=== PATIENT | female | born 1955 | race Caucasian/White ===

== ENCOUNTER → 2019-09-08 13:48 | Outpatient (CLI) | payer MEDICARE, BC, SELFPAY ==
--- NOTE | 2019-09-08 14:05 | CT_ITS ---
PROCEDURE: CT CHEST W CON CLINCAL INDICATION: abnormal CXR/ RUL mass Right upper lobe mass COMPARISON: No exams were available for comparison TECHNIQUE: IV Contrast: 75ml Optiray 350 Axial images obtained with sagittal and coronal reformats. All CT scans at the facility use one or more dose reduction, viz: automated exposure control, ma/kV adjustment per patient size (including targeted exams where dose is matched to indication, i.e. head), or iterative reconstruction technique. FINDINGS: HEART AND MEDIASTINAL STRUCTURES: No mediastinal or hilar mass or adenopathy. There are few small mediastinal and right hilar lymph nodes noted. LUNGS AND PLEURAL SPACES: 2.2 cm right upper lobe mass. This is well-circumscribed and contains some calcification consistent with a granuloma. There is a 3 mm nodule along the right major fissure inferiorly and a 3 mm nodule in right middle lobe inferiorly. There are mild atelectatic changes or fibrotic changes in the right lung base posteriorly. There is a 4 mm noncalcified nodule in the left upper lobe BONY STRUCTURES: Mild thoracic scoliosis convex right with mild degenerative changes in the thoracic spine UPPER ABDOMEN: 3 cm hypodense lesion in the central aspect of the spleen. The margins are somewhat lobulated. ADDITIONAL FINDINGS: No other significant abnormalities. IMPRESSION: 1. Right upper lobe nodule corresponds to a partially calcified well-circumscribed nodule consistent with a granuloma. 2. There are scattered small pulmonary nodules which are 4 mm or less and are nonspecific. Consider 1 year follow-up to confirm stability. 3. Indeterminate splenic lesion measuring 3 cm. Most common etiology would include cyst or hemangioma. One cannot exclude the possibility of a metastatic focus. Ultrasound may be of further value to determine cystic or solid nature. Dictated by: Celso Warner MD 09/09/2019 07:03 Electronically signed by Celso Warner MD in [place] 09/09/2019 07:03
[2019-09-08 14:29] LABS: Blood Urea Nitrogen 16 mg/dL (7-18); Creatinine,Serum 1.19 mg/dL (0.55-1.02); Estimated Glomerular Filt Rate 46 ml/min (>60); GFR (African American) 55 ML/MIN (>60)
== END ==
PROVIDERS: PCP Emergency Medicine; Visit Provider Emergency Medicine
DX: Z01.812 Encounter for preprocedural laboratory examination (principal); R91.8 Other nonspecific abnormal finding of lung field
CPT/HCPCS: 36415; 71260; 82565; 84520; Q9967

== ENCOUNTER → 2020-03-08 13:11 | Outpatient (CLI) | payer MEDICARE, BC, SELFPAY ==
--- NOTE | 2020-03-08 13:11 | CT_ITS ---
PROCEDURE: CT CHEST WO CON CLINICAL INDICATION: 6 mth f/u COMPARISON: CT CT CHEST W CON from 09/08/2019 TECHNIQUE: Axial images obtained with sagittal and coronal reformats. All CT scans at the facility use one or more dose reduction, viz: automated exposure control, ma/kV adjustment per patient size (including targeted exams where dose is matched to indication, i.e. head), or iterative reconstruction technique. FINDINGS: HEART AND MEDIASTINAL STRUCTURES: Mediastinal or hilar mass or adenopathy. There are coronary artery calcifications present. LUNGS AND PLEURAL SPACES: Partially calcified right upper lobe nodule once again noted unchanged. There are mild atelectatic changes in the left lung base posteriorly. 2 mm nodules present in the right lower lobe posteriorly, right lower lobe anteriorly and right middle lobe unchanged. Small left upper lobe nodule at approximately 3-4 mm unchanged BONY STRUCTURES: There is ankylosis of the thoracic spine with thoracic scoliosis convex right. UPPER ABDOMEN: There is a low-dense lesion within the liver once again noted at 3 cm in with with some minimal peripheral calcification. This is not significantly changed. Incidental note made of bilateral calcification within the breast. Mammographic correlation recommended. ADDITIONAL FINDINGS: No other significant abnormalities. IMPRESSION: 1. Overall no change in the appearance of the chest with evidence of old granulomatous disease and small bilateral nodular opacities. No new nodules evident. 2. No change in the 3 cm lesion of the spleen. 3. Bilateral breast calcifications for which mammographic correlation is suggested. Dictated by: Celso Warner MD 03/09/2020 11:04 Celso Warner MD in [place] 03/09/2020 11:04
== END ==
PROVIDERS: PCP Emergency Medicine; Visit Provider Emergency Medicine
DX: R91.1 Solitary pulmonary nodule (principal)
CPT/HCPCS: 71250

== ENCOUNTER → 2020-09-20 12:39 | Outpatient (CLI) | payer MEDICARE, BC, SELFPAY ==
--- NOTE | 2020-09-20 12:43 | CT_ITS ---
PROCEDURE: CT CHEST W CON CLINCAL INDICATION: ABN CXR Follow up lung nodule Non-productive cough Pt hydrating X-Rays on pacs COMPARISON: CT CT CHEST WO CON from 03/08/2020 TECHNIQUE: IV Contrast: 75ml Isovue 370 Axial images obtained with sagittal and coronal reformats. All CT scans at the facility use one or more dose reduction, viz: automated exposure control, ma/kV adjustment per patient size (including targeted exams where dose is matched to indication, i.e. head), or iterative reconstruction technique. FINDINGS: HEART AND MEDIASTINAL STRUCTURES: Unremarkable. LUNGS AND PLEURAL SPACES: Partially calcified right upper lobe nodule once again noted measuring 2 cm unchanged. There are mild atelectatic or fibrotic changes in the lung bases. 3 mm nodule left upper lobe unchanged. No new nodules evident. BONY STRUCTURES: Mild thoracic scoliosis convex right with ankylosis of the midthoracic spine UPPER ABDOMEN: 3 cm hypodense lesion of the spleen is unchanged. ADDITIONAL FINDINGS: Bilateral breast calcifications once again noted IMPRESSION: Overall stable CT appearance of the chest. No change 3 cm splenic lesion Dictated by: Celso Warner MD 09/21/2020 13:18 Celso Warner MD in [place] 09/21/2020 13:18
[2020-09-20 13:18] LABS: Blood Urea Nitrogen 25 mg/dl (7-17); Estimated Glomerular Filt Rate 32 ml/min (>60); GFR (African American) 39 ML/MIN (>60)
== END ==
PROVIDERS: PCP Emergency Medicine; Visit Provider Emergency Medicine
DX: R91.1 Solitary pulmonary nodule (principal); R05 Cough; R93.89 Abnormal findings on diagnostic imaging of other specified body structures
CPT/HCPCS: 36415; 71260; 82565; 84520; Q9967

== ENCOUNTER → 2020-09-27 10:23 | Outpatient (CLI) | payer MEDICARE, BC, SELFPAY ==
[2020-09-30 11:45] LABS: Aspergillus flavus Negative (Neg:<1:1); Aspergillus fumigatus Negative (Neg:<1:1); Aspergillus niger Negative (Neg:<1:1)
[2020-09-30 14:01] LABS: Blastomyces Antibody Negative (Neg:<1:1)
[2020-10-03 13:27] LABS: QuantiFERON-TB Gold Plus Negative (Negative)
== END ==
PROVIDERS: Visit Provider Internal Medicine Pulmonary Disease
DX: J84.10 Pulmonary fibrosis, unspecified (principal); Z72.0 Tobacco use
CPT/HCPCS: 36415; 86480; 86606; 86612

== ENCOUNTER → 2020-11-01 07:45 | Outpatient (CLI) | payer MEDICARE, BC, SELFPAY ==
--- NOTE | 2020-11-01 08:22 | CT_ITS ---
PROCEDURE: CT CHEST W CON CLINCAL INDICATION: CHEST PAIN Follow up Lung nodule COMPARISON: CT CT CHEST W CON from 09/08/[address] CHEST W CON from 09/20/2020 TECHNIQUE: IV Contrast: 75ml Isovue 370 Axial images obtained with sagittal and coronal reformats. All CT scans at the facility use one or more dose reduction, viz: automated exposure control, ma/kV adjustment per patient size (including targeted exams where dose is matched to indication, i.e. head), or iterative reconstruction technique. FINDINGS: HEART AND MEDIASTINAL STRUCTURES: No mediastinal or hilar mass or adenopathy. There is mild thickening of the pericardium anteriorly on the right the suggesting small effusion. LUNGS AND PLEURAL SPACES: COPD changes. Partially calcified 2.2 cm right upper lobe nodule once again noted benign-appearing consistent with a granuloma. 3 mm nodule right lower lobe anteriorly unchanged. Minimal atelectatic or fibrotic changes are present in the lung bases. There is mild degree of motion artifact which does somewhat obscure fine detail. 3 mm noncalcified nodule left lower lobe unchanged. 3 mm nodule left upper lobe unchanged. No new nodules are evident. BONY STRUCTURES: There is mild midthoracic curvature convex right UPPER ABDOMEN: 3 cm hypodense lesion of the spleen unchanged ADDITIONAL FINDINGS: There are bilateral breast calcifications. These may be better evaluated with mammography. IMPRESSION: 1. Overall stable CT appearance of the chest. No change in the pulmonary nodules. 2. COPD with atelectatic or fibrotic changes in the lung bases 3. No change 3 cm hypodense lesion of the spleen. 4. Bilateral breast calcifications are present. Suggest mammography for further evaluation Dictated by: Celso Warner MD 11/02/2020 12:48 Celso Warner MD in [place] 11/02/2020 12:48
[2020-11-01 08:47] LABS: Blood Urea Nitrogen 26 mg/dl (7-17); Estimated Glomerular Filt Rate 35 ml/min (>60); GFR (African American) 42 ML/MIN (>60)
== END ==
PROVIDERS: PCP Emergency Medicine; Visit Provider Emergency Medicine
DX: R07.9 Chest pain, unspecified (principal)
CPT/HCPCS: 36415; 71260; 82565; 84520; Q9967

== ENCOUNTER 2021-01-20 01:56 | Emergency (ER) | payer MEDICARE, BC, SELFPAY ==
[2021-01-20 01:59] VITALS: BP 160/70; PULSE 76; RESP 16; TEMP 36.5; O2SAT 97; BMI 45.1
--- NOTE | 2021-01-20 02:04 | ECG_ITS ---
APPROVED REPORT Exam: Resting ECG HR:73 bpm ECG Measurements Heart Rate 73 AXES PA 182 P 64 QRSd 104 QRS 36 QT 388 T -6 QTc 427 Conclusion Normal sinus rhythm with sinus arrhythmia ST & T wave abnormality, consider inferior ischemia Abnormal ECG Electronically signed by : Trevin Yung, 01/21/2021 17:33:00
--- NOTE | 2021-01-20 02:13 | XR_ITS ---
PROCEDURE INFORMATION: Exam: XR Chest Exam date and time: 01/20/2021 2:13 AM Age: 65 years old Clinical indication: Injury or trauma; Blunt trauma (contusions or hematomas); Patient HX: Fall, syncope, lac to back of head TECHNIQUE: Imaging protocol: XR of the chest. Views: 2 views. COMPARISON: CT CHEST W CON 11/01/2020 9:31 AM FINDINGS: Lungs: Stable appearance of right upper lobe solid pulmonary nodule. No focal consolidation. No appreciable pulmonary edema. Pleural spaces: No pleural effusion. No pneumothorax. Heart/Mediastinum: Cardiomediastinal silouhette is unchanged. Bones/joints: No acute osseous abnormality. Soft tissues: Unremarkable. IMPRESSION: No acute findings.
--- NOTE | 2021-01-20 02:13 | CT_ITS ---
PROCEDURE INFORMATION: Exam: CT Head Without Contrast Exam date and time: 01/20/2021 2:13 AM Age: 65 years old Clinical indication: Injury or trauma; Laceration; Consciousness not specified; Without residual foreign body; Scalp; Syncope and collapse; Patient HX: Syncope, fall with lac to back of head; Additional info: Fall with head lac TECHNIQUE: Imaging protocol: Computed tomography of the head without contrast. Radiation optimization: All CT scans at this facility use at least one of these dose optimization techniques: automated exposure control; mA and/or kV adjustment per patient size (includes targeted exams where dose is matched to clinical indication); or iterative reconstruction. COMPARISON: No relevant prior studies available. FINDINGS: Brain: Age appropriate atrophy and small vessel ischemic change. No evidence of intracranial hemorrhage, mass effect, midline shift or extra-axial fluid collections. Midline structures are normal. Atkins-white matter differentiation is normal. Cerebral ventricles: No ventriculomegaly. Paranasal sinuses: Visualized sinuses are unremarkable. No fluid levels. Mastoid air cells: Visualized mastoid air cells are well aerated. Vasculature: Carotid atherosclerotic calcification. Bones/joints: Unremarkable. No acute fracture. Soft tissues: There is a left parietal scalp laceration and hematoma. IMPRESSION: No acute intracranial injury.
--- NOTE | 2021-01-20 02:13 | CT_ITS ---
PROCEDURE INFORMATION: Exam: CT Cervical Spine Without Contrast Exam date and time: 01/20/2021 2:13 AM Age: 65 years old Clinical indication: Injury or trauma; Other: Syncope; Laceration; Not specified; Patient HX: Fall with lac to back of head; Additional info: Fall with head lac TECHNIQUE: Imaging protocol: Computed tomography images of the cervical spine without contrast. Radiation optimization: All CT scans at this facility use at least one of these dose optimization techniques: automated exposure control; mA and/or kV adjustment per patient size (includes targeted exams where dose is matched to clinical indication); or iterative reconstruction. COMPARISON: CT CHEST W CON 11/01/2020 9:31 AM FINDINGS: Vertebrae: No acute fracture. Normal alignment. Soft tissues: Unremarkable. Lungs: Lung apices are normal. IMPRESSION: No acute findings.
--- NOTE | 2021-01-20 02:13 | XR_ITS ---
PROCEDURE INFORMATION: Exam: XR Pelvis Exam date and time: 01/20/2021 2:13 AM Age: 65 years old Clinical indication: Injury or trauma; Fall; Blunt trauma (contusions or hematomas); Bilateral; Pelvic region TECHNIQUE: Imaging protocol: XR pelvis. Views: 1 or 2 view. COMPARISON: No relevant prior studies available. FINDINGS: Bones/joints: No acute fracture or malalignment. Pubic symphysis and bilateral sacroiliac joints are congruent. Soft tissues: Unremarkable. IMPRESSION: No acute findings.
[2021-01-20 02:29] LABS: Alanine Aminotransferase 10 U/L (12-78); Albumin Level 4.4 g/dl (3.5-5.0); Alkaline Phosphatase 95 U/L (38-126); Anion Gap 12.2 mEq/L (5-15); Aspartate Amino Transferase 22 U/L (14-36); Bilirubin,Total 0.5 mg/dl (0.2-1.3); Blood Urea Nitrogen 27 mg/dl (7-17); Calcium 9.7 mg/dl (8.4-10.2); Carbon Dioxide 31 mmol/L (22.0-30.0); Chloride 97 mmol/L (98-107); Creatinine Clearance Estimated 12 mL/min (50-200); Estimated Glomerular Filt Rate 35 ml/min (>60); GFR (African American) 42 ML/MIN (>60); Globulin 4.6 g/dL (1.3-3.2); Glucose 109 mg/dl (74-100); Potassium 4.2 mmoL/L (3.5-5.1); Sodium 136 mmol/L (136-145)
[2021-01-20 02:34] LABS: C-Reactive Protein 20.9 mg/L (0-4)
[2021-01-20 02:37] LABS: Basophils % 0.4 % (0.1-2.0); Eosinophils # 0.3 K/mm3 (0.0-0.4); Eosinophils % 3.1 % (0.1-12.0); Hemoglobin 10.3 g/dL (12.2-16.2); Lymphocytes # 2.1 K/mm3 (0.7-4.5); Lymphocytes % 24.2 % (10-50); Mean Corpuscular HGB Conc 33.2 g/dL (31.8-35.4); Mean Corpuscular Volume 81.1 fl (81-99); Mean Platelet Volume 7.9 fl (7.4-10.4); Monocytes # 0.3 K/mm3 (0.1-1.0); Monocytes % 3.8 % (1.7-9.3); Neutrophils # 5.9 K/mm3 (1.8-7.8); Neutrophils % 68.6 % (37.0-80.0); Platelet Count 266 K/mm3 (142-424); Red Blood Count 3.82 M/mm3 (4.20-5.40); Red Cell Distribution Width 16.8 % (11.5-17.5); White Blood Count 8.6 K/mm3 (4.8-10.8)
[2021-01-20 02:46] LABS: Troponin I < 0.01 ng/ml (0.00-0.034)
[2021-01-20 03:01] LABS: Erythrocyte Sedimentation Rate 117 mm/hr (0-30)
[2021-01-20 03:57] VITALS: BP 154/60; PULSE 61; O2SAT 98
[2021-01-20 04:15] VITALS: BP 176/63; PULSE 60; O2SAT 97
[2021-01-20 04:31] VITALS: BP 173/68; PULSE 61; O2SAT 98
--- NOTE | 2021-01-20 04:38 | HMH.EDSYNC ---
ED Disposition Clinical Impression: Vasovagal syncope, Renal insufficiency Scalp laceration Qualifiers: Encounter type: initial encounter Qualified Code(s): S01.01XA - Laceration without foreign body of scalp, initial encounter Hypertension Qualifiers: Hypertension type: essential hypertension Qualified Code(s): I10 - Essential (primary) hypertension Diabetes mellitus type II, controlled Qualifiers: Diabetes mellitus detention insulin use: unspecified technician terminal and repeater insulin use status Diabetes mellitus complication status: with other specified complication Qualified Code(s): E11.69 - Type 2 diabetes mellitus with other specified complication Conjunctivitis Qualifiers: Conjunctivitis type: acute Acute conjunctivitis type: unspecified Laterality: bilateral Qualified Code(s): H10.33 - Unspecified acute conjunctivitis, bilateral Disposition: Home, Self-Care Condition on Discharge: Good Instructions: DI for Syncope in Adults (Fainting) Additional Instructions: lex out 10 days and use eye drops bid x 3 days Referrals: Lasha Boogie MD [Primary Care Provider] - - Critical Care Critical Care Time: No Attestation: On 01/20/21, the high probability of a clinically significant, sudden or life threatening deterioration of the following system(s) required my full and direct attention, intervention and personal management. The time I documented below is in addition to time spent performing reported procedures but includes the following listed in this critical care notation. Medical Decision Making - Medical Records Medical records reviewed: Yes: I reviewed the patient's medical records. - [place] Inquiry Pt receiving controlled substance: No Vital Signs: 01/20/21 01:59 01/20/21 03:57 01/20/21 04:15 Temperature 97.7 F Temperature Source Oral Pulse Rate 61 60 Pulse Rate [Right] 76 Respiratory Rate 16 Blood Pressure 154/60 H 176/63 H Blood Pressure [Right Arm] 160/70 H Blood Pressure Mean Blood Pressure Mean [Right Arm] 100 Blood Pressure Source [Right Arm] Automatic Cuff Blood Pressure Position [Right Arm] Supine 02 Sat by Pulse Oximetry 97 98 97 Oxygen Delivery Method Room Air 01/20/21 04:31 01/20/21 05:31 Temperature Temperature Source Pulse Rate 61 58 L Pulse Rate [Right] Respiratory Rate Blood Pressure 173/68 H 173/61 H Blood Pressure [Right Arm] Blood Pressure Mean 102 Blood Pressure Mean [Right Arm] Blood Pressure Source [Right Arm] Blood Pressure Position [Right Arm] 02 Sat by Pulse Oximetry 98 97 Oxygen Delivery Method - Lab Data Lab results reviewed: Yes: I reviewed the patient's lab results. Lab Results 01/20/21 02:08: WBC 8.6, RBC 3.82 L, Hgb 10.3 L, Hct 31.0 L, MCV 81.1, MCH 27.0, MCHC 33.2, RDW 16.8, Plt Count 266, MPV 7.9, Neut % (Auto) 68.6, Lymph % (Auto) 24.2, Cache % (Auto) 3.8, Eos % (Auto) 3.1, Baso % (Auto) 0.4, Neut # (Auto) 5.9, Lymph # (Auto) 2.1, Cache # (Auto) 0.3, Eos # (Auto) 0.3, Baso # (Auto) 0.0, ESR 117 H 01/20/21 02:08: Sodium 136, Potassium 4.2, Chloride 97 L, Carbon Dioxide 31 H, Anion Gap 12.2, BUN 27 H, Creatinine 1.50 H, Estimated Creat Clear 12, Estimated GFR 35 L, Est GFR ( Amer) 42 L, Glucose 109 H, Calcium 9.7, Total Bilirubin 0.5, AST 22, ALT 10 L, Alkaline Phosphatase 95, Troponin I < 0.01, C-Reactive Protein 20.9 H, Total Protein 9.0 H, Albumin 4.4, Globulin 4.6 H, Albumin/Globulin Ratio 1.0 L, Procalcitonin 0.080 01/20/21 05:20: Urine Color Yellow, Urine Appearance Sl cloudy, Urine pH 6.0, Ur Specific [place] <= 1.005, Urine Protein Negative, Urine Glucose (UA) Negative, Urine Ketones Negative, Urine Blood Negative, Urine Nitrate Negative, Urine Bilirubin Negative, Urine Urobilinogen 0.2, Ur Leukocyte Esterase Negative, Urine Bacteria Trace Result diagrams: 01/20/21 02:08 01/20/21 02:08 Orders (Tests/Meds): ED MEDICATIONS Generic Name Dose Route Start Last Admin Trade Name Freq PRN Reason Stop Do
[2021-01-20 05:31] VITALS: BP 173/61; PULSE 58; O2SAT 97
[2021-01-20 05:32] LABS: Microscopic, Urine URINE MICROSCOPIC (MICROSCOPIC)
[2021-01-20 05:35] LABS: Appearance,Urine SL CLOUDY (Clear); Bilirubin,Urine Negative (Negative); Blood, Urine Negative (Negative); Color,Urine YELLOW (Yellow); Glucose,Urine (UA) Negative (Negative); Ketones,Urine Negative (Negative); Leukocyte Esterase,Urine Negative (Negative); Nitrate,Urine Negative (Negative); Protein,Urine Negative (Negative); Specific Gravity, Urine <= 1.005 (1.005-1.030); Urobilinogen,Urine 0.2 EU/dl (0.2)
[2021-01-20 05:46] LABS: Bacteria,Urine Trace /lpf
[2021-01-20 06:32] VITALS: BP 167/72; PULSE 61; RESP 16; TEMP 36.5; O2SAT 97
== END 2021-01-20 06:45 | disposition home or self-care (01) ==
PROVIDERS: Emergency Provider Emergency Medicine; PCP Emergency Medicine
DX: R55 Syncope and collapse (principal)
CPT/HCPCS: 70450; 71046; 72125; 72170; 80053; 81001; 84145; 84484; 85025; 85651; 86140; 87070; 87077; 87186; 90471; 90714; 93005; 96365; 96366; 96375; 99283

== ENCOUNTER 2021-01-20 08:55 | Emergency (ER) | payer MEDICARE, BC, SELFPAY ==
[2021-01-20 08:56] VITALS: BP 139/52; PULSE 65; RESP 18; TEMP 36.4; O2SAT 98; BMI 31.1
[2021-01-20 08:58] VITALS: BP 144/60; PULSE 61; O2SAT 100
--- NOTE | 2021-01-20 09:00 | PC.NURSE ---
Doctor at bedside suturing wound.
--- NOTE | 2021-01-20 09:16 | HMH.EDGENADL ---
ED Disposition Clinical Impression: Scalp laceration Qualifiers: Encounter type: initial encounter Qualified Code(s): S01.01XA - Laceration without foreign body of scalp, initial encounter Disposition: Home, Self-Care Condition on Discharge: Good Instructions: DI for Laceration Repair -- [place] Additional Instructions: Additional instructions for SCALP LACERATION: Clean the wound daily with soap and water. You may shower and shampoo your hair. Avoid submerging the wound. No swimming.. Apply a thin film of antibiotic ointment such as neosporin, polysporin, or triple antibiotic daily after showering. Be careful when combing or brushing hair so that you so not snag the lex with a comb or brush. See your primary care physician or return to the [facility] in 7 days for staple removal. The [facility] is open 9AM to 9 PM, 7 days a week. Return if any signs of infection including increasing pain, pus drainage, swelling, redness, red streaks, or fever. Referrals: Provider,Referral, [Primary Care Provider] - - Critical Care Critical Care Time: No Attestation: On 01/20/21, the high probability of a clinically significant, sudden or life threatening deterioration of the following system(s) required my full and direct attention, intervention and personal management. The time I documented below is in addition to time spent performing reported procedures but includes the following listed in this critical care notation. Medical Decision Making - [place] Inquiry Pt receiving controlled substance: No Vital Signs: 01/20/21 08:56 01/20/21 08:58 Temperature 97.5 F L Temperature Source Oral Pulse Rate 61 Pulse Rate [Right] 65 Respiratory Rate 18 Blood Pressure 144/60 H Blood Pressure [Right Arm] 139/52 L Blood Pressure Mean [Right Arm] 81 02 Sat by Pulse Oximetry 98 100 Oxygen Delivery Method Room Air Room Air General Adult HPI - General Chief complaint: Wound/Laceration Stated complaint: laceration Time Seen by Provider: 01/20/21 08:55 Mode of Arrival: EMS Limitations: No Limitations Description of Symptoms (Recalled from ER Triage Doc. by RN): pt via EMS from [facility] for cut to back of head still bleeding. seen in ED last night for fall & lac repaired in ED. - History of Present Illness HPI narrative: Brought in by ambulance from [facility] for continued bleeding from a scalp laceration. Laceration was repaired last night in the emergency department with lex. Continues to trickle blood. The patient has no other complaints. - Related Data Home Medications Medication Instructions Recorded Confirmed atorvastatin 20 mg tablet 20 mg PO DAILY 09/02/19 01/20/21 furosemide 40 mg tablet 40 mg PO DAILY 09/02/19 01/20/21 hydrochlorothiazide 12.5 mg capsule 12.5 mg PO DAILY 09/02/19 01/20/21 melatonin 5 mg capsule 5 mg PO QHS cap 09/02/19 01/20/21 metformin 750 mg tablet,extended 750 mg PO BID 09/02/19 01/20/21 release 24 hr mirtazapine 15 mg tablet 15 mg PO QHS 09/02/19 01/20/21 paliperidone palmitate 234 mg/1.5 234 mg IM .q 4 weeks ml 09/02/19 01/20/21 mL intramuscular syringe prazosin 2 mg capsule 2 mg PO QHS 09/02/19 01/20/21 sertraline 100 mg tablet 150 mg PO DAILY 01/01/21 01/20/21 Oxybutynin Chloride [Ditropan Xl] 5 mg PO DAILY 01/20/21 01/20/21 Allergies Allergy/AdvReac Type Severity Reaction Status Date / Time latex Allergy Intermediate Rash Verified 01/01/21 11:20 Sulfa (Sulfonamide Allergy Intermediate Rash Verified 01/01/21 11:20 Antibiotics) [facility] History - Hepatitis A Screen Drug use history?: No High risk sexual behaviors?: No History of sexually transmitted infection?: No Currently employed?: No Childcare worker?: No Do you have indoor plumbing?: Yes Do you have electricity?: Yes Attestation statement:: This patient has been screened for Hepatitis A risk factors. I have reviewed the patient's past medical history: Yes
--- NOTE | 2021-01-20 09:28 | PC.NURSE ---
Assisted MD with laceration. Pt tolerated well.
[2021-01-20 09:32] VITALS: BP 133/64; PULSE 69; O2SAT 96
--- NOTE | 2021-01-20 09:40 | PC.NURSE ---
Called Sari to contact Wayne due to no answer. Will contact to notify pt is ready for DC
[2021-01-20 09:44] VITALS: BP 133/64; PULSE 72; RESP 18; TEMP 36.6; O2SAT 96
== END 2021-01-20 10:45 | disposition home or self-care (01) ==
PROVIDERS: Emergency Provider Emergency Medicine; PCP Emergency Medicine
DX: R55 Syncope and collapse (principal); S01.01XA Laceration without foreign body of scalp, initial encounter; W18.09XA Striking against other object with subsequent fall, initial encounter; Y92.013 Bedroom of single-family (private) house as the place of occurrence of the external cause; I10 Essential (primary) hypertension; E11.69 Type 2 diabetes mellitus with other specified complication; H10.33 Unspecified acute conjunctivitis, bilateral; F41.8 Other specified anxiety disorders; Z79.899 Other long term (current) drug therapy; Z28.9 Immunization not carried out for unspecified reason
CPT/HCPCS: 12001; 70450; 71046; 72125; 72170; 80053; 81001; 84145; 84484; 85025; 85651; 86140; 87070; 87077; 90471; 90714; 93005; 96365; 96366; 96375; 99281; 99283

== ENCOUNTER → 2021-06-07 10:40 | Outpatient (CLI) | payer MEDICARE, BC, SELFPAY | PROVIDERS: Visit Provider Nurse Practitioner Family | DX: N39.0 Urinary tract infection, site not specified (principal) ==

== ENCOUNTER → 2021-06-10 13:05 | Outpatient (POV) | payer MEDICARE, BC, SELFPAY | PROVIDERS: Visit Provider Internal Medicine Nephrology | DX: Z00.00 Encounter for general adult medical examination without abnormal findings (principal) ==

== ENCOUNTER → 2021-06-13 09:13 | Outpatient (CLI) | payer MEDICARE, BC, SELFPAY ==
[2021-06-13 09:16] LABS: Microscopic, Urine URINE MICROSCOPIC (MICROSCOPIC)
[2021-06-13 11:24] LABS: Appearance,Urine CLEAR (Clear); Bilirubin,Urine Negative (Negative); Blood, Urine Negative (Negative); Color,Urine YELLOW (Yellow); Glucose,Urine (UA) Negative (Negative); Ketones,Urine Negative (Negative); Leukocyte Esterase,Urine 1+ (Negative); Nitrate,Urine Negative (Negative); PH,Urine 5.5 (5.0-8.5); Protein,Urine Negative (Negative); Specific Gravity, Urine <= 1.005 (1.005-1.030); Urobilinogen,Urine 0.2 EU/dl (0.2)
[2021-06-13 11:36] LABS: Bacteria,Urine 1+ /lpf; RBC,Urine Occasional #/hpf (0-3)
== END ==
PROVIDERS: Visit Provider Nurse Practitioner Family
DX: N39.0 Urinary tract infection, site not specified (principal)
CPT/HCPCS: 81001; 87086

== ENCOUNTER → 2021-12-09 11:15 | Outpatient (POV) | payer MEDICARE, BC, SELFPAY | PROVIDERS: Visit Provider Internal Medicine Nephrology | DX: Z00.00 Encounter for general adult medical examination without abnormal findings (principal) ==

== ENCOUNTER → 2021-12-09 12:34 | Outpatient (CLI) | payer MEDICARE, BC, SELFPAY ==
[2021-12-09 13:05] LABS: Basophils # 0.1 K/mm3 (0-0.2); Basophils % 1.6 % (0.1-2.0); Eosinophils # 0.3 K/mm3 (0.0-0.4); Eosinophils % 4.1 % (0.1-12.0); Hematocrit 34.1 % (37.0-47.0); Hemoglobin 11.4 g/dL (12.2-16.2); Lymphocytes # 1.6 K/mm3 (0.7-4.5); Lymphocytes % 24.3 % (10-50); Mean Corpuscular HGB Conc 33.4 g/dL (31.8-35.4); Mean Corpuscular Volume 83.6 fl (81-99); Mean Platelet Volume 7.7 fl (7.4-10.4); Monocytes # 0.4 K/mm3 (0.1-1.0); Monocytes % 5.4 % (1.7-9.3); Neutrophils # 4.2 K/mm3 (1.8-7.8); Neutrophils % 64.6 % (37.0-80.0); Platelet Count 244 K/mm3 (142-424); Red Blood Count 4.08 M/mm3 (4.20-5.40); Red Cell Distribution Width 15.9 % (11.5-17.5); White Blood Count 6.6 K/mm3 (4.8-10.8)
[2021-12-09 13:51] LABS: Albumin Level 4.3 g/dl (3.5-5.0); Anion Gap 10.3 mEq/L (5-15); Blood Urea Nitrogen 27 mg/dl (7-17); Calcium 10.1 mg/dl (8.4-10.2); Carbon Dioxide 31 mmol/L (22.0-30.0); Chloride 99 mmol/L (98-107); Estimated Glomerular Filt Rate 41 ml/min (>60); GFR (African American) 50 ML/MIN (>60); Glucose 91 mg/dl (74-100); Phosphorous 4.4 mg/dl (2.5-4.5); Potassium 4.3 mmoL/L (3.5-5.1); Sodium 136 mmol/L (136-145)
[2021-12-09 14:51] LABS: Creatinine,Urine Random 27 mg/dL (Not Estab.); Microalbumin < 6.000 mg/L (0-16.7)
== END ==
PROVIDERS: PCP Emergency Medicine; Visit Provider Internal Medicine Nephrology
DX: N18.32 Chronic kidney disease, stage 3b (principal)
CPT/HCPCS: 36415; 80069; 82043; 82570; 85025

== ENCOUNTER → 2023-06-03 15:37 | Outpatient (CLI) | payer MEDICARE, OTHER, BC, SELFPAY ==
--- NOTE | 2023-06-03 15:41 | CT_ITS ---
FINAL REPORT TECHNIQUE: Thin section axial images were obtained through the lungs using a low-dose technique per lung cancer screening protocol. Reconstruction images were obtained using the axial data. Exam was performed using dose reduction technique. CLINICAL HISTORY: lung cancer screening smoker, .5 ppd x 2 years COMPARISON: CT chest 11/01/2020 FINDINGS: CTDLvol: 2.90 DLP: 99.51 Current smoker Half pack per day for 2 years Lungs: There is a 3 mm left upper lobe nodule seen on image 23 which is new from prior. There is evidence of prior granulomatous disease with a large right upper lobe granuloma which is stable. There is a 3 mm nodule along the anterior right lower lobe which is unchanged. The lungs are otherwise clear. Lymph nodes: There are mildly prominent bilateral axillary lymph nodes which are unchanged and favored to be reactive. No other lymphadenopathy. Mediastinum: Heart size is normal. Pleura/pericardium: No pleural or pericardial effusion. Other: No acute abnormality in the upper abdomen. IMPRESSION: New left upper lobe 3 mm nodule and other stable lung findings. Lung RADS: 2 Recommendation: 12-month CT chest low-dose Reviewed, Interpreted and Dictated by Eugenie Velasco MD Transcribed by Neelam Bhatti Authenticated and [facility]
== END ==
PROVIDERS: PCP Emergency Medicine; Visit Provider Emergency Medicine
DX: R93.89 Abnormal findings on diagnostic imaging of other specified body structures (principal); Z87.891 Personal history of nicotine dependence
CPT/HCPCS: 71271

== ENCOUNTER → 2023-07-06 16:25 | Outpatient (CLI) | payer MEDICARE, OTHER, BC, SELFPAY ==
--- NOTE | 2023-07-06 16:26 | MM_ITS ---
PROCEDURE INFORMATION: Exam: MG Bilateral Screening 3D Mammography Exam date and time: 07/06/2023 4:22 PM Age: 67 years old Clinical indication: Screening examination TECHNIQUE: Imaging protocol: Bilateral Screening tomosynthesis and 2D mammography including computer-aided detection (CAD) when performed. Scoliosis. Difficult to position COMPARISON: No relevant prior studies available. Baseline FINDINGS: MAMMOGRAPHY: Breast composition: The breasts are heterogeneously dense, which may obscure small masses. Mass: Questionable 1.2 cm mass in the posterior left 9 o'clock axis Architectural distortion: None. Calcifications: No suspicious calcifications. Asymmetric density: None. Skin thickening: None. Axillary adenopathy: Limited evaluation of posterior tissue and axilla due to the patient's inability to fully cooperate with the examination. IMPRESSION: Patient to be recalled for spot compression views of the left breast in the CC and MLO projections, a full 90 degree lateral view, and left breast ultrasound for further evaluation of a left breast mass. ASSESSMENT: BI-RADS Category 0: Incomplete- Need Additional Imaging Evaluation and/or Prior Mammograms for Comparison
== END ==
PROVIDERS: PCP Emergency Medicine; Visit Provider Emergency Medicine
DX: Z12.31 Encounter for screening mammogram for malignant neoplasm of breast (principal)
CPT/HCPCS: 77063; 77067

== ENCOUNTER 2023-11-19 18:11 | Inpatient (IN) | payer MEDICARE, OTHER, BC, SELFPAY ==
[2023-11-19 18:11] VITALS: BP 121/55; PULSE 96; RESP 18; TEMP 36.7; O2SAT 98; BMI 26.2
--- NOTE | 2023-11-19 18:14 | ED_ITS ---
Discharge Plan Disposition Patient Disposition: Admitted Condition: Fair Prescriptions Prescriptions: No Action sertraline 100 mg tablet 150 mg PO DAILY atorvastatin [Lipitor] 20 mg tablet 20 mg PO DAILY furosemide 40 mg tablet 40 mg PO DAILY hydrochlorothiazide 12.5 mg capsule 12.5 mg PO DAILY melatonin 5 mg capsule 5 mg PO QHS metformin 750 mg tablet extended release 24 hr 750 mg PO BID mirtazapine 15 mg tablet 15 mg PO QHS Invega Sustenna 234 mg/1.5 mL syringe 234 mg IM .q 4 weeks Patient Comments: due 09/21/19 prazosin 2 mg capsule 2 mg PO QHS oxybutynin chloride 5 MG tablet extended release 24hr 5 mg PO DAILY Referrals Follow up/Referrals: Provider,Referral, MD [Primary Care Provider] - See instructions Clinical Impressions Clinical Impression: Acute nontraumatic kidney injury, Vaginal yeast infection, Lactic acidosis, Abdominal pain, lower Instructions Patient Instructions: DI for Acute Abdominal Pain Discharge ED Provider: Ollie Slater General Adult HPI General Chief complaint: Abdominal Pain Stated complaint: ABD pain Time Seen by Provider: 11/19/23 18:13 History of Present Illness HPI narrative: Patient presents for evaluation of abdominal pain. Patient states that her pain began around 9 AM this morning. She has not had any chest pain shortness of breath fever chills hemoptysis hematochezia melena nausea vomiting diarrhea. She has tolerated 3 meals today. She states her pain is in the lower abdomen nonradiating persistent. Patient has past medical history of chronic renal insufficiency, type 2 diabetes mellitus, hyperlipidemia, PTSD, hypertension and major depressive disorder. Related Data Home Medications Medication Instructions Recorded Confirmed atorvastatin 20 mg tablet (Lipitor) 20 mg PO DAILY High cholesterol 09/02/19 01/20/21 furosemide 40 mg tablet 40 mg PO DAILY Fluid 09/02/19 01/20/21 hydrochlorothiazide 12.5 mg capsule 12.5 mg PO DAILY High blood 09/02/19 01/20/21 pressure melatonin 5 mg capsule 5 mg PO QHS sleep 09/02/19 01/20/21 metformin 750 mg tablet,extended 750 mg PO BID Diabetes 09/02/19 01/20/21 release 24 hr mirtazapine 15 mg tablet 15 mg PO QHS sleep 09/02/19 01/20/21 paliperidone palmitate 234 mg/1.5 234 mg IM .q 4 weeks behavior 09/02/19 01/20/21 mL intramuscular syringe (Invega Martine) prazosin 2 mg capsule 2 mg PO QHS High blood pressure 09/02/19 01/20/21 sertraline 100 mg tablet 150 mg PO DAILY Depression 01/01/21 01/20/21 oxybutynin chloride 5 mg 5 mg PO DAILY bladder 01/20/21 01/20/21 tablet,extended release 24 hr Allergies Allergy/AdvReac Type Severity Reaction Status Date / Time latex Allergy Intermediate Rash Verified 01/01/21 11:20 Sulfa (Sulfonamide Allergy Intermediate Rash Verified 01/01/21 11:20 Antibiotics) [facility] Disclaimer: The information contained in this section may have been updated after the patient was seen, as this information can be updated by other users. Social History Smoking Status: Unknown if ever smoked alcohol intake: never current occupational status: retired Travel in the last 8 weeks: None housing: skilled nursing ROS Obtained: Yes Systems reviewed as appropriate & no additional complaints except as documented Physical Exam General General appearance: alert, in no apparent distress and other Head Head exam: atraumatic and normal inspection Eye Eye exam: Present normal appearance, PERRL and EOMI ENT ENT exam: Present normal exam, normal oropharynx and mucous membranes moist Neck Neck exam: Present normal inspection and full ROM Chest Chest inspection: Present normal inspection and symmetric chest wall rise Respiratory Respiratory exam: Present normal lung sounds bilaterally; Absent respiratory distress Cardiovascular Cardiovascular exam: Present regular rate, normal rhythm and normal heart sounds Abdominal Exam Abdominal exam: Present soft (Obese but soft) and tenderness (To palpation in the suprapubic area no rebound or guarding or rigidity. Bowel sounds are normal active.) External exam: Present erythema, tenderness and swelling Bimanual exam: Present other (There is a thick white discharge. The vaginal mucosa appears macerated and has pinpoint bleeding at the introitus) Extremities Exam Extremities exam: Present normal inspection and full ROM Back Exam Back exam: Present normal inspection and full ROM; Absent tenderness Neurological Exam Neurological exam: Present alert, oriented X3 and CN II-XII intact Psychiatric Psychiatric exam: Present normal mood and flat affect Skin Skin exam: Present warm, dry and normal color (Except for mentioned above in the in the genitourinary exam) Medical Decision Making Medical Records Medical records reviewed: Yes I reviewed the patient's medical records. [place] Inquiry Pt receiving controlled substance: No Vital Signs: 11/19/23 18:11 11/19/23 18:30 Temperature 98.0 F Temperature Source Oral Pulse Rate 96 H Pulse Rate [Radial] 96 H Respiratory Rate 18 Blood Pressure 122/60 Blood Pressure [Right Arm] 121/55 L Blood Pressure Mean 85 Blood Pressure Mean [Right Arm] 77 Blood Pressure Source [Right Arm] Automatic Cuff Blood Pressure Position [Right Arm] Sitting 02 Sat by Pulse Oximetry 98 98 Oxygen Delivery Method Room Air Lab Data Lab results reviewed: Yes I reviewed the patient's lab results. Lab Results 11/19/23 18:42: WBC 2.9 L, RBC 3.17 L, Hgb 9.1 L, Hct 28.1 L, MCV 88.6, MCH 28.8, MCHC 32.6, RDW 15.9, Plt Count 202, MPV 8.0, Neut % (Auto) 61.5, Lymph % (Auto) 27.4, [place] % (Auto) 7.7, Eos % (Auto) 2.2, Baso % (Auto) 1.1, Neut # (Auto) 1.8, Lymph # (Auto) 0.8, [place] # (Auto) 0.2, Eos # (Auto) 0.1, Baso # (Auto) 0.0, Sodium 135 L, Potassium 4.5, Chloride 96 L, Carbon Dioxide 29, Anion Gap 14.5, BUN 40 H, Creatinine 1.80 H, Estimated Creat Clear 28, Estimated GFR 28 L, Est GFR ( Amer) 34 L, Glucose 158 H, Calcium 9.5, Total Bilirubin 0.6, AST 29, ALT 21, Alkaline Phosphatase 156 H, Troponin I < 0.01, Total Protein 7.6, Albumin 3.7, Globulin 3.9 H, Albumin/Globulin Ratio 0.9 L 11/19/23 19:00: Lactate 3.4 H 11/19/23 20:32: Urine Color Yellow, Urine Appearance Sl cloudy, Urine pH 6.0, Ur Specific [place] 1.015, Urine Protein Negative, Urine Glucose (UA) Negative, Urine Ketones Negative, Urine Blood 2+, Urine Nitrate Negative, Urine Bilirubin Negative, Urine Urobilinogen 0.2, Ur Leukocyte Esterase 3+ A, Urine RBC 5-10, Urine WBC 10-20, Ur Squamous Epith Cells 5-10, Urine Bacteria 3+ 11/19/23 18:42 11/19/23 18:42 Orders (Tests/Meds): ED MEDICATIONS Generic Name Dose Route Start Last Admin Trade Name Freq PRN Reason Stop Dose Admin Ceftriaxone Sodium 1 gm/ 50 mls @ 100 mls/hr 11/19/23 19:15 11/19/23 19:40 Sodium Chloride IV 11/29/23 19:14 100 mls/hr Q24H JACOB Administration Fluconazole 200 mg in 100 mls @ 200 mls/hr 11/19/23 20:30 11/19/23 20:50 Diflucan 200mg/100ml Ivpb IV 11/29/23 20:29 200 mls/hr Q24H JACOB Administration Discontinued Medications Generic Name Dose Route Start Last Admin Trade Name Freq PRN Reason Stop Dose Admin Acetaminophen 1,000 mg 11/19/23 18:21 11/19/23 18:45 Acetaminophen 1,000mg/100ml Vial IV 11/19/23 18:22 1,000 mg ONCE ONE Administration Belladonna Alkaloids 60 ml 11/19/23 18:21 11/19/23 18:45 Belladonna Alkaloids 60 Ml Ml PO 11/19/23 18:22 60 ml ONCE ONE Administration Lactated Ringer's 1,000 mls @ 999 mls/hr 11/19/23 18:21 11/19/23 18:45 Lactated Ringer's 1000 Ml Bag IV 11/19/23 19:21 999 mls/hr .Q1H1M ONE Administration Ondansetron HCl 4 mg 11/19/23 18:21 11/19/23 18:45 Ondansetron 4mg Odt SL 11/19/23 18:22 4 mg ONCE ONE Administration ORDERS Category Date Time Status CT abdomen pelvis wo con Stat Cat Scan 11/19/23 18:22 Completed CBC w/Auto Diff [Complete Blood Count Auto Diff] Stat Lab 11/19/23 18:42 Completed CMP [Comprehensive Metabolic Panel] Stat Lab 11/19/23 18:42 Completed Lactic Acid Stat Lab 11/19/23 19:00 Completed Trop I [Troponin I] Stat Lab 11/19/23 18:42 Completed Troponin I Q3H Lab 11/19/23 21:30 Ordered Troponin I Q3H Lab 11/20/23 00:30 Ordered UA [Urinalysis and Microscopic] Stat Lab 11/19/23 20:32 Completed Urine Culture Stat Micro 11/19/23 20:32 Received Medical Decision Narrative: In summary patient is a 68-year-old female who presents to the emergency department for evaluation of acute abdominal pain. Patient is hemodynamically stable upon arrival, febrile. Physical exam is remarkable for tenderness palpation suprapubic area of the abdomen over the bladder. There is no rebound or guarding or rigidity. Bowel sounds are normal active.. Differential diagnosis includes constipation versus urinary tract infection versus cystitis versus bowel obstruction etc. Initial workup will be conducted with hematologic labs, urinalysis, CT scan of the abdomen pelvis. Initial interventions include crystalloid bolus Toradol and Tylenol. Initial workup reviewed by me shows acute nontraumatic kidney injury, lactic acidosis, yeast vaginalis, and her urinalysis shows 3+ bacteria microscopic exam. Upon repeat evaluation still reports lower abdominal pain. Pool catheter placed and patient had over 700 cc of urine on immediate return. Given this I had an interactive discussion with hospital medicine regarding patient management. They agree for patient admission and ongoing treatment and management. Critical Care Critical Care Time Critical Care Time: No
--- NOTE | 2023-11-19 18:22 | CT_ITS ---
PROCEDURE INFORMATION: Exam: CT Abdomen And Pelvis Without Contrast Exam date and time: 11/19/2023 6:52 PM Age: 68 years old Clinical indication: Abdominal pain; Acute; Additional info: Acute abd pain TECHNIQUE: Imaging protocol: Computed tomography of the abdomen and pelvis without contrast. Radiation optimization: All CT scans at this facility use at least one of these dose optimization techniques: automated exposure control; mA and/or kV adjustment per patient size (includes targeted exams where dose is matched to clinical indication); or iterative reconstruction. COMPARISON: 1. CT LUNG SCREENING 06/03/2023 4:13 PM 2. CR XR PELVIS 1-2V 01/20/2021 2:24 AM FINDINGS: Liver: Normal. No mass. Gallbladder and bile ducts: Normal. No calcified stones. No ductal dilation. Pancreas: Normal. No ductal dilation. Spleen: Stable 3 cm hypoattenuating and partially calcified inferior splenic lesion. No splenomegaly. Adrenal glands: Normal. No mass. Kidneys and ureters: Normal. No hydronephrosis. Stomach and bowel: Hemostatic clip of the cecum. Minimal colonic diverticulosis. No obstruction. No mucosal thickening. Appendix: No evidence of appendicitis. Intraperitoneal space: Unremarkable. No free air. No significant fluid collection. Vasculature: Mild atherosclerosis. No abdominal aortic aneurysm. Lymph nodes: Unremarkable. No enlarged lymph nodes. Urinary bladder: Unremarkable as visualized. Reproductive: Unremarkable as visualized. Bones/joints: Levoconvex scoliosis. Degenerative changes. No acute fracture. Soft tissues: Likely gluteal injection granulomas. IMPRESSION: No acute findings.
[2023-11-19 18:30] VITALS: BP 122/60; PULSE 96; O2SAT 98
[2023-11-19] MEDS: LACTATED RINGERS 1000ML 1,000 ML 999 ML IV (18:45)
[2023-11-19] MEDS: ACETAMINOPHEN 1,000MG/100ML VIAL 1000 MG IV (18:45)
[2023-11-19] MEDS: BELLADONNA ALKALOIDS 60 ML ML PO (18:45)
[2023-11-19] MEDS: ONDANSETRON 4MG ODT 4 MG SL (18:45)
[2023-11-19 18:51] LABS: Basophils % 1.1 % (0.1-2.0); Eosinophils # 0.1 K/mm3 (0.0-0.4); Eosinophils % 2.2 % (0.1-12.0); Hematocrit 28.1 % (37.0-47.0); Hemoglobin 9.1 g/dL (12.2-16.2); Lymphocytes # 0.8 K/mm3 (0.7-4.5); Lymphocytes % 27.4 % (10-50); Mean Corpuscular HGB Conc 32.6 g/dL (31.8-35.4); Mean Corpuscular Hemoglobin 28.8 pg (27.0-31.2); Mean Corpuscular Volume 88.6 fl (81-99); Monocytes # 0.2 K/mm3 (0.1-1.0); Monocytes % 7.7 % (1.7-9.3); Neutrophils # 1.8 K/mm3 (1.8-7.8); Neutrophils % 61.5 % (37.0-80.0); Platelet Count 202 K/mm3 (142-424); Red Blood Count 3.17 M/mm3 (4.20-5.40); Red Cell Distribution Width 15.9 % (11.5-17.5); White Blood Count 2.9 K/mm3 (4.8-10.8)
[2023-11-19 18:52] LABS: Chloride 96 mmol/L (98-107)
[2023-11-19 18:53] LABS: Potassium 4.5 mmoL/L (3.5-5.1); Sodium 135 mmol/L (136-145)
[2023-11-19 18:56] LABS: Alanine Aminotransferase 21 U/L (12-78); Albumin Level 3.7 g/dl (3.5-5.0); Albumin/Globulin Ratio 0.9 (1.1-1.8); Alkaline Phosphatase 156 U/L (38-126); Anion Gap 14.5 mEq/L (5-15); Aspartate Amino Transferase 29 U/L (14-36); Bilirubin,Total 0.6 mg/dl (0.2-1.3); Blood Urea Nitrogen 40 mg/dl (7-17); Calcium 9.5 mg/dl (8.4-10.2); Carbon Dioxide 29 mmol/L (22.0-30.0); Creatinine Clearance Estimated 28 mL/min (50-200); Estimated Glomerular Filt Rate 28 ml/min (>60); GFR (African American) 34 ML/MIN (>60); Globulin 3.9 g/dL (1.3-3.2); Glucose 158 mg/dl (74-100); Total Protein,Serum 7.6 g/dl (6.3-8.2)
[2023-11-19 19:10] LABS: Troponin I < 0.01 ng/ml (0.00-0.034)
[2023-11-19 19:29] LABS: Lactic Acid 3.4 mmol/L (0.7-2.1)
[2023-11-19] MEDS: CEFTRIAXONE SODIUM 1 GM in 0.9 % SODIUM CHLORIDE 50 ML IV (19:40)
[2023-11-19 20:39] LABS: Microscopic, Urine URINE MICROSCOPIC (MICROSCOPIC)
[2023-11-19 20:42] LABS: Appearance,Urine SL CLOUDY (Clear); Bilirubin,Urine Negative (Negative); Blood, Urine 2+ (Negative); Color,Urine YELLOW (Yellow); Glucose,Urine (UA) Negative (Negative); Ketones,Urine Negative (Negative); Leukocyte Esterase,Urine 3+ (Negative); Nitrate,Urine Negative (Negative); Protein,Urine Negative (Negative); Specific Gravity, Urine 1.015 (1.005-1.030); Urobilinogen,Urine 0.2 EU/dl (0.2)
[2023-11-19] MEDS: FLUCONAZOLE IN NACL,ISO-OSM 200 MG/100 ML PIGGYBACK IV (20:50)
[2023-11-19 21:00] LABS: Bacteria,Urine 3+ /lpf
--- NOTE | 2023-11-19 21:02 | P.HP_ITS ---
History of Present Illness *Admission Date: 11/19/23 *Reason for visit:: lowewr abd pain *History of present illness: This is a 68 yo F with PMHx of CKD, type 2 diabetes mellitus, hyperlipidemia, PTSD, hypertension and major depressive disorder, patient id resident of [place]. Brought in to ED for evaluation of lower abdominal pain started this morning. patient is a poor historian, presented with flat affect, therefore history is limited. Patient is hemodynamically stable upon arrival, febrile. Physical exam is remarkable for tenderness palpation suprapubic area of the abdomen over the bladder. There is no rebound or guarding or rigidity. Had no other complains. Admitted for treatment [facility] Disclaimer: The information contained in this section may have been updated after the patient was seen, as this information can be updated by other users. Surgical History (Updated 11/19/23 @ 22:07 by Trudi Glez RN) Hx of hemorrhoidectomy Social History (Updated 11/19/23 @ 22:08 by Trudi Glez RN) Smoking Status: Current every day smoker tobacco type: cigarettes packs per day: 1 alcohol intake: never current occupational status: retired Travel in the last 8 weeks: None housing: retirement Review of Systems Review of Systems Review of systems:: pertinent systems reviewed and negative unless documented below Meds Home Medications and Allergies Home Medications Medication Instructions Recorded Confirmed Type atorvastatin 20 mg tablet (Lipitor) 20 mg PO DAILY 09/02/19 11/20/23 History furosemide 40 mg tablet 40 mg PO DAILY 09/02/19 11/20/23 History hydrochlorothiazide 12.5 mg capsule 12.5 mg PO DAILY 09/02/19 11/20/23 History metformin 750 mg tablet,extended 750 mg PO BID 09/02/19 11/20/23 History release 24 hr mirtazapine 15 mg tablet 15 mg PO HS 09/02/19 11/20/23 History prazosin 2 mg capsule 2 mg PO HS 09/02/19 11/20/23 History sertraline 100 mg tablet 200 mg PO DAILY 01/01/21 11/20/23 History ergocalciferol (vitamin D2) 1,250 1,250 mcg PO WEEKLY 11/20/23 11/20/23 History mcg (50,000 unit) capsule (Vitamin D2) haloperidol 10 mg tablet 10 mg PO TID 11/20/23 11/20/23 History melatonin 5 mg tablet 5 mg PO HS 11/20/23 11/20/23 History oxybutynin chloride 10 mg 10 mg PO DAILY 11/20/23 11/20/23 History tablet,extended release 24 hr paliperidone 6 mg tablet,extended 12 mg PO DAILY 11/20/23 11/20/23 History release 24 hr quetiapine 100 mg tablet 100 mg PO BID 11/20/23 11/20/23 History New Prescriptions to Start Prescriptions: Allergies Allergy/AdvReac Type Severity Reaction Status Date / Time latex Allergy Intermediate Rash Verified 01/01/21 11:20 Sulfa (Sulfonamide Allergy Intermediate Rash Verified 01/01/21 11:20 Antibiotics) Exam Data for Last 24 hours Vital signs and Labs for Last 24 Hours: Temp Pulse Resp BP Pulse Ox O2 Del Method 98.0 F 96 H 18 122/60 98 Room Air 11/19/23 18:11 11/19/23 18:30 11/19/23 18:11 11/19/23 18:30 11/19/23 18:30 11/19/23 18:11 Laboratory Results - last 24 hr 11/19/23 18:42: WBC 2.9 L, RBC 3.17 L, Hgb 9.1 L, Hct 28.1 L, MCV 88.6, MCH 28.8, MCHC 32.6, RDW 15.9, Plt Count 202, MPV 8.0, Neut % (Auto) 61.5, Lymph % (Auto) 27.4, [place] % (Auto) 7.7, Eos % (Auto) 2.2, Baso % (Auto) 1.1, Neut # (Aut o) 1.8, Lymph # (Auto) 0.8, [place] # (Auto) 0.2, Eos # (Auto) 0.1, Baso # (Auto) 0.0, Sodium 135 L, Potassium 4.5, Chloride 96 L, Carbon Dioxide 29, Anion Gap 14.5, BUN 40 H, Creatinine 1.80 H, Estimated Creat Clear 28, Estimated GFR 28 L, Est GFR ( Amer) 34 L, Glucose 158 H, Calcium 9.5, Total Bilirubin 0.6, AST 29, ALT 21, Alkaline Phosphatase 156 H, Troponin I < 0.01, Total Protein 7.6, Albumin 3.7, Globulin 3.9 H, Albumin/Globulin Ratio 0.9 L 11/19/23 19:00: Lactate 3.4 H 11/19/23 20:32: Urine Color Yellow, Urine Appearance Sl cloudy, Urine pH 6.0, Ur Specific [place] 1.015, Urine Protein Negative, Urine Glucose (UA) Negative, Urine Ketones Negative, Urine Blood 2+, Urine Nitrate Negative, Urine Bilirubin Negative, Urine Urobilinogen 0.2, Ur Leukocyte Esterase 3+ A, Urine RBC 5-10, Urine WBC 10-20, Ur Squamous Epith Cells 5-10, Urine Bacteria 3+ I & O for Last 24 hours: Intake & Output 11/16/23 11/17/23 11/18/23 11/19/23 23:59 23:59 23:59 23:59 Weight 58.967 kg Constitutional Constitutional: mild distress and cooperative *Routine HEENT Exam Head: Present normocephalic Eye: Present EOMI and PERRL ENT: Present mucous membranes moist *Routine Neck Exam Neck: Present supple; Absent lymphadenopathy *Routine Respiratory Exam Respiratory: Present CTA bilaterally *Routine Cardiovascular Exam Cardiovascular: Present RRR *Routine Abdominal Exam Abdominal: Present soft, normoactive bowel sounds, tenderness and guarding *Routine Rectal Exam Rectal:: deferred *Routine Genitalia Exam Genitalia:: deferred *Routine Extremities Exam Extremities: Absent cyanosis, clubbing or edema *Routine Skin Exam Skin: Present warm; Absent rash *Routine Neurological Exam Neurological: Present alert, oriented X3, normal reflexes and moving all extremities Routine Psychiatric Exam Psychiatric: Absent normal affect H&P: Result Imaging and Cardiology EKG: Status: image reviewed by me, Preliminary report and final report CT scan - abdomen: Status: Preliminary report and final report Assessment and Plan *Assessment and plan (1) Abdominal pain, lower: Status: Acute Category: Medical Code(s): R10.30 - Lower abdominal pain, unspecified (2) Lactic acidosis: Status: Acute Category: Medical Code(s): E87.20 - Acidosis, unspecified (3) Vaginal yeast infection: Status: Acute Category: Medical Code(s): B37.31 - Acute candidiasis of vulva and vagina (4) Acute nontraumatic kidney injury: Status: Acute Category: Medical Code(s): N17.9 - Acute kidney failure, unspecified (5) Diabetes mellitus type II, controlled: Status: Acute Qualifiers: Diabetes mellitus complication status: with other specified complication Diabetes mellitus custodial insulin use: unspecified press tender long goods insulin use status Qualified Code(s): E11.69 - Type 2 diabetes mellitus with other specified complication Category: Medical Code(s): E11.9 - Type 2 diabetes mellitus without complications (6) HLD (hyperlipidemia): Status: Acute Qualifiers: Hyperlipidemia type: unspecified Qualified Code(s): E78.5 - Hyperlipidemia, unspecified Category: Medical Code(s): E78.5 - Hyperlipidemia, unspecified (7) PTSD (post-traumatic stress disorder): Status: Acute Category: Medical Code(s): F43.10 - Post-traumatic stress disorder, unspecified (8) Hypertension: Status: Acute Qualifiers: Hypertension type: essential hypertension Qualified Code(s): I10 - Essential (primary) hypertension Category: Medical Code(s): I10 - Essential (primary) hypertension (9) Major depressive disorder with psychotic features: Status: Acute Category: Medical Code(s): F32.3 - Major depressive disorder, single episode, severe with psychotic features Plan 68 yo F with PMHx of CKD, type 2 diabetes mellitus, hyperlipidemia, PTSD, hypertension and major depressive disorder, patient id resident of [place]. Brought in to ED for evaluation of lower abdominal pain started this morning. suspected urinary retention. Initial intervention consistent with benson catherter palacement, bladder released. urine concern for UTI, moderate yeast infection. started on ceftriaxone and Fluconazole. labs reviewed. CBC positive for leukopenia, creatinine above the baseline. suspected KUSUM. Findings discussed with ED. agreed for admission: -KUSUM likely post renal. due to Acute urinary retention. in the course of Acute UTI secondary to vaginal yeast infection: LActic acidosis. admit patient. dispo med-surg started on Ceft and fluconazol UA culture pending BC pending pain management. monitor renal function avoid nephrotoxic medications repeat CMP in the morning. daily cBC -Diabetes mellitus: hold metformin in the course of KUSUM sliding scale accucheck before meals obtain A1c HLD, HTN: PTSD and MDD nursing to reconcile home medication Lovenox for DVT ppx, On protonix Diabetic diet Full cod e Rounded on patient after nurse practitioner. Personally examined and interviewed patient. Agree with exam findings and care plan as documented.
--- NOTE | 2023-11-19 21:22 | PC.NURSE ---
Report given to TAMMIE Brush on second floor at this time.
[2023-11-19 21:33] VITALS: BP 105/45; PULSE 72; RESP 18; TEMP 37.1; O2SAT 95
--- NOTE | 2023-11-19 21:43 | PC.NURSE ---
Patient arrived to floor via wheelchair from ED at 21:41.
[2023-11-19] MEDS: 0.9 % SODIUM CHLORIDE 1000ML 1,000 ML 75 ML IV (21:52)
[2023-11-19 22:03] VITALS: BP 105/45; PULSE 77; RESP 18; TEMP 36.7; O2SAT 99; BMI 23.6
[2023-11-19 22:06] LABS: Troponin I 0.01 ng/ml (0.00-0.034)
[2023-11-19 23:03] LABS: Reflex Lactic Add Lactic Reflex
[2023-11-19 23:11] LABS: POC Glucose,Bedside 126 (70-110)
[2023-11-19 23:32] LABS: Lactic Acid Follow Up (RFLX 1) 2.8 mmol/L (0.7-2.1)
[2023-11-20 01:14] LABS: Troponin I < 0.01 ng/ml (0.00-0.034)
[2023-11-20 01:21] LABS: Reflex Lactic (2 hrs) Add Lactic Reflex
[2023-11-20 01:52] LABS: Lactic Acid Follow up (RFLX 2) 1.6 mmol/L (0.7-2.1)
[2023-11-20 04:00] VITALS: BMI 23.8
--- NOTE | 2023-11-20 04:05 | PC.NURSE ---
Pt is alert and oriented x4 and currently tolerating RA well. Pt remains NPO, Pt has required education for reason of diet order. Pt benson remains in place and is flowing freely into drainage bag. Pt denies pain and needs.
[2023-11-20 05:51] LABS: POC Glucose,Bedside 97 (70-110)
[2023-11-20 06:36] LABS: Basophils % 0.9 % (0.1-2.0); Eosinophils # 0.1 K/mm3 (0.0-0.4); Eosinophils % 1.9 % (0.1-12.0); Hematocrit 26.3 % (37.0-47.0); Hemoglobin 8.7 g/dL (12.2-16.2); Lymphocytes # 1.3 K/mm3 (0.7-4.5); Lymphocytes % 40.2 % (10-50); Mean Corpuscular Hemoglobin 28.6 pg (27.0-31.2); Mean Corpuscular Volume 86.5 fl (81-99); Mean Platelet Volume 8.3 fl (7.4-10.4); Monocytes # 0.3 K/mm3 (0.1-1.0); Monocytes % 10.2 % (1.7-9.3); Neutrophils # 1.5 K/mm3 (1.8-7.8); Platelet Count 193 K/mm3 (142-424); Red Blood Count 3.04 M/mm3 (4.20-5.40); Red Cell Distribution Width 15.8 % (11.5-17.5); White Blood Count 3.3 K/mm3 (4.8-10.8)
[2023-11-20 06:38] LABS: Chloride 99 mmol/L (98-107); Sodium 135 mmol/L (136-145)
[2023-11-20 06:39] LABS: Potassium 4.1 mmoL/L (3.5-5.1)
[2023-11-20 06:41] LABS: Alanine Aminotransferase 10 U/L (12-78); Alkaline Phosphatase 166 U/L (38-126); Anion Gap 9.1 mEq/L (5-15); Aspartate Amino Transferase 18 U/L (14-36); Bilirubin,Total 0.3 mg/dl (0.2-1.3); Blood Urea Nitrogen 37 mg/dl (7-17); Carbon Dioxide 31 mmol/L (22.0-30.0); Creatinine Clearance Estimated 23 mL/min (50-200); Estimated Glomerular Filt Rate 25 ml/min (>60); GFR (African American) 30 ML/MIN (>60)
[2023-11-20 06:42] LABS: Albumin Level 3.3 g/dl (3.5-5.0); Calcium 9.5 mg/dl (8.4-10.2); Globulin 3.4 g/dL (1.3-3.2); Glucose 95 mg/dl (74-100); Total Protein,Serum 6.7 g/dl (6.3-8.2)
[2023-11-20 07:09] LABS: Phosphorous 3.4 mg/dl (2.5-4.5)
[2023-11-20 07:10] LABS: Magnesium 1.4 mg/dl (1.6-2.3)
--- NOTE | 2023-11-20 07:37 | HMH.PHAINT1 ---
Pharmacy Intervention Comments: MEDICATION RECONCILIATION COMPLETED ON PATIENT USING MAR FROM EXTERNAL FACILITY. -LINDA TAVAREZ, RANDELLD
[2023-11-20 08:00] VITALS: BP 120/59; PULSE 85; RESP 17; TEMP 36.6; O2SAT 95
[2023-11-20] MEDS: ENOXAPARIN 40MG/0.4ML SYRINGE 40 MG SQ (08:21)
[2023-11-20] MEDS: MORPHINE 2MG/ML SYRINGE 2 MG IV ×4 (08:22→23:35)
[2023-11-20 08:32] LABS: Hemoglobin A1C 5.6 % (4.0-6.0)
--- NOTE | 2023-11-20 10:23 | HMH.PTEV ---
Physical Therapy Evaluation Rehab PT IP Evaluation Start: 11/20/23 08:12 Freq: ONCE Status: Active Protocol: Document 11/20/23 10:18 ROSALINE (Rec: 11/20/23 10:22 ROSALINE [email or web address]) Subjective/History History History Per H&P: This is a 68 yo F with PMHx of CKD, type 2 diabetes mellitus, hyperlipidemia, PTSD , hypertension and major depressive disorder, patient id resident of [facility]. Brought in to ED for evaluation of lower abdominal pain started this morning. patient is a poor historian, presented with flat affect, therefore history is limited. Patient is hemodynamically stable upon arrival, febrile. Physical exam is remarkable for tenderness palpation suprapubic area of the abdomen over the bladder. There is no rebound or guarding or rigidity. Had no other complains. Admitted for treatment Subjective Subjective PLOF per pt report: Pt is oriented and alert. Pt reports she lived at [facility] for ~4 years. Was IND with ADLs and functional mobility without use of AD for ambulation. New diagnosis of cancer in past 12 No months? Rehab PT IP Eval Objective Appearance Patient Behavior Appropriate,Cooperative Patient Orientation Person,Situation Difficulty following instructions none Speech Pattern Clear,Soft-Spoken Ambulation Patient Able to Ambulate Yes Ambulation Observation IP General Gait Pattern Observation Narrow Based Gait Ambulation Distance (feet) 15 Ambulation Assistive Device None Ambulation Ability Supervision/Stand by,Contact Guard/Hand Hold Balance Ability to Arise Able, uses arms to help Sitting Balance Steady, safe Standing Balance Steady, wide stance Transfers Sit to Stand Bed Transfer Ability Supervision/Stand by MMT All Extremities PT MMT WFL Rehab PT IP prob,goals,plan Problems Date of Evaluation: 11/20/23 PT IP Problems Bed Mobility,Transfers,Gait, Balance,Self care,Safety Rehab Potential Rehab Potential Good Equipment Needs Assistive Devices None / NA Plan PT Intervention Plan Bed Mobility,Transfers,Gait, Balance,Safety,Therapeutic Exercise Other Intervention Plan 1-2 times PT Plan Frequency Daily Duration LOS Discharge Goals Bed Transfer Ability Supervision/Stand by Sit to Stand Chair Transfer Ability Independent Ambulation Assistive Device None Ambulation Distance (feet) 30 Discharge Plan PT Discharge Plan Initial physical therapy evaluation performed. Patient presents below baseline at this time in functional mobility, transfers, gait, and strength. Pt would benefit from skilled PT while at [facility] to prevent further functional decline and maximize safety with mobility. Pt safe to d/c back to [facility] pending no further functional decline and when deemed medicaly necessary. PT recommending home health PT services to address deficits. Eval Complexity Eval Charge Codes 33752 - Moderate Complexity PHYSICIAN CERTIFICATION: I certify the specified therapy services for Indigo Soliman are required, authorized, and reviewed every 30 days.
--- NOTE | 2023-11-20 10:42 | HMH.OTEV ---
OT Inpatient Evaluation Rehab OT IP Evaluation Start: 11/20/23 08:12 Freq: ONCE Status: Active Protocol: Document 11/20/23 10:31 MORGAN (Rec: 11/20/23 10:42 MORGAN [id number]) Rehab OT IP Assessment Subjective History This is a 68 yo F with PMHx of CKD, type 2 diabetes mellitus , hyperlipidemia, PTSD, hypertension and major depressive disorder, patient id resident of [facility]. Brought in to ED for evaluation of lower abdominal pain started this morning. patient is a poor historian, presented with flat affect, therefore history is limited. Patient is hemodynamically stable upon arrival, febrile. Physical exam is remarkable for tenderness palpation suprapubic area of the abdomen over the bladder. There is no rebound or guarding or rigidity. Had no other complains. Admitted for treatment. Resident at [facility]. Independent with ADLs and fx'l mobility prior to hospitalization. Subjective I can get up. INstructed patient on proper hand and foot placement to complete bed mobility from supine->sit @ EOB->stand pivot transfer to chair requiring Min A. Left Patietn sitting upright in chair with meal are for s/u at end of session. Objective Patient Orientation Person,Name,Age,Birthday,Year Right Upper Extremity Gross ROM WFL Left Upper Extremity Gross ROM WFL Bed Mobility bed mobility - supine/sit Assist Level Minimal x 1 (25% assist) Transfer Training Sit/Stand/Pivot Transfer Assist Level Minimal x 1 (25% assist) Chair Transfer Ability Minimal x 1 (25% assist) Chair Transfer Technique Sit to/from Ambulatory Rehab OT IP prob,goals,plan Problems Date of Evaluation: 11/20/23 OT IP Problems Bed Mobility,Transfers,Balance ,Self care,Safety Rehab Potential Rehab Potential Good Equipment Needs Assistive Devices Rolling / Wheeled Walker Plan OT intervention Plan Bed Mobility,Transfers,Balance ,Self care,Safety,Therapeutic Exercise OT Plan Frequency Daily Duration LOS Discharge Goals Bed Mobility Ability Standby Assistance Sit to Stand Chair Transfer Ability Supervision/Stand by Chair Transfer Ability Supervision/Stand by Discharge Plan OT Discharge Plan PT completed their initial evaluation after OT, Patient was able to transfers and ambulate more independently once OOB. Patient to continue skilled OT IP services while here at [facility]. Recommd patient to return home to [facility] unless medical or functional decline is noted. Eval Complexity Eval Charge Codes 96156 - Low Complexity PHYSICIAN CERTIFICATION: I certify the specified therapy services for Indigo Soliman are required, authorized, and reviewed every 30 days.
--- NOTE | 2023-11-20 11:00 | P.PN_ITS ---
Subjective *Date: 11/20/23 *Time: 17:06 Interval history: Patient stable on room air. Denies any chest pain or shortness of breath. Still complaining of some abdominal pain that is diffuse. However she is eating lunch well on exam with no complaint of nausea or discomfort. No bowel movement since admission. However she has told nursing that she has had bowel movements. Appears to have some confounding with her stories. Medical Exam Vital signs and Labs for Last 24 Hours: Vital Signs Temp Pulse Pulse Resp BP BP Pulse Ox 11/20/23 09:00 11/20/23 08:00 11/20/23 08:00 97.9 F 85 17 120/59 L 95 11/20/23 06:34 11/20/23 05:00 11/20/23 02:46 11/20/23 01:00 11/19/23 23:00 11/19/23 22:19 11/19/23 22:03 98.1 F 77 18 105/45 L 99 11/19/23 21:33 98.8 F 72 18 105/45 L 11/19/23 18:30 96 H 122/60 98 11/19/23 18:11 98.0 F 96 H 18 121/55 L 98 O2 Del Method 11/20/23 09:00 Room Air 11/20/23 08:00 Room Air 11/20/23 08:00 Room Air 11/20/23 06:34 Room Air 11/20/23 05:00 Room Air 11/20/23 02:46 Room Air 11/20/23 01:00 Room Air 11/19/23 23:00 Room Air 11/19/23 22:19 Room Air 11/19/23 22:03 Room Air 11/19/23 21:33 Room Air 11/19/23 18:30 11/19/23 18:11 Room Air Intake and Output 11/19/23 11/20/23 11/20/23 23:59 07:59 15:59 Intake Total 0 / 0 120 / 120 Output Total 750 / 750 0 / 750 Balance 0 / 0 -750 / -630 120 / -630 Intake: Intake, Oral Amount 0 / 0 120 / 120 Output: Output, Urine Amount 750 / 750 0 / 750 Other: Number of Voids 0 Weight 53.116 kg 53.615 kg Patient Weight 11/20/23 23:59 Weight 53.615 kg Laboratory Results - last 24 hr 11/19/23 18:42: WBC 2.9 L, RBC 3.17 L, Hgb 9.1 L, Hct 28.1 L, MCV 88.6, MCH 28.8, MCHC 32.6, RDW 15.9, Plt Count 202, MPV 8.0, Neut % (Auto) 61.5, Lymph % (Auto) 27.4, Sawyer % (Auto) 7.7, Eos % (Auto) 2.2, Baso % (Auto) 1.1, Neut # (Auto) 1.8, Lymph # (Auto) 0.8, Sawyer # (Auto) 0.2, Eos # (Auto) 0.1, Baso # (Auto) 0.0, Sodium 135 L, Potassium 4.5, Chloride 96 L, Carbon Dioxide 29, Anion Gap 14.5, BUN 40 H, Creatinine 1.80 H, Estimated Creat Clear 28, Estimated GFR 28 L, Est GFR ( Amer) 34 L, Glucose 158 H, Calcium 9.5, Total Bilirubin 0.6, AST 29, ALT 21, Alkaline Phosphatase 156 H, Troponin I < 0.01, Total Protein 7.6, Albumin 3.7, Globulin 3.9 H, Albumin/Globulin Ratio 0.9 L 11/19/23 19:00: Lactate 3.4 H 11/19/23 20:32: Urine Color Yellow, Urine Appearance Sl cloudy, Urine pH 6.0, Ur Specific [place] 1.015, Urine Protein Negative, Urine Glucose (UA) Negative, Urine Ketones Negative, Urine Blood 2+, Urine Nitrate Negative, Urine Bilirubin Negative, Urine Urobilinogen 0.2, Ur Leukocyte Esterase 3+ A, Urine RBC 5-10, Urine WBC 10-20, Ur Squamous Epith Cells 5-10, Urine Bacteria 3+ 11/19/23 21:36: Troponin I 0.01 11/19/23 21:50: POC Glucose 126 H 11/19/23 23:18: Lactate 2.8 H 11/20/23 00:38: Troponin I < 0.01 11/20/23 01:30: Lactate 1.6 11/20/23 05:35: WBC 3.3 L, RBC 3.04 L, Hgb 8.7 L, Hct 26.3 L, MCV 86.5, MCH 28.6, MCHC 33.0, RDW 15.8, Plt Count 193, MPV 8.3, Neut % (Auto) 47.0, Lymph % (Auto) 40.2, Sawyer % (Auto) 10.2 H, Eos % (Auto) 1.9, Baso % (Auto) 0.9, Neut # (Auto) 1.5 L, Lymph # (Auto) 1.3, Sawyer # (Auto) 0.3, Eos # (Auto) 0.1, Baso # (Auto) 0.0, Sodium 135 L, Potassium 4.1, Chloride 99, Carbon Dioxide 31 H, Anion Gap 9.1, BUN 37 H, Creatinine 2.00 H, Estimated Creat Clear 23, Estimated GFR 25 L, Est GFR ( Amer) 30 L, Glucose 95 D, POC Glucose 97, Hemoglobin A1c 5.6, Calcium 9.5, Phosphorus 3.4, Magnesium 1.4 L, Total Bilirubin 0.3, AST 18 D, ALT 10 L D, Alkaline Phosphatase 166 H, Total Protein 6.7, Albumin 3.3 L D, Globulin 3.4 H, Albumin/Globulin Ratio 1.0 L I & O for Labs for Last 24 Hours: Intake & Output 11/17/23 11/18/23 11/19/23 11/20/23 23:59 23:59 23:59 23:59 Intake Total 0 / 0 120 / 120 Output Total 750 / 750 Balance 0 / 0 -630 / -630 Weight 53.116 kg 53.615 kg Constitutional: Present no acute distress, average body habitus, chronically ill appearing and cooperative Head: Present atraumatic and normocephalic ENT: Present normal exam Respiratory: Present normal respiratory effort; Absent rhonchi, wheezes or crackles Cardiac: Present Reg Rate and Rhythm GI: Present soft, tenderness (Diffuse), rebound and normal bowel sounds; Absent distention Extremities: Present normal inspection and full ROM Skin: Present intact; Absent erythema Neuro: Present Grossly Intact, alert, awake and moves all extremities Comment:: Oriented to self Assessment and Plan *Assessment and plan (1) Abdominal pain, lower: Status: Acute Category: Medical Code(s): R10.30 - Lower abdominal pain, unspecified (2) Lactic acidosis: Status: Acute Category: Medical Code(s): E87.20 - Acidosis, unspecified (3) Vaginal yeast infection: Status: Acute Category: Medical Code(s): B37.31 - Acute candidiasis of vulva and vagina (4) Acute nontraumatic kidney injury: Status: Acute Category: Medical Code(s): N17.9 - Acute kidney failure, unspecified (5) Diabetes mellitus type II, controlled: Status: Acute Qualifiers: Diabetes mellitus complication status: with other specified complication Diabetes mellitus termite control service representative insulin use: unspecified halfway insulin use status Qualified Code(s): E11.69 - Type 2 diabetes mellitus with other specified complication Category: Medical Code(s): E11.9 - Type 2 diabetes mellitus without complications (6) HLD (hyperlipidemia): Status: Acute Qualifiers: Hyperlipidemia type: unspecified Qualified Code(s): E78.5 - Hyperlipidemia, unspecified Category: Medical Code(s): E78.5 - Hyperlipidemia, unspecified (7) PTSD (post-traumatic stress disorder): Status: Acute Category: Medical Code(s): F43.10 - Post-traumatic stress disorder, unspecified (8) Hypertension: Status: Acute Qualifiers: Hypertension type: essential hypertension Qualified Code(s): I10 - Essential (primary) hypertension Category: Medical Code(s): I10 - Essential (primary) hypertension (9) Major depressive disorder with psychotic features: Status: Acute Category: Medical Code(s): F32.3 - Major depressive disorder, single episode, severe with psychotic features Plan 68 yo F with PMHx of CKD, type 2 diabetes mellitus, hyperlipidemia, PTSD, h ypertension and major depressive disorder, patient id resident of [facility]. Brought in to ED for evaluation of lower abdominal pain started this morning. suspected urinary retention. Initial intervention with benson catherter palacement, bladder released. urine concerning for UTI, moderate yeast infection. started on ceftriaxone and Fluconazole. labs reviewed. CBC positive for leukopenia, creatinine above the baseline. suspected KUSUM. Findings discussed with ED. agreed for admission. Awaiting urine culture. Bladder training today. Continues to require inpatient management. Problems addressed as follows: -KSUUM likely post renal. due to Acute urinary retention. in the course of Acute UTI secondary to vaginal yeast infection: Continue ceftriaxone and fluconazole. Benson catheter in place. Bladder training today. Urine culture pending; blood cultures pending White cell count low at 3.3. Hemoglobin 8.7. Repeat CBC, CMP, magnesium ordered for the morning. Creatinine 2.0, BUN 37. Unclear baseline, suspect between 1.5 and 1.8 given previous labs. repeat CMP, CMP, magnesium ordered for the morning Magnesium low at 1.4. Replacing oral and IV. Continue p.o. for 100 mg twice daily to promote bowel function and replace magnesium -Diabetes mellitus: A1c 5.6. Sliding scale insulin fingersticks ACHS. HLD, HTN: Continue Lipitor 20 mg daily, holding 6 TZ in the setting of possible KUSUM. PTSD and MDD: Continue Zoloft 200 mg daily serum will 100 daily, paliperidone 12 mg daily, Remeron 15 mg nightly Haldol 10 mg 3 times a day. Monitor for sedation. May necessitate adjustment in medications. Lovenox for DVT ppx On protonix Diabetic diet Full code Therapy working with patient daily. At this time is physically stable to return back to her personal-nursing home however if Benson unable to be removed with ability to void independently, may [facility] for [facility] management.
--- NOTE | 2023-11-20 11:39 | SW/DCPLANNER ---
Addendum entered by [facility] 11/24/23 11:09: Per Gal rodas/ [facility] will [facility] this [facility] for patient. Addendum entered by [facility] 11/23/23 13:40: Patient information/order has been faxed to Gal rodas[facility]. Addendum entered by [facility] 11/23/23 13:01: I have updated Lily rodas/ [facility] that patient will return today. Addendum entered by [facility] 11/23/23 09:28: Per and PT/OT this patient is safe to return to [facility] w/ a rolling walker. Original Note: This patient currently resides at [facility]. PT/OT stated that patient could discharge back to [facility]. Dr Dubois stated that patient may benefit from placement if a benson cath is needed at time of discharge. I did speak w/ patient this AM regarding discharge plans. Patient is alert and oriented x4 and agreeable to placement at [facility] or [facility] if needed at time of discharge. I will update [facility] and fax patient information to [facility] today. Discharge date is unknown at this time.
[2023-11-20] MEDS: MAGNESIUM SULFATE IN WATER 2 GM/50 ML PIGGYBACK IV (11:53)
[2023-11-20 12:09] LABS: POC Glucose,Bedside 106 (70-110)
[2023-11-20 13:20] VITALS: BMI 23.8
[2023-11-20] MEDS: POLYETHYLENE GLYCOL 3350 17 GM PACKET PO (13:24)
[2023-11-20] MEDS: QUETIAPINE 100MG TABLET 100 MG PO ×2 (13:24→21:26)
[2023-11-20] MEDS: haloperidoL 5 MG TABLET 10 MG PO ×2 (13:24→21:26)
--- NOTE | 2023-11-20 13:27 | DIET.NUTRFU ---
changed diet to regular, A1c was 5.6 and BS since admit have been fairly controlled 97-158. Metformin on hold and insulin ordered PRN
[2023-11-20 16:00] VITALS: BP 113/58; PULSE 88; RESP 18; TEMP 36.7; O2SAT 99
[2023-11-20] MEDS: 0.9 % SODIUM CHLORIDE 1000ML 1,000 ML 75 ML IV (16:33)
[2023-11-20 16:45] LABS: POC Glucose,Bedside 131 (70-110)
--- NOTE | 2023-11-20 18:07 | PC.NURSE ---
pt alert and orientated x4, c/o pain x1 in the lower abd with relief from pain meds. benson cath in place and currently bladder training. pt has had no urge to void since starting the bladder training. clamped benson last at 1700. cb within reach no needs at this time.
[2023-11-20] MEDS: CEFTRIAXONE SODIUM 1 GM in 0.9 % SODIUM CHLORIDE 50 ML IV (18:46)
--- NOTE | 2023-11-20 19:03 | PC.NURSE ---
pt had a full bed bath and became tearful stating her legs were hurting and she is just tired . repositioned pt and treated pain per mar. pt became tearful again stating she wants to go back home to [facility]. reassured pt and and spoke in a calm manner. pt okay at this time wiht cb and personal items within reach.
[2023-11-20 19:39] VITALS: BP 133/69; PULSE 88; RESP 18; TEMP 37.1; O2SAT 96
[2023-11-20 21:11] LABS: POC Glucose,Bedside 153 (70-110)
--- NOTE | 2023-11-20 21:15 | PC.NURSE ---
Patient denies having the urge to urinate at this time. Indwelling Benson was clamped at 1700. Cloud Engagement Partner unclamped at 2100. 400mL of urine noted in the drain bag prior to unclamping the benson. 600mL of urine noted in the drain bag after unclamping. Patient laying in bed with eyes closed. Call light in reach.
[2023-11-20] MEDS: FLUCONAZOLE IN NACL,ISO-OSM 200 MG/100 ML PIGGYBACK IV (21:24)
[2023-11-20] MEDS: SENNOSIDES 8.6MG/DOCUSATE 50MG TABLET 1 TAB PO (21:25)
[2023-11-20] MEDS: ACETAMINOPHEN 325MG TAB 650 MG PO (21:25)
[2023-11-20] MEDS: PRAZOSIN 1MG CAP 2 MG PO (21:25)
[2023-11-20] MEDS: MELATONIN 5MG TABLET 5 MG PO (21:26)
[2023-11-20] MEDS: OXYBUTYNIN 5MG TAB 5 MG PO (21:26)
[2023-11-20] MEDS: MIRTAZAPINE 15 MG TABLET PO (21:46)
[2023-11-20] MEDS: PANTOPRAZOLE 40MG TABLET 40 MG PO (21:46)
--- NOTE | 2023-11-20 23:00 | PC.NURSE ---
Patient resting with eyes closed in bed. Cabinet Professional clamped benson at 2300. 600mL of urine noted in benson drainage bag. Urine is clear, yellow with no foul order noted. Call light in reach with bed in lowest position.
[2023-11-20] MEDS: MAGNESIUM OXIDE 400MG TABLET 400 MG PO (23:28)
[2023-11-20 23:52] VITALS: BP 133/73; PULSE 87; RESP 16; TEMP 37.1; O2SAT 94
[2023-11-21] MEDS: MORPHINE 2MG/ML SYRINGE 2 MG IV (03:47)
--- NOTE | 2023-11-21 03:50 | PC.NURSE ---
Shelf Filler reassessed patient in r/t bladder training. Patient denies the urge to urinate. Shelf Filler palpated abdomen, no discomfort noted. Shelf Filler unclamped Pool as ordered. Total output from 23:00 thru 03:55 is 200mL. Total output in Pool drainage bag thus far in shift is 800mL. Urine is clear yellow with no foul odor. Shelf Filler clamped Pool at 04:15. Will continue to monitor. Call light in reach.
[2023-11-21 04:00] VITALS: BP 105/55; PULSE 87; RESP 17; TEMP 36.8; O2SAT 97; BMI 25.1
[2023-11-21 06:43] LABS: POC Glucose,Bedside 118 (70-110)
[2023-11-21 07:14] LABS: Basophils % 0.6 % (0.1-2.0); Hematocrit 24.6 % (37.0-47.0); Hemoglobin 8.1 g/dL (12.2-16.2); Lymphocytes # 1.3 K/mm3 (0.7-4.5); Lymphocytes % 31.8 % (10-50); Mean Corpuscular HGB Conc 32.7 g/dL (31.8-35.4); Mean Corpuscular Hemoglobin 28.4 pg (27.0-31.2); Mean Corpuscular Volume 86.7 fl (81-99); Mean Platelet Volume 8.3 fl (7.4-10.4); Monocytes # 0.3 K/mm3 (0.1-1.0); Monocytes % 8.2 % (1.7-9.3); Neutrophils # 2.3 K/mm3 (1.8-7.8); Neutrophils % 58.5 % (37.0-80.0); Platelet Count 195 K/mm3 (142-424); Red Blood Count 2.84 M/mm3 (4.20-5.40); Red Cell Distribution Width 15.7 % (11.5-17.5); White Blood Count 3.9 K/mm3 (4.8-10.8)
[2023-11-21 07:19] LABS: Chloride 101 mmol/L (98-107); Potassium 4.1 mmoL/L (3.5-5.1); Sodium 132 mmol/L (136-145)
[2023-11-21 07:22] LABS: Alanine Aminotransferase 8 U/L (12-78); Albumin/Globulin Ratio 0.9 (1.1-1.8); Alkaline Phosphatase 166 U/L (38-126); Anion Gap 8.1 mEq/L (5-15); Aspartate Amino Transferase 16 U/L (14-36); Bilirubin,Total 0.3 mg/dl (0.2-1.3); Blood Urea Nitrogen 34 mg/dl (7-17); Calcium 9.3 mg/dl (8.4-10.2); Carbon Dioxide 27 mmol/L (22.0-30.0); Creatinine Clearance Estimated 27 mL/min (50-200); Estimated Glomerular Filt Rate 28 ml/min (>60); GFR (African American) 34 ML/MIN (>60); Globulin 3.2 g/dL (1.3-3.2); Glucose 116 mg/dl (74-100); Total Protein,Serum 6.2 g/dl (6.3-8.2)
[2023-11-21 07:23] VITALS: BP 119/63; PULSE 78; RESP 18; TEMP 36.7; O2SAT 97
[2023-11-21 07:23] LABS: Magnesium 2.2 mg/dl (1.6-2.3)
[2023-11-21] MEDS: haloperidoL 5 MG TABLET 10 MG PO (09:01)
[2023-11-21] MEDS: ENOXAPARIN 30MG/0.3ML SYRINGE 30 MG SQ (09:01)
[2023-11-21] MEDS: OXYBUTYNIN 5MG TAB 5 MG PO ×2 (09:01→20:58)
[2023-11-21] MEDS: POLYETHYLENE GLYCOL 3350 17 GM PACKET PO (09:01)
[2023-11-21] MEDS: SERTRALINE 100MG TABLET 200 MG PO (09:01)
[2023-11-21] MEDS: SENNOSIDES 8.6MG/DOCUSATE 50MG TABLET 1 TAB PO ×2 (09:01→20:59)
[2023-11-21] MEDS: QUETIAPINE 100MG TABLET 100 MG PO ×2 (09:01→20:58)
[2023-11-21] MEDS: MAGNESIUM OXIDE 400MG TABLET 400 MG PO ×2 (09:01→20:58)
[2023-11-21 11:06] LABS: POC Glucose,Bedside 115 (70-110)
--- NOTE | 2023-11-21 11:31 | EXP.ACUTE.PN ---
Subjective *Date: 11/21/23 *Time: 12:13 Interval history: Patient continues to complain of abdominal pain but appears somewhat sedated this morning. Fell asleep during exam. Denies nausea or vomiting. No shortness of breath. Stable on room air. Did not eat breakfast due to fatigue. Still has Benson in place, will discontinue today and monitor for independent voiding. Afebrile and hemodynamically stable Medical Exam Vital signs and Labs for Last 24 Hours: Vital Signs Temp Pulse Resp BP Pulse Ox O2 Del Method 11/21/23 10:57 Room Air 11/21/23 09:00 Room Air 11/21/23 08:00 Room Air 11/21/23 07:23 98.1 F 78 18 119/63 97 Room Air 11/21/23 06:49 Room Air 11/21/23 05:00 Room Air 11/21/23 04:00 98.3 F 87 17 105/55 L 97 Room Air 11/21/23 03:00 Room Air 11/21/23 01:00 Room Air 11/20/23 23:52 98.7 F 87 16 133/73 94 L Room Air 11/20/23 23:00 Room Air 11/20/23 21:00 Room Air 11/20/23 20:00 Room Air 11/20/23 19:39 98.7 F 88 18 133/69 96 Room Air 11/20/23 18:07 Room Air 11/20/23 17:00 Room Air 11/20/23 16:00 98.1 F 88 18 113/58 L 99 Room Air 11/20/23 15:00 Room Air 11/20/23 13:00 Room Air Intake and Output 11/20/23 11/21/23 11/21/23 23:59 07:59 15:59 Intake Total 330 / 330 Output Total 0 / 750 1600 / 1900 300 / 1900 Balance 0 / -240 -1270 / -1570 -300 / -1570 Intake: Intake, Oral Amount 330 / 330 Output: Output, Urine Amount 0 / 750 800 / 1100 300 / 1100 Output, Urine Amount (Catheter) 800 / 800 Benson 800 / 800 Other: Number of Voids 0 Number of Unmeasured Voids 0 0 Weight 56.518 kg Patient Weight 11/21/23 23:59 Weight 56.518 kg Laboratory Results - last 24 hr 11/20/23 11:51: POC Glucose 106 11/20/23 16:37: POC Glucose 131 H 11/20/23 20:59: POC Glucose 153 H 11/21/23 06:25: WBC 3.9 L, RBC 2.84 L, Hgb 8.1 L, Hct 24.6 L, MCV 86.7, MCH 28.4, MCHC 32.7, RDW 15.7, Plt Count 195, MPV 8.3, Neut % (Auto) 58.5, Lymph % (Auto) 31.8, [place] % (Auto) 8.2, Eos % (Auto) 1.0, Baso % (Auto) 0.6, Neut # (Auto) 2.3, Lymph # (Auto) 1.3, [place] # (Auto) 0.3, Eos # (Auto) 0.0, Baso # (Auto) 0.0, Sodium 132 L, Potassium 4.1, Chloride 101, Carbon Dioxide 27, Anion Gap 8.1, BUN 34 H, Creatinine 1.80 H, Estimated Creat Clear 27, Estimated GFR 28 L, Est GFR ( Amer) 34 L, Glucose 116 H, Calcium 9.3, Magnesium 2.2 D, Total Bilirubin 0.3, AST 16, ALT 8 L, Alkaline Phosphatase 166 H, Total Protein 6.2 L, Albumin 3.0 L, Globulin 3.2, Albumin/Globulin Ratio 0.9 L 11/21/23 06:34: POC Glucose 118 H 11/21/23 10:56: POC Glucose 115 H I & O for Labs for Last 24 Hours: Intake & Output 11/18/23 11/19/23 11/20/23 11/21/23 23:59 23:59 23:59 23:59 Intake Total 0 / 0 390 / 510 330 / 330 Output Total 750 / 750 1900 / 1900 Balance 0 / 0 -360 / -240 -1570 / -1570 Weight 53.116 kg 53.61 kg 56.518 kg Constitutional: Present no acute distress, average body habitus, chronically ill appearing and cooperative Comment:: Fatigue, falls asleep easily on exam but will awaken and answer questions Head: Present atraumatic and normocephalic ENT: Present normal exam Respiratory: Present normal respiratory effort; Absent rhonchi, wheezes or crackles Cardiac: Present Reg Rate and Rhythm GI: Present soft, tenderness (Diffuse, nonfocal, interval improvement from yesterday), rebound and normal bowel sounds; Absent distention Extremities: Present normal inspection and full ROM Skin: Present intact; Absent erythema Neuro: Present Grossly Intact, alert, awake and moves all extremities Comment:: Oriented to self Assessment and Plan *Assessment and plan (1) Abdominal pain, lower: Status: Acute Category: Medical Code(s): R10.30 - Lower abdominal pain, unspecified (2) Lactic acidosis: Status: Acute Category: Medical Code(s): E87.20 - Acidosis, unspecified (3) Vaginal yeast infection: Status: Acute Category: Medical Code(s): B37.31 - Acute candidiasis of vulva and vagina (4) Acute nontraumatic kidney injury: Status: Acute Category: Medical Code(s): N17.9 - Acute kidney failure, unspecified (5) Diabetes mellitus type II, controlled: Status: Acute Qualifiers: Diabetes mellitus complication status: with other specified complication Diabetes mellitus [facility] insulin use: unspecified [facility] insulin use status Qualified Code(s): E11.69 - Type 2 diabetes mellitus with other specified complication Category: Medical Code(s): E11.9 - Type 2 diabetes mellitus without complications (6) HLD (hyperlipidemia): Status: Acute Qualifiers: Hyperlipidemia type: unspecified Qualified Code(s): E78.5 - Hyperlipidemia, unspecified Category: Medical Code(s): E78.5 - Hyperlipidemia, unspecified (7) PTSD (post-traumatic stress disorder): Status: Acute Category: Medical Code(s): F43.10 - Post-traumatic stress disorder, unspecified (8) Hypertension: Status: Acute Qualifiers: Hypertension type: essential hypertension Qualified Code(s): I10 - Essential (primary) hypertension Category: Medical Code(s): I10 - Essential (primary) hypertension (9) Major depressive disorder with psychotic features: Status: Acute Category: Medical Code(s): F32.3 - Major depressive disorder, single episode, severe with psychotic features Plan 68 yo F with PMHx of CKD, type 2 diabetes mellitus, hyperlipidemia, PTSD, hypertension and major depressive disorder, patient id resident of [place]. Brought in to ED for evaluation of lower abdominal pain started this morning. suspected urinary retention. Initial intervention with benson catherter palacement, bladder released. urine concerning for UTI, moderate yeast infection. started on ceftriaxone and Fluconazole. labs reviewed. CBC positive for leukopenia, creatinine above the baseline. suspected KUSUM. Findings discussed with ED. agreed for admission. Awaiting urine culture. Benson to be removed today. Continue to monitor for 24 more hours. Patient appears oversedated, decreasing medications today. Problems addressed as follows: -KUSUM likely post renal. due to Acute urinary retention. in the course of Acute UTI secondary to vaginal yeast infection: Continue ceftriaxone and fluconazole. Benson catheter in place. Benson catheter removed today Urine culture pending; blood cultures pending White cell count low at 3.9. Hemoglobin 8.1. Repeat CBC, CMP, magnesium ordered for the morning. Creatinine 1.8, BUN 34. Appears to be at baseline. repeat CMP, CMP, magnesium ordered for the morning Magnesium 2.2, potassium 4.1. No replacement today Diabetes mellitus: A1c 5.6. Sliding scale insulin fingersticks ACHS. Discontinue metformin at discharge to decrease pill burden. Diabetes well-controlled HLD, HTN: Continue Lipitor 20 mg daily, holding HCTZ in the setting of possible KUSUM. PTSD and MDD: Continue Zoloft 200 mg daily, quetiapine 100 mg nightly decreased from twice daily due to sedation. Continue paliperidone 12 mg daily, Remeron 15 mg nightly. Decrease Haldol to 5 mg 3 times a day. Patient more fatigued today and appears oversedated. Lovenox for DVT ppx On protonix Diabetic diet Full code Therapy working with patient daily. At this time is physically stable to return back to her personal[facility] living however if Benson unable to be removed with ability to void independently, may necessitate placement at retirement for further management.
[2023-11-21] MEDS: PALIPERIDONE 6 MG 2 EACH PO (11:38)
[2023-11-21] MEDS: ACETAMINOPHEN 325MG TAB 650 MG PO (11:40)
[2023-11-21 12:00] VITALS: BP 152/62; PULSE 80; RESP 16; TEMP 36.8; O2SAT 96
[2023-11-21] MEDS: haloperidoL 5 MG TABLET PO ×2 (13:09→20:58)
[2023-11-21 16:00] VITALS: BP 121/65; PULSE 75; RESP 18; TEMP 36.5; O2SAT 94
[2023-11-21 17:26] LABS: POC Glucose,Bedside 113 (70-110)
--- NOTE | 2023-11-21 18:51 | PC.NURSE ---
pt was able to void 200mls after she was told that she would have to have another benson. Sherly stated not to place benson
[2023-11-21] MEDS: CEFTRIAXONE SODIUM 1 GM in 0.9 % SODIUM CHLORIDE 50 ML IV (19:45)
[2023-11-21 19:54] VITALS: BP 146/74; PULSE 85; RESP 16; TEMP 36.4; O2SAT 97
[2023-11-21] MEDS: PRAZOSIN 1MG CAP 2 MG PO (20:57)
[2023-11-21] MEDS: FLUCONAZOLE IN NACL,ISO-OSM 200 MG/100 ML PIGGYBACK IV (20:57)
[2023-11-21] MEDS: MIRTAZAPINE 15 MG TABLET PO (20:58)
[2023-11-21] MEDS: MELATONIN 5MG TABLET 5 MG PO (20:58)
[2023-11-21] MEDS: PANTOPRAZOLE 40MG TABLET 40 MG PO (20:58)
[2023-11-21] MEDS: humaLOG 100 UNITS/ML 3ML VIAL (SSI) SQ (20:59)
[2023-11-22] VITALS: BP 133/62; PULSE 88; RESP 16; TEMP 37; O2SAT 93
[2023-11-22 04:00] VITALS: BP 131/55; PULSE 103; RESP 16; TEMP 36.5; O2SAT 95; BMI 25.2
[2023-11-22] MEDS: ACETAMINOPHEN 325MG TAB 650 MG PO (04:05)
--- NOTE | 2023-11-22 05:23 | PC.NURSE ---
Pt is alert and oriented. Complained of leg pain one, treated per sep. ACHS FS. Bed alarm on. 2 assist to bedside commode with urine output. No other complaints. Mild edema noted to BLE. Call light in reach.
[2023-11-22 07:19] VITALS: BP 137/67; PULSE 102; RESP 18; TEMP 37.1; O2SAT 96
--- NOTE | 2023-11-22 07:44 | P.DS_ITS ---
General Admission date:: 11/19/23 Discharge date: 11/22/23 HPI HPI HPI: This is a 68 yo F with PMHx of CKD, type 2 diabetes mellitus, hyperlipidemia, PTSD, hypertension and major depressive disorder, patient id resident of [place]. Brought in to ED for evaluation of lower abdominal pain started this morning. patient is a poor historian, presented with flat affect, therefore history is limited. Patient is hemodynamically stable upon arrival, febrile. Physical exam is remarkable for tenderness palpation suprapubic area of the abdomen over the bladder. There is no rebound or guarding or rigidity. Had no other complains. Admitted for treatment Hospital Course Hospital Course Hospital Course: 68 yo F with PMHx of CKD, type 2 diabetes mellitus, hyperlipidemia, PTSD, hypertension and major depressive disorder, patient id resident of [place]. Brought in to ED for evaluation of lower abdominal pain started this morning. suspected urinary retention. Initial intervention with benson catherter palacement, bladder released. urine concerning for UTI, moderate yeast infection. started on ceftriaxone and Fluconazole. labs reviewed. CBC positive for leukopenia, creatinine above the baseline. suspected KUSUM. Findings discussed with ED. agreed for admission. Awaiting urine culture. Benson to be removed today. Continue to monitor for 24 more hours. Patient appears oversedated, decreasing medications today. Problems addressed as follows: -KUSUM likely post renal. due to Acute urinary retention. in the course of Acute UTI secondary to vaginal yeast infection: Continue ceftriaxone and fluconazole. Benson catheter in place. Benson catheter removed today Urine culture pending; blood cultures pending White cell count low at 3.9. Hemoglobin 8.1. Repeat CBC, CMP, magnesium ordered for the morning. Creatinine 1.8, BUN 34. Appears to be at baseline. repeat CMP, CMP, magnesium ordered for the morning Magnesium 2.2, potassium 4.1. No replacement today Diabetes mellitus: A1c 5.6. Sliding scale insulin fingersticks ACHS. Discontinue metformin at discharge to decrease pill burden. Diabetes well-controlled HLD, HTN: Continue Lipitor 20 mg daily, holding HCTZ in the setting of possible KUSUM. PTSD and MDD: Continue Zoloft 200 mg daily, quetiapine 100 mg nightly decreased from twice daily due to sedation. Continue paliperidone 12 mg daily, Remeron 15 mg nightly. Decrease Haldol to 5 mg 3 times a day. Patient more fatigued today and appears oversedated. Lovenox for DVT ppx On protonix Exam Data for Last 24 hours Vital signs and Labs for Last 24 Hours: Temp Pulse Resp BP Pulse Ox O2 Del Method 98.7 F 102 H 18 137/67 96 Room Air 11/22/23 07:19 11/22/23 07:19 11/22/23 07:19 11/22/23 07:19 11/22/23 07:19 11/22/23 07:19 Laboratory Results - last 24 hr 11/21/23 10:56: POC Glucose 115 H 11/21/23 16:04: POC Glucose 113 H I & O for Last 24 hours: Intake & Output 11/19/23 11/20/23 11/21/23 11/22/23 23:59 23:59 23:59 23:59 Intake Total 0 / 0 390 / 510 1260 / 1260 Output Total 750 / 750 2100 / 2350 800 / 800 Balance 0 / 0 -360 / -240 -840 / -1090 -800 / -800 Weight 53.116 kg 53.61 kg 56.518 kg 56.654 kg Results Data Completed and Pending Labs on day of discharge: Labs from last 24 hours 11/21/23 11/21/23 16:04 10:56 POC Glucose 113 H 115 H DS: Diagnosis Discharge Diagnosis (1) Abdominal pain, lower: Status: Acute Code(s): R10.30 - Lower abdominal pain, unspecified (2) Lactic acidosis: Status: Acute Code(s): E87.20 - Acidosis, unspecified (3) Vaginal yeast infection: Status: Acute Code(s): B37.31 - Acute candidiasis of vulva and vagina (4) Acute nontraumatic kidney injury: Status: Acute Code(s): N17.9 - Acute kidney failure, unspecified (5) Diabetes mellitus type II, controlled: Status: Acute Code(s): E11.9 - Type 2 diabetes mellitus without complications Qualifiers: Diabetes mellitus complication status: with other specified complication Diabetes mellitus shelter insulin use: unspecified shelter insulin use status Qualified Code(s): E11.69 - Type 2 diabetes mellitus with other specified complication (6) HLD (hyperlipidemia): Status: Acute Code(s): E78.5 - Hyperlipidemia, unspecified Qualifiers: Hyperlipidemia type: unspecified Qualified Code(s): E78.5 - Hyperlipidemia, unspecified (7) PTSD (post-traumatic stress disorder): Status: Acute Code(s): F43.10 - Post-traumatic stress disorder, unspecified (8) Hypertension: Status: Acute Code(s): I10 - Essential (primary) hypertension Qualifiers: Hypertension type: essential hypertension Qualified Code(s): I10 - Essential (primary) hypertension (9) Major depressive disorder with psychotic features: Status: Acute Code(s): F32.3 - Major depressive disorder, single episode, severe with psychotic features Meds Home Medications and Allergies Home Medications Medication Instructions Recorded Confirmed Type atorvastatin 20 mg tablet (Lipitor) 20 mg PO DAILY 09/02/19 11/20/23 History furosemide 40 mg tablet 40 mg PO DAILY 09/02/19 11/20/23 History hydrochlorothiazide 12.5 mg capsule 12.5 mg PO DAILY 09/02/19 11/20/23 History mirtazapine 15 mg tablet 15 mg PO HS 09/02/19 11/20/23 History prazosin 2 mg capsule 2 mg PO HS 09/02/19 11/20/23 History sertraline 100 mg tablet 200 mg PO DAILY 01/01/21 11/20/23 History ergocalciferol (vitamin D2) 1,250 1,250 mcg PO WEEKLY 11/20/23 11/20/23 History mcg (50,000 unit) capsule (Vitamin D2) melatonin 5 mg tablet 5 mg PO HS 11/20/23 11/20/23 History oxybutynin chloride 10 mg 10 mg PO DAILY 11/20/23 11/20/23 History tablet,extended release 24 hr paliperidone 6 mg tablet,extended 12 mg PO DAILY 11/20/23 11/20/23 History release 24 hr haloperidol 5 mg tablet 5 mg PO TID 30 days #90 tabs 11/21/23 Rx quetiapine 100 mg tablet 100 mg PO HS 30 days #0 tabs 11/21/23 11/20/23 Rx New Prescriptions to Start Prescriptions: Lee Landrum Allergies Allergy/AdvReac Type Severity Reaction Status Date / Time latex Allergy Intermediate Rash Verified 01/01/21 11:20 Sulfa (Sulfonamide Allergy Intermediate Rash Verified 01/01/21 11:20 Antibiotics) Discharge Plan Disposition Patient Disposition: Home, Self-Care Condition: Fair Follow up Plan Prescriptions/Medication Reconciliation: New haloperidol 5 mg Tablet 5 mg PO TID 30 Days Qty: 90 0RF Continued sertraline 100 mg tablet 200 mg PO DAILY atorvastatin [Lipitor] 20 mg tablet 20 mg PO DAILY mirtazapine 15 mg tablet 15 mg PO HS prazosin 2 mg capsule 2 mg PO HS oxybutynin chloride 10 mg tablet extended release 24hr 10 mg PO DAILY paliperidone 6 mg tablet extended release 24hr 12 mg PO DAILY melatonin 5 mg tablet 5 mg PO HS ergocalciferol (vitamin D2) [Vitamin D2] 1,250 mcg (50,000 unit) capsule 1,250 mcg PO WEEKLY Changed quetiapine 100 mg tablet 100 mg PO HS 30 Days Qty: 0 0RF Discontinued metformin 750 mg tablet extended release 24 hr 750 mg PO BID haloperidol 10 mg tablet 10 mg PO TID No Action furosemide 40 mg tablet 40 mg PO DAILY hydrochlorothiazide 12.5 mg capsule 12.5 mg PO DAILY Problem Reconciliation Problems Reviewed?: Yes Patient Discharge Instructions ACTIVITY: Continue current activity DIET: continue same diet Patient Instructions: DI for Urinary Tract Infection (UTI), DI for Abdominal Pain-Adult, Catheter-associated Urinary Tract Infection, DI for Acute Kidney Injury Providers Primary Care Provider: Provider,Referral Admit Provider: Lee Dubois Attending Provider: Lee Dubois
[2023-11-22 08:00] LABS: Basophils % 0.4 % (0.1-2.0); Eosinophils % 0.7 % (0.1-12.0); Hematocrit 25.6 % (37.0-47.0); Hemoglobin 8.4 g/dL (12.2-16.2); Lymphocytes # 1.2 K/mm3 (0.7-4.5); Lymphocytes % 24.6 % (10-50); Mean Corpuscular Hemoglobin 28.3 pg (27.0-31.2); Mean Platelet Volume 8.5 fl (7.4-10.4); Monocytes # 0.3 K/mm3 (0.1-1.0); Monocytes % 5.6 % (1.7-9.3); Neutrophils # 3.4 K/mm3 (1.8-7.8); Neutrophils % 68.8 % (37.0-80.0); Platelet Count 215 K/mm3 (142-424); Red Blood Count 2.98 M/mm3 (4.20-5.40); Red Cell Distribution Width 15.8 % (11.5-17.5); White Blood Count 4.9 K/mm3 (4.8-10.8)
[2023-11-22 08:07] LABS: Chloride 102 mmol/L (98-107)
[2023-11-22 08:08] LABS: Potassium 4.9 mmoL/L (3.5-5.1); Sodium 134 mmol/L (136-145)
[2023-11-22 08:10] LABS: Alanine Aminotransferase 9 U/L (12-78); Alkaline Phosphatase 181 U/L (38-126); Anion Gap 9.9 mEq/L (5-15); Aspartate Amino Transferase 18 U/L (14-36); Bilirubin,Total 0.2 mg/dl (0.2-1.3); Blood Urea Nitrogen 31 mg/dl (7-17); Carbon Dioxide 27 mmol/L (22.0-30.0); Creatinine Clearance Estimated 27 mL/min (50-200); Estimated Glomerular Filt Rate 28 ml/min (>60); GFR (African American) 34 ML/MIN (>60)
[2023-11-22 08:11] LABS: Albumin Level 3.1 g/dl (3.5-5.0); Albumin/Globulin Ratio 0.9 (1.1-1.8); Calcium 9.5 mg/dl (8.4-10.2); Globulin 3.6 g/dL (1.3-3.2); Glucose 110 mg/dl (74-100); Total Protein,Serum 6.7 g/dl (6.3-8.2)
[2023-11-22 08:16] LABS: Magnesium 2.2 mg/dl (1.6-2.3)
[2023-11-22] MEDS: OXYBUTYNIN 5MG TAB 5 MG PO ×2 (08:34→21:31)
[2023-11-22] MEDS: haloperidoL 5 MG TABLET PO ×3 (08:34→21:31)
[2023-11-22] MEDS: MAGNESIUM OXIDE 400MG TABLET 400 MG PO (08:34)
[2023-11-22] MEDS: POLYETHYLENE GLYCOL 3350 17 GM PACKET PO (08:34)
[2023-11-22] MEDS: SENNOSIDES 8.6MG/DOCUSATE 50MG TABLET 1 TAB PO ×2 (08:34→21:31)
[2023-11-22] MEDS: PALIPERIDONE 6 MG 2 EACH PO (08:34)
[2023-11-22] MEDS: ENOXAPARIN 30MG/0.3ML SYRINGE 30 MG SQ (08:34)
[2023-11-22] MEDS: SERTRALINE 100MG TABLET 200 MG PO (08:35)
--- NOTE | 2023-11-22 09:53 | EXP.PHA.PN ---
Subjective *Date: 11/22/23 *Time: 09:53 Medical Exam Vital signs and Labs for Last 24 Hours: Vital Signs Temp Pulse Resp BP Pulse Ox O2 Del Method 11/22/23 07:19 98.7 F 102 H 18 137/67 96 Room Air 11/22/23 06:52 Room Air 11/22/23 05:00 Room Air 11/22/23 04:00 97.7 F 103 H 16 131/55 L 95 Room Air 11/22/23 02:55 Room Air 11/22/23 01:00 Room Air 11/22/23 00:00 98.6 F 88 16 133/62 93 L Room Air 11/21/23 23:00 Room Air 11/21/23 21:00 Room Air 11/21/23 20:00 Room Air 11/21/23 19:54 97.6 F 85 16 146/74 H 97 Room Air 11/21/23 18:33 Room Air 11/21/23 17:00 Room Air 11/21/23 16:00 97.7 F 75 18 121/65 94 L Room Air 11/21/23 15:00 Room Air 11/21/23 13:00 Room Air 11/21/23 12:00 98.2 F 80 16 152/62 H 96 Room Air 11/21/23 10:57 Room Air Intake and Output 11/21/23 11/22/23 11/22/23 23:59 07:59 15:59 Intake Total 660 / 1260 270 / 270 Output Total 200 / 2350 800 / 800 Balance 460 / -1090 -800 / -530 270 / -530 Intake: Intake, Oral Amount 510 / 1110 270 / 270 Intake, Total IV Amount 150 / 150 Ceftriaxone Sodium 1 gm In 0.9 50 / 50 % Sodium Chloride 50 ml @ 100 mls/hr IV Q24H [facility] Rx#:[id number] Fluconazole in NaCl,Iso-Osm 200 100 / 100 mg In 100 ml @ 200 mls/hr IV Q24H [facility] Rx#:[id number] Output: Output, Urine Amount 200 / 1550 800 / 800 Other: Number of Unmeasured Voids 0 Weight 56.654 kg Patient Weight 11/22/23 23:59 Weight 56.654 kg Laboratory Results - last 24 hr 11/21/23 10:56: POC Glucose 115 H 11/21/23 16:04: POC Glucose 113 H 11/22/23 07:00: WBC 4.9 D, RBC 2.98 L, Hgb 8.4 L, Hct 25.6 L, MCV 86.0, MCH 28.3, MCHC 33.0, RDW 15.8, Plt Count 215, MPV 8.5, Neut % (Auto) 68.8, Lymph % (Auto) 24.6, [place] % (Auto) 5.6, Eos % (Auto) 0.7, Baso % (Auto) 0.4, Neut # (Auto) 3.4, Lymph # (Auto) 1.2, [place] # (Auto) 0.3, Eos # (Auto) 0.0, Baso # (Auto) 0.0, Sodium 134 L, Potassium 4.9, Chloride 102, Carbon Dioxide 27, Anion Gap 9.9, BUN 31 H, Creatinine 1.80 H, Estimated Creat Clear 27, Estimated GFR 28 L, Est GFR ( Amer) 34 L, Glucose 110 H, Calcium 9.5, Magnesium 2.2, Total Bilirubin 0.2, AST 18, ALT 9 L, Alkaline Phosphatase 181 H, Total Protein 6.7, Albumin 3.1 L, Globulin 3.6 H, Albumin/Globulin Ratio 0.9 L I & O for Labs for Last 24 Hours: Intake & Output 11/19/23 11/20/23 11/21/23 11/22/23 23:59 23:59 23:59 23:59 Intake Total 0 / 0 390 / 510 1260 / 1260 270 / 270 Output Total 750 / 750 2100 / 2350 800 / 800 Balance 0 / 0 -360 / -240 -840 / -1090 -530 / -530 Weight 53.116 kg 53.61 kg 56.518 kg 56.654 kg The patient's infection will respond to the chosen ABx?: Yes Is the patient receiving the right drug, dose, and route?: Yes Could a more targeted ABx be ordered?: No (URINE PENDING, WBC WNL.)
[2023-11-22] MEDS: MINERAL OIL ENEMA 133ML 133 ML RC (10:59)
[2023-11-22] MEDS: FUROSEMIDE 40MG/4ML VIAL 40 MG IV (10:59)
[2023-11-22 11:39] VITALS: BP 150/56; PULSE 84; RESP 18; TEMP 36.9; O2SAT 99
[2023-11-22 11:49] LABS: POC Glucose,Bedside 119 (70-110)
--- NOTE | 2023-11-22 13:53 | P.PN_ITS ---
Subjective *Date: 11/22/23 *Time: 13:53 Interval history: Complaining of leg pain today. Belly pain better. Quite weak however. Necessitating 2 nurses to get her up to the bathroom. Not safe to discharge back to her personal-long-term at this time. Therapy to evaluate again in the morning. Tolerating 50% of her trays. No nausea or vomiting. Still has not had a bowel movement. Medical Exam Vital signs and Labs for Last 24 Hours: Vital Signs Temp Pulse Resp BP Pulse Ox O2 Del Method 11/22/23 13:00 Room Air 11/22/23 11:39 98.4 F 84 18 150/56 H 99 Room Air 11/22/23 11:00 Room Air 11/22/23 09:00 Room Air 11/22/23 08:00 Room Air 11/22/23 07:19 98.7 F 102 H 18 137/67 96 Room Air 11/22/23 06:52 Room Air 11/22/23 05:00 Room Air 11/22/23 04:00 97.7 F 103 H 16 131/55 L 95 Room Air 11/22/23 02:55 Room Air 11/22/23 01:00 Room Air 11/22/23 00:00 98.6 F 88 16 133/62 93 L Room Air 11/21/23 23:00 Room Air 11/21/23 21:00 Room Air 11/21/23 20:00 Room Air 11/21/23 19:54 97.6 F 85 16 146/74 H 97 Room Air 11/21/23 18:33 Room Air 11/21/23 17:00 Room Air 11/21/23 16:00 97.7 F 75 18 121/65 94 L Room Air 11/21/23 15:00 Room Air Intake and Output 11/21/23 11/22/23 11/22/23 23:59 07:59 15:59 Intake Total 660 / 1260 270 / 270 Output Total 200 / 2350 800 / 800 0 / 800 Balance 460 / -1090 -800 / -530 270 / -530 Intake: Intake, Oral Amount 510 / 1110 270 / 270 Intake, Total IV Amount 150 / 150 Ceftriaxone Sodium 1 gm In 0.9 50 / 50 % Sodium Chloride 50 ml @ 100 mls/hr IV Q24H [facility] Rx#:[id number] Fluconazole in NaCl,Iso-Osm 200 100 / 100 mg In 100 ml @ 200 mls/hr IV Q24H [facility] Rx#:[id number] Output: Output, Urine Amount 200 / 1550 800 / 800 0 / 800 Other: Number of Unmeasured Voids 0 1 Weight 56.654 kg Patient Weight 11/22/23 23:59 Weight 56.654 kg Laboratory Results - last 24 hr 11/21/23 16:04: POC Glucose 113 H 11/22/23 07:00: WBC 4.9 D, RBC 2.98 L, Hgb 8.4 L, Hct 25.6 L, MCV 86.0, MCH 28 .3, MCHC 33.0, RDW 15.8, Plt Count 215, MPV 8.5, Neut % (Auto) 68.8, Lymph % (Auto) 24.6, [place] % (Auto) 5.6, Eos % (Auto) 0.7, Baso % (Auto) 0.4, Neut # (Auto) 3.4, Lymph # (Auto) 1.2, [place] # (Auto) 0.3, Eos # (Auto) 0.0, Baso # (Auto) 0.0, Sodium 134 L, Potassium 4.9, Chloride 102, Carbon Dioxide 27, Anion Gap 9.9, BUN 31 H, Creatinine 1.80 H, Estimated Creat Clear 27, Estimated GFR 28 L, Est GFR ( Amer) 34 L, Glucose 110 H, Calcium 9.5, Magnesium 2.2, Total Bilirubin 0.2, AST 18, ALT 9 L, Alkaline Phosphatase 181 H, Total Protein 6.7, Albumin 3.1 L, Globulin 3.6 H, Albumin/Globulin Ratio 0.9 L 11/22/23 11:08: POC Glucose 119 H I & O for Labs for Last 24 Hours: Intake & Output 11/19/23 11/20/23 11/21/23 11/22/23 23:59 23:59 23:59 23:59 Intake Total 0 / 0 390 / 510 1260 / 1260 270 / 270 Output Total 750 / 750 2100 / 2350 800 / 800 Balance 0 / 0 -360 / -240 -840 / -1090 -530 / -530 Weight 53.116 kg 53.61 kg 56.518 kg 56.654 kg Constitutional: Present no acute distress, average body habitus, chronically ill appearing and cooperative Comment:: Fatigue, falls asleep easily on exam but will awaken and answer questions Head: Present atraumatic and normocephalic ENT: Present normal exam Respiratory: Present normal respiratory effort; Absent rhonchi, wheezes or crackles Cardiac: Present Reg Rate and Rhythm GI: Present soft, tenderness (Diffuse, nonfocal, interval improvement from yesterday), rebound and normal bowel sounds; Absent distention Extremities: Present normal inspection, full ROM and edema (1+ to knees) Skin: Present intact; Absent erythema Neuro: Present Grossly Intact, alert, awake and moves all extremities Comment:: Oriented to self Assessment and Plan *Assessment and plan (1) Abdominal pain, lower: Status: Acute Category: Medical Code(s): R10.30 - Lower abdominal pain, unspecified (2) Lactic acidosis: Status: Acute Category: Medical Code(s): E87.20 - Acidosis, unspecified (3) Vaginal yeast infection: Status: Acute Category: Medical Code(s): B37.31 - Acute candidiasis of vulva and vagina (4) Acute nontraumatic kidney injury: Status: Acute Category: Medical Code(s): N17.9 - Acute kidney failure, unspecified (5) Diabetes mellitus type II, controlled: Status: Acute Qualifiers: Diabetes mellitus complication status: with other specified complication Diabetes mellitus alf insulin use: unspecified 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 Qualified Code(s): E11.69 - Type 2 diabetes mellitus with other specified complication Category: Medical Code(s): E11.9 - Type 2 diabetes mellitus without complications (6) HLD (hyperlipidemia): Status: Acute Qualifiers: Hyperlipidemia type: unspecified Qualified Code(s): E78.5 - Hyperlipidemia, unspecified Category: Medical Code(s): E78.5 - Hyperlipidemia, unspecified (7) PTSD (post-traumatic stress disorder): Status: Acute Category: Medical Code(s): F43.10 - Post-traumatic stress disorder, unspecified (8) Hypertension: Status: Acute Qualifiers: Hypertension type: essential hypertension Qualified Code(s): I10 - Essential (primary) hypertension Category: Medical Code(s): I10 - Essential (primary) hypertension (9) Major depressive disorder with psychotic features: Status: Acute Category: Medical Code(s): F32.3 - Major depressive disorder, single episode, severe with psychotic features (10) Weakness: Status: Acute Category: Medical Code(s): R53.1 - Weakness Plan 68 yo F with PMHx of CKD, type 2 diabetes mellitus, hyperlipidemia, PTSD, hypertension and major depressive disorder, patient id resident of [place]. Brought in to ED for evaluation of lower abdominal pain started this morning. suspected urinary retention. Initial intervention with benson catherter palacement, bladder released. urine concerning for UTI, moderate yeast infection. started on ceftriaxone and Fluconazole. labs reviewed. CBC positive for leukopenia, creatinine above the baseline. suspected KUSUM. Findings discussed with ED. agreed for admission. Awaiting urine culture. Benson removed yester day, voiding independently. Quite weak. Necessitating two-person assist. Reevaluate placement needs. Continues to require inpatient management. Problems addressed as follows: -KUSUM likely post renal. due to Acute urinary retention. in the course of Acute UTI secondary to vaginal yeast infection: Continue ceftriaxone and fluconazole. Benson removed. Voiding independently. Urine culture pending. no growth to date White cell count normal at 4.9. Hemoglobin 8.4. repeat CBC, CMP, magnesium ordered for the morning. Creatinine 1.8, BUN 31. Appears to be at baseline. Magnesium 2.2, potassium 4.9. Magnesium 400 mg daily to promote bowel movement as well as maintain stable levels. Diabetes mellitus: A1c 5.6. Sliding scale insulin fingersticks ACHS. Discontinue metformin at discharge to decrease pill burden. Diabetes well-controlled HLD, HTN: Continue Lipitor 20 mg daily, holding HCTZ Lasix 40 mg IV x 1 for edema PTSD and MDD: Continue Zoloft 200 mg daily, quetiapine 100 mg nightly decreased from twice daily due to sedation. Continue paliperidone 12 mg daily, Remeron 15 mg nightly. Decrease Haldol to 5 mg 3 times a day. Patient more fatigued today and appears oversedated. Lovenox for DVT ppx On protonix Diabetic diet Full code Therapy working with patient daily. Necessitating two-person assist. Concerned she has declined and needs placement. Reevaluate in the morning.
[2023-11-22 15:29] VITALS: BP 131/65; PULSE 85; RESP 18; TEMP 36.4; O2SAT 98
--- NOTE | 2023-11-22 15:31 | PC.NURSE ---
pt. had a large unmeasured void. pt was a one assist to bsc
[2023-11-22 16:31] LABS: POC Glucose,Bedside 145 (70-110)
--- NOTE | 2023-11-22 18:30 | PC.NURSE ---
Pt has done well this shift. Was up to the chair for meals. had a mineral enema today. no BM yet. VSS.
[2023-11-22] MEDS: CEFTRIAXONE SODIUM 1 GM in 0.9 % SODIUM CHLORIDE 50 ML IV (19:39)
[2023-11-22 19:57] VITALS: BP 118/65; PULSE 88; RESP 16; TEMP 36.9; O2SAT 98
[2023-11-22] MEDS: PANTOPRAZOLE 40MG TABLET 40 MG PO (21:31)
[2023-11-22] MEDS: PRAZOSIN 1MG CAP 2 MG PO (21:31)
[2023-11-22] MEDS: MELATONIN 5MG TABLET 5 MG PO (21:31)
[2023-11-22] MEDS: FLUCONAZOLE IN NACL,ISO-OSM 200 MG/100 ML PIGGYBACK IV (21:31)
[2023-11-22] MEDS: QUETIAPINE 100MG TABLET 100 MG PO (21:32)
[2023-11-22] MEDS: MIRTAZAPINE 15 MG TABLET PO (21:32)
[2023-11-23] VITALS: BP 117/56; PULSE 105; RESP 16; TEMP 36.7; O2SAT 97
[2023-11-23] MEDS: ACETAMINOPHEN 325MG TAB 650 MG PO (03:57)
[2023-11-23 04:00] VITALS: BP 124/58; PULSE 82; RESP 16; TEMP 36.7; O2SAT 97; BMI 25.0
--- NOTE | 2023-11-23 04:58 | PC.NURSE ---
Pt is alert and oriented. Complained of pain 1 time, treated per sep. Up to bedside commode. No other complaints voiced. Bed alarm on. Call light in reach.
[2023-11-23 06:44] LABS: Chloride 103 mmol/L (98-107)
[2023-11-23 06:45] LABS: Potassium 4.7 mmoL/L (3.5-5.1); Sodium 136 mmol/L (136-145)
[2023-11-23 06:47] LABS: Alanine Aminotransferase 11 U/L (12-78); Alkaline Phosphatase 159 U/L (38-126); Aspartate Amino Transferase 18 U/L (14-36); Bilirubin,Total 0.2 mg/dl (0.2-1.3); Blood Urea Nitrogen 35 mg/dl (7-17); Creatinine Clearance Estimated 24 mL/min (50-200); Estimated Glomerular Filt Rate 25 ml/min (>60); GFR (African American) 30 ML/MIN (>60)
[2023-11-23 06:48] LABS: Albumin Level 2.9 g/dl (3.5-5.0); Albumin/Globulin Ratio 0.9 (1.1-1.8); Anion Gap 8.7 mEq/L (5-15); Calcium 9.6 mg/dl (8.4-10.2); Carbon Dioxide 29 mmol/L (22.0-30.0); Globulin 3.4 g/dL (1.3-3.2); Glucose 106 mg/dl (74-100); Total Protein,Serum 6.3 g/dl (6.3-8.2)
[2023-11-23 07:29] VITALS: BP 131/62; PULSE 86; RESP 16; TEMP 36.6; O2SAT 98
[2023-11-23] MEDS: POLYETHYLENE GLYCOL 3350 17 GM PACKET PO (08:25)
[2023-11-23] MEDS: OXYBUTYNIN 5MG TAB 5 MG PO (08:26)
[2023-11-23] MEDS: PALIPERIDONE 6 MG 2 EACH PO (08:26)
[2023-11-23] MEDS: SERTRALINE 100MG TABLET 200 MG PO (08:27)
[2023-11-23] MEDS: ENOXAPARIN 30MG/0.3ML SYRINGE 30 MG SQ (08:27)
[2023-11-23] MEDS: haloperidoL 5 MG TABLET PO (08:27)
[2023-11-23] MEDS: MAGNESIUM OXIDE 400MG TABLET 400 MG PO (08:27)
[2023-11-23] MEDS: SENNOSIDES 8.6MG/DOCUSATE 50MG TABLET 1 TAB PO (08:27)
[2023-11-23 11:33] LABS: POC Glucose,Bedside 109 (70-110)
[2023-11-23 11:46] VITALS: BP 136/63; PULSE 75; RESP 17; TEMP 36.4; O2SAT 98
--- NOTE | 2023-11-23 12:40 | P.DS_ITS ---
General Admission date:: 11/22/23 Discharge date: 11/23/23 HPI HPI HPI: This is a 68 yo F with PMHx of CKD, type 2 diabetes mellitus, hyperlipidemia, PTSD, hypertension and major depressive disorder, patient id resident of [place]. Brought in to ED for evaluation of lower abdominal pain started this morning. patient is a poor historian, presented with flat affect, therefore history is limited. Patient is hemodynamically stable upon arrival, febrile. Physical exam is remarkable for tenderness palpation suprapubic area of the abdomen over the bladder. There is no rebound or guarding or rigidity. Had no other complains. Admitted for treatment Hospital Course Hospital Course Hospital Course: Patient was seen and evaluated at the bedside on the day of discharge. Patient wishes to be discharged. All patient questions were answered and patient was given time to ask questions. Patient was discharged in stable condition. Patient understands that she can return to ER in case of any sudden changes in health. Total time spent on DC - 38 mins 68 yo F with PMHx of CKD, type 2 diabetes mellitus, hyperlipidemia, PTSD, hypertension and major depressive disorder, patient id resident of [place]. Brought in to ED for evaluation of lower abdominal pain started this morning. suspected urinary retention. Initial intervention with benson catherter palacement, bladder released. urine concerning for UTI, moderate yeast infection. started on ceftriaxone and Fluconazole. labs reviewed. CBC positive for leukopenia, creatinine above the baseline. suspected KUSUM. Findings discussed with ED. agreed for admission. Awaiting urine culture. Benson removed yesterday, voiding independently. Quite weak. Necessitating two-person assist. Reevaluate placement needs. Continues to require inpatient management. Problems addressed as follows: -KUSUM likely post renal. due to Acute urinary retention. in the course of Acute UTI secondary to vaginal yeast infection: - stable, Cr around 1.80, likely new baseline DC on cefuroxime, avoid Quinolones gives multiple QT prolonging meds Diabetes mellitus: HLD, HTN: Stable Lovenox for DVT ppx On protonix Exam Data for Last 24 hours Vital signs and Labs for Last 24 Hours: Temp Pulse Resp BP Pulse Ox O2 Del Method 97.6 F 75 17 136/63 98 Room Air 11/23/23 11:46 11/23/23 11:46 11/23/23 11:46 11/23/23 11:46 11/23/23 11:46 11/23/23 11:46 Laboratory Results - last 24 hr 11/22/23 16:23: POC Glucose 145 H 11/23/23 06:00: Sodium 136, Potassium 4.7, Chloride 103, Carbon Dioxide 29, Anion Gap 8.7, BUN 35 H, Creatinine 2.00 H, Estimated Creat Clear 24, Estimated GFR 25 L, Est GFR ( Amer) 30 L, Glucose 106 H, Calcium 9.6, Total Bilirubin 0.2, AST 18, ALT 11 L, Alkaline Phosphatase 159 H, Total Protein 6.3, Albumin 2.9 L, Globulin 3.4 H, Albumin/Globulin Ratio 0.9 L 11/23/23 11:26: POC Glucose 109 I & O for Last 24 hours: Intake & Output 11/20/23 11/21/23 11/22/23 11/23/23 23:59 23:59 23:59 23:59 Intake Total 390 / 510 1260 / 1260 900 / 1050 390 / 390 Output Total 750 / 750 2100 / 2350 1400 / 1400 0 / 0 Balance -360 / -240 -840 / -1090 -500 / -350 390 / 390 Weight 53.61 kg 56.518 kg 56.654 kg 56.336 kg Microbiology Reports for the Last 24 Hours: Microbiology 11/19/23 20:32 Urine,Clean Catch Urine Culture - Final Constitutional Constitutional: no acute distress *Routine HEENT Exam Head: Present normocephalic Eye: Present EOMI and PERRL ENT: Present mucous membranes moist *Routine Neck Exam Neck: Present supple; Absent lymphadenopathy *Routine Respiratory Exam Respiratory: Present CTA bilaterally *Routine Cardiovascular Exam Cardiovascular: Present RRR *Routine Abdominal Exam Abdominal: Present soft and normoactive bowel sounds; Absent tenderness *Routine Extremities Exam Extremities: Absent cyanosis, clubbing or edema *Routine Skin Exam Skin: Present warm; Absent rash *Routine Neurological Exam Neurological: Present alert and oriented X3 Results Data Completed and Pending Labs on day of discharge: Labs from last 24 hours 11/23/23 11/23/23 11/22/23 11:26 06:00 16:23 Sodium 136 Potassium 4.7 Chloride 103 Carbon Dioxide 29 Anion Gap 8.7 BUN 35 H Creatinine 2.00 H Estimated Creat Clear 24 Estimated GFR 25 L Est GFR ( Amer) 30 L Glucose 106 H POC Glucose 109 145 H Calcium 9.6 Total Bilirubin 0.2 AST 18 ALT 11 L Alkaline Phosphatase 159 H Total Protein 6.3 Albumin 2.9 L Globulin 3.4 H Albumin/Globulin Ratio 0.9 L DS: Diagnosis Discharge Diagnosis (1) Abdominal pain, lower: Status: Acute Code(s): R10.30 - Lower abdominal pain, unspecified (2) Lactic acidosis: Status: Acute Code(s): E87.20 - Acidosis, unspecified (3) Vaginal yeast infection: Status: Acute Code(s): B37.31 - Acute candidiasis of vulva and vagina (4) Acute nontraumatic kidney injury: Status: Acute Code(s): N17.9 - Acute kidney failure, unspecified (5) Diabetes mellitus type II, controlled: Status: Acute Code(s): E11.9 - Type 2 diabetes mellitus without complications Qualifiers: Diabetes mellitus complication status: with other specified complication Diabetes mellitus care home insulin use: unspecified long term care pharmacist insulin use status Qualified Code(s): E11.69 - Type 2 diabetes mellitus with other specified complication (6) HLD (hyperlipidemia): Status: Acute Code(s): E78.5 - Hyperlipidemia, unspecified Qualifiers: Hyperlipidemia type: unspecified Qualified Code(s): E78.5 - Hyperlipidemia, unspecified (7) PTSD (post-traumatic stress disorder): Status: Acute Code(s): F43.10 - Post-traumatic stress disorder, unspecified (8) Hypertension: Status: Acute Code(s): I10 - Essential (primary) hypertension Qualifiers: Hypertension type: essential hypertension Qualified Code(s): I10 - E ssential (primary) hypertension (9) Major depressive disorder with psychotic features: Status: Acute Code(s): F32.3 - Major depressive disorder, single episode, severe with psychotic features (10) Weakness: Status: Acute Code(s): R53.1 - Weakness Meds Home Medications and Allergies Home Medications Medication Instructions Recorded Confirmed Type atorvastatin 20 mg tablet (Lipitor) 20 mg PO DAILY 09/02/19 11/20/23 History furosemide 40 mg tablet 40 mg PO DAILY 09/02/19 11/20/23 History hydrochlorothiazide 12.5 mg capsule 12.5 mg PO DAILY 09/02/19 11/20/23 History mirtazapine 15 mg tablet 15 mg PO HS 09/02/19 11/20/23 History prazosin 2 mg capsule 2 mg PO HS 09/02/19 11/20/23 History sertraline 100 mg tablet 200 mg PO DAILY 01/01/21 11/20/23 History ergocalciferol (vitamin D2) 1,250 1,250 mcg PO WEEKLY 11/20/23 11/20/23 History mcg (50,000 unit) capsule (Vitamin D2) melatonin 5 mg tablet 5 mg PO HS 11/20/23 11/20/23 History oxybutynin chloride 10 mg 10 mg PO DAILY 11/20/23 11/20/23 History tablet,extended release 24 hr paliperidone 6 mg tablet,extended 12 mg PO DAILY 11/20/23 11/20/23 History release 24 hr quetiapine 100 mg tablet 100 mg PO HS 30 days #0 tabs 11/21/23 11/20/23 Rx cefuroxime axetil 500 mg tablet 500 mg PO BID 7 days #14 tabs 11/23/23 Rx haloperidol 5 mg tablet 5 mg PO BID #14 tabs 11/23/23 Rx New Prescriptions to Start Prescriptions: cefuroxime axetil Brittany Razo haloperidol Dung,Gabrielaan Allergies Allergy/AdvReac Type Severity Reaction Status Date / Time latex Allergy Intermediate Rash Verified 01/01/21 11:20 Sulfa (Sulfonamide Allergy Intermediate Rash Verified 01/01/21 11:20 Antibiotics) Discharge Plan Disposition Patient Disposition: Home, Self-Care Condition: Fair Discharge Order Discharge Orders: Discharge Order (Routine); Ordered 11/23/23 Ordered By: Brittany Razo Follow up Plan Prescriptions/Medication Reconciliation: New cefuroxime axetil 500 mg tablet 500 mg PO BID 7 Days Qty: 14 0RF haloperidol 5 mg tablet 5 mg PO BID Qty: 14 0RF Continued sertraline 100 mg tablet 200 mg PO DAILY atorvastatin [Lipitor] 20 mg tablet 20 mg PO DAILY furosemide 40 mg tablet 40 mg PO DAILY hydrochlorothiazide 12.5 mg capsule 12.5 mg PO DAILY mirtazapine 15 mg tablet 15 mg PO HS prazosin 2 mg capsule 2 mg PO HS oxybutynin chloride 10 mg tablet extended release 24hr 10 mg PO DAILY paliperidone 6 mg tablet extended release 24hr 12 mg PO DAILY melatonin 5 mg tablet 5 mg PO HS ergocalciferol (vitamin D2) [Vitamin D2] 1,250 mcg (50,000 unit) capsule 1,250 mcg PO WEEKLY Changed quetiapine 100 mg tablet 100 mg PO HS 30 Days Qty: 0 0RF Discontinued metformin 750 mg tablet extended release 24 hr 750 mg PO BID haloperidol 10 mg tablet 10 mg PO TID Problem Reconciliation Problems Reviewed?: Yes Patient Discharge Instructions ACTIVITY: Continue current activity DIET: continue same diet Patient Instructions: DI for Urinary Tract Infection (UTI), DI for Abdominal Pain-Adult, Catheter-associated Urinary Tract Infection, DI for Acute Kidney Injury Providers Primary Care Provider: Provider,Referral Admit Provider: Lee Dubois Attending Provider: Lee Dubois
== END 2023-11-23 13:40 | disposition home health service (06) | DRG 683 ==
LOC: ER 20:35 → 2ND 21:32
PROVIDERS: Nurse Practitioner Family; Physician Assistant; Admitting Provider Internal Medicine Adolescent Medicine; Emergency Provider Emergency Medicine; Visit Provider Internal Medicine Adolescent Medicine
DX: N17.9 Acute kidney failure, unspecified (principal); E87.20 Acidosis, unspecified; F32.3 Major depressive disorder, single episode, severe with psychotic features; B37.31 Acute candidiasis of vulva and vagina; E78.5 Hyperlipidemia, unspecified; F43.10 Post-traumatic stress disorder, unspecified; I10 Essential (primary) hypertension; F17.210 Nicotine dependence, cigarettes, uncomplicated; E11.22 Type 2 diabetes mellitus with diabetic chronic kidney disease; I12.9 Hypertensive chronic kidney disease with stage 1 through stage 4 chronic kidney disease, or unspecified chronic kidney disease; N18.9 Chronic kidney disease, unspecified
CPT/HCPCS: 36415; 51702; 74176; 80053; 81001; 82962; 83036; 83605; 83735; 84100; 84484; 85025; 87086; 97110; 97162; 97165; 97530; 99285; G0378; J0131; J0696; J3475

== ENCOUNTER 2025-07-04 16:22 | Observation (INO) | payer MEDICARE, OTHER, SELFPAY ==
[2025-07-04] VITALS (16 sets, daily range): BP systolic 94–130; BP diastolic 39–85; PULSE 64–136; RESP 16–18; TEMP 36.6–37.4; O2SAT 92–98; BMI 28.3; BMI 24.4
--- NOTE | 2025-07-04 16:36 | XR_ITS ---
PROCEDURE INFORMATION: Exam: XR Chest Exam date and time: 07/04/2025 5:01 PM Age: 69 years old Clinical indication: Other: Congestion; Additional info: Chest congestion TECHNIQUE: Imaging protocol: Radiologic exam of the chest. Views: 1 view. COMPARISON: CT LUNG SCREENING 06/03/2023 4:13 PM FINDINGS: Lungs: Stable large granuloma. The lungs remain clear. Pleural spaces: Unremarkable. No pleural effusion. No pneumothorax. Heart/Mediastinum: Heart is within normal limits. Bones/joints: Unremarkable. IMPRESSION: Stable large granuloma. The lungs remain clear. Heart is within normal limits.
--- NOTE | 2025-07-04 16:37 | ED_ITS ---
<Statement entered by Chel Downey DO - 07/05/25 00:42> I was consulted by the THERON, and we discussed the complexity of problems being addressed. I approve the treatment and management plan for this patient's care in the emergency department, thus performing a substantial portion of the medical decision making. Chel Downey DO Discharge Plan Disposition Patient Disposition: Admitted Condition: Good Clinical Impressions Clinical Impression: COVID, Troponin level elevated Discharge ED Provider: Chel Downey General Adult HPI <MAR Garcia - Last Filed: 07/04/25 17:59> General Chief complaint: Weakness Stated complaint: Dizziness Time Seen by Provider: 07/04/25 16:31 History of Present Illness HPI narrative: Patient is an ill-appearing but oriented 69-year-old female who presents to the emergency department via EMS for dizziness. Patient is a resident at [facility]. Patient states that she has been dizzy since waking this morning and states that her weakness has been going on throughout the day today. Patient denies any fever, shortness of breath, chest pain. Related Data Home Medications ?Medication ?Instructions ?Recorded ?Confirmed atorvastatin 20 mg tablet (Lipitor) 20 mg PO DAILY 02/1211/20/23 furosemide 40 mg tablet 40 mg PO DAILY 09/02/1910/26 hydrochlorothiazide 12.5 mg capsule 12.5 mg PO DAILY 0 09/02/19 11/20/23 mirtazapine 15 mg tablet 15 mg PO HS 09/02/19 4 prazosin 2 mg capsule 2 mg PO HS 09/02/19 11/20/23 sertraline 100 mg tablet 200 mg PO DAILY 01/01/21 ergocalciferol (vitamin D2) 1,250 1,250 mcg PO WEEKLY 11/20/23 11/20/23 mcg (50,000 unit) capsule (Vitamin D2) melatonin 5 mg tablet 5 mg PO HS 11/20/23 11/20/23 oxybutynin chloride 10 mg 10 mg PO DAILY 11/20/2310/26 tablet,extended release 24 hr paliperidone 6 mg tablet,extended 12 mg PO DAILY 11/1911/20/23 release 24 hr Previous Rx's ?Medication ?Instructions ?Recorded quetiapine 100 mg tablet 100 mg PO HS 30 days #0 tabs 11/21/23 cefuroxime axetil 500 mg tablet 500 mg PO BID 7 days # 14 tabs 11/23/23 haloperidol 5 mg tablet 5 mg PO BID #14 tabs 4 Allergies Allergy/AdvReac Type Severity Reaction Status Date / Time latex Allergy Intermediate Rash Verified 01/01/21 11:20 Sulfa (Sulfonamide Allergy Intermediate Rash Verified 01/01/21 11:20 Antibiotics) <Chel Downey DO - Last Filed: 07/05/25 00:48> History of Present Illness HPI narrative: Patient is an ill-appearing but oriented 69-year-old female who presents to the emergency department via EMS for weakness. Patient is a resident at [facility]. Patient states that she has felt generally weak since this morning since she woke up and is having more difficulties walking. Patient denies any urinary symptoms. Patient denies any chest pain or shortness of breath. Patient denies any headache. Patient has had some cough. Patient denies any recent surgeries. Patient denies any fevers. Patient denies any room spinning sensation. Patient states that she has been eating and drinking appropriately. [facility] <MAR Garcia - Last Filed: 07/04/25 17:59> [facility] Disclaimer: The information contained in this section may have been updated after the patient was seen, as this information can be updated by other users. Surgical History (Updated 11/19/23 @ 22:07 by Trudi Glez RN) Hx of hemorrhoidectomy Social History (Updated 11/19/23 @ 22:08 by Trudi Glez RN) Smoking Status: Current every day smoker tobacco type: cigarettes packs per day: 1 alcohol intake: never current occupational status: retired Travel in the last 8 weeks?: None housing: residential Have you lived/traveled outside [place] in past 30 days?: No Contact w/someone who lives/traveled outside US past 30 days?: No Exposure to someone with infectious disease in past 14 days?: No Do you have a fever (greater than 100.4 F or 38 C)?: No Have you tested positive for COVID-19?: No Exposed to someone with COVID-19 in past 14 days?: No Do you have a sore throat?: No Do you have a cough?: No Do you have any weakness?: No Do you have any diarrhea?: No Are you experiencing any unusual bleeding?: No Do you have any muscle aches/pain?: No Do you have any abdominal pain?: No Are you experiencing loss of taste or smell?: No Other Medical History Have you received the Flu Vaccine for this season: No Have you received the Pneumonia Vaccine: No <MAR Garcia - Last Filed: 07/04/25 17:59> ROS Obtained: Yes Systems reviewed as appropriate & no additional complaints except as documented <Chel Downey DO - Last Filed: 07/05/25 00:48> ROS Obtained: Yes All systems reviewed & no additional complaints except as documented and Yes Systems reviewed as appropriate & no additional complaints except as documented Physical Exam <MAR Garcia Last Filed: 07/04/25 17:59> General General appearance: alert and in no apparent distress Comment: Tired and fatigued appearing but responsive and not lethargic Head Head exam: atraumatic and normocephalic Eye Eye exam: Present normal appearance and PERRL ENT ENT exam: Present mucous membranes dry Neck Neck exam: Present normal inspection and trachea midline Chest Chest inspection: Present normal inspection and symmetric chest wall rise; Absent tenderness Respiratory Respiratory exam: Present normal lung sounds bilaterally; Absent respiratory distress, wheezes or stridor Cardiovascular Cardiovascular exam: Present regular rate, normal rhythm and other (Patient's feet and ankles are edematous bilaterally. Patient states they seem normal to her.) Abdominal Exam Abdominal exam: Present soft and normal bowel sounds; Absent distention, tenderness or rigidity Neurological Exam Neurological exam: Present alert and oriented X3 Psychiatric Psychiatric exam: Present normal mood and flat affect Skin Skin exam: Present warm, dry and normal color <Chel Downey DO - Last Filed: 07/05/25 00:48> Neurological Exam Neurological exam: Present CN II-XII intact, normal gait and reflexes normal; Absent motor sensory deficit Medical Decision Making <MAR Garcia - Last Filed: 07/04/25 17:59> Medical Records Screening: Per USPSTF and CDC recommendations, given the prevalence of disease in our region, it is our hospital?s policy to screen for HIV and viral Hepatitis for all patients aged 18 and over and those with ongoing risk factors. [place] Inquiry Pt receiving controlled substance: No Vital Signs: 07/04/25 16:22 07/04/25 16:25 07/04/25 16:30 Temperature 99.3 F Temperature Source Oral Pulse Rate 136 H 109 H Pulse Rate [Radial] 110 H Respiratory Rate 18 Blood Pressure 124/64 100/58 L Blood Pressure [Right Arm] 124/64 Blood Pressure Mean Blood Pressure Mean [Right Arm] 84 Blood Pressure Source [Right Arm] Automatic Cuff Blood Pressure Position [Right Arm] Sitting 02 Sat by Pulse Oximetry 98 92 L 94 L Oxygen Delivery Method Room Air 07/04/25 17:00 07/04/25 17:30 07/04/25 19:00 Temperature Temperature Source Pulse Rate 104 H 100 H 102 H Pulse Rate [Radial] Respiratory Rate Blood Pressure 108/85 L 128/60 99/46 L Blood Pressure [Right Arm] Blood Pressure Mean 63 Blood Pressure Mean [Right Arm] Blood Pressure Source [Right Arm] Blood Pressure Position [Right Arm] 02 Sat by Pulse Oximetry 92 L 94 L 94 L Oxygen Delivery Method 07/04/25 19:12 07/04/25 19:30 07/04/25 20:01 Temperature Temperature Source Pulse Rate 104 H 82 87 Pulse Rate [Radial] Respiratory Rate 18 Blood Pressure 99/46 L 97/48 L 104/39 L Blood Pressure [Right Arm] Blood Pressure Mean 58 56 Blood Pressure Mean [Right Arm] Blood Pressure Source [Right Arm] Blood Pressure Position [Right Arm] 02 Sat by Pulse Oximetry 96 94 L 93 L Oxygen Delivery Method Room Air 07/04/25 20:30 07/04/25 20:43 07/04/25 20:54 Temperature Temperature Source Pulse Rate 77 96 H 75 Pulse Rate [Radial] Respiratory Rate 18 Blood Pressure 94/45 L 95/52 L 95/52 L Blood Pressure [Right Arm] Blood Pressure Mean 60 64 Blood Pressure Mean [Right Arm] Blood Pressure Source [Right Arm] Blood Pressure Position [Right Arm] 02 Sat by Pulse Oximetry 92 L 93 L 95 Oxygen Delivery Method Room Air 07/04/25 21:00 07/04/25 21:40 Temperature 98.6 F Temperature Source Oral Pulse Rate 74 66 Pulse Rate [Radial] Respiratory Rate 18 Blood Pressure 99/46 L 114/53 L Blood Pressure [Right Arm] Blood Pressure Mean 66 Blood Pressure Mean [Right Arm] Blood Pressure Source [Right Arm] Blood Pressure Position [Right Arm] 02 Sat by Pulse Oximetry 96 Oxygen Delivery Method Room Air Lab Data Lab results reviewed: Yes I reviewed the patient's lab results. Lab Results 07/04/25 16:30: WBC 7.0, RBC 3.38 L, Hgb 9.1 L, Hct 28.6 L, MCV 84.6, MCH 26.9 L , MCHC 31.8, RDW 14.6, Plt Count 176, MPV 9.2, Neut % (Auto) 88.7 H, Lymph % (Auto) 3.1 L, [place] % (Auto) 6.4, Eos % (Auto) 1.3, Baso % (Auto) 0.1, Neut # (Auto) 6.2, Lymph # (Auto) 0.2 L, [place] # (Auto) 0.5, Eos # (Auto) 0.1, Baso # (Auto) 0.0, Total Counted 100, Neutrophils % (Manual) 83 H, Lymphocytes % (Manual) 11, Monocytes % (Manual) 4, Eosinophils % (Manual) 2, Platelet Estimate Normal, Hypochromasia 1+, Sodium 135 L, Potassium 3.3 L, Chloride 88 L, Carbon Dioxide 30, Anion Gap 20.3 H, BUN 54 H, Creatinine 2.30 H, Estimated Creat Clear 24, Estimated GFR 21 L, Est GFR ( Amer) 26 L, Glucose 134 H, Calcium 10.6 H, Phosphorus 3.2, Magnesium 1.9, Total Bilirubin 0.4, AST 18, ALT 13, Alkaline Phosphatase 181 H, Troponin I 0.04 H, NT-Pro-B Natriuret Pep 934 H, Total Protein 9.3 H D, Albumin 4.5, Globulin 4.8 H, Albumin/Globulin Ratio 0.9 L, TSH 1.23, HCV Ab DAVID w/Rflx PCR Qn Negative, HIV Ag/Ab Combo Qual Negative 07/04/25 16:50: SARS-CoV-2 (PCR) Detected A, Influenza Type A (PCR) Not detected, Influenza Type B (PCR) Not detected, RSV (PCR) Not detected, Rhinovirus (PCR) Not detected 07/04/25 19:37: Troponin I 0.06 H 07/04/25 16:30 07/04/25 16:30 Orders (Tests/Meds): ED MEDICATIONS Generic Name Dose Route Start Last Admin Trade Name Freq PRN Reason Stop Dose Admin Acetaminophen 650 mg 07/04/25 21:06 Acetaminophen 325mg Tab PO 08/03/25 21:05 Q4HP PRN Fever or Mild Pain (1-3) Enoxaparin Sodium 40 mg 07/05/25 21:00 Enoxaparin 40mg/0.4ml Syringe SUBCUT 08/04/25 20:59 HS JACOB Sodium Chloride 1,000 mls @ 75 mls/hr 07/04/25 21:15 Sod Chlor 0.9% 1000ml Bag IV 08/03/25 21:14 .[id number] JACOB Remdesivir 200 mg/ Sodium 250 mls @ 250 mls/hr 07/05/25 00:30 Chloride IV 07/05/25 01:29 ONCE ONE Miscellaneous 1 each 07/04/25 21:06 07/05/25 00:42 Remdesivir Pharmacy Consult Request NOTAPPLIC 07/04/25 21:07 1 each CONSULT PHARMACY ONE Administration Discontinued Medications Generic Name Dose Route Start Last Admin Trade Name Daljit PRN Reason Stop Dose Admin Acetaminophen 1,000 mg 07/04/25 18:22 07/04/25 18:37 Acetaminophen 1,000mg/100ml Vial IV 07/04/25 18:23 1,000 mg ONCE ONE Administration Aspirin 324 mg 07/04/25 20:40 07/04/25 20:52 Aspirin 81mg Chewable Tablet PO 07/04/25 20:41 324 mg ONCE ONE Administration Lactated Ringer's 1,000 mls @ 999 mls/hr 07/04/25 18:22 07/04/25 20:57 Lactated Ringer's 1000 Ml Bag IV 07/04/25 19:22 Infused .Q1H1M ONE Infusion Lactated Ringer's 1,000 mls @ 999 mls/hr 07/04/25 20:43 07/04/25 20:51 Lactated Ringer's 1000 Ml Bag IV 07/04/25 21:43 999 mls/hr .Q1H1M ONE Administration Ondansetron HCl 4 mg 07/04/25 18:22 07/04/25 18:38 Ondansetron 4mg/2ml Vial IV 07/04/25 18:23 4 mg ONCE ONE Administration Potassium Chloride 40 meq 07/04/25 18:24 07/04/25 18:38 Potassium Chloride 20meq Tab PO 07/04/25 18:25 40 meq ONCE ONE Administration ORDERS Category Date Time Status CXR --portable [XR chest portable] Stat Exams 07/04/25 16:36 Completed BNP [NT Pro Brain Natriuretic Pep.] Stat Lab 07/04/25 16:30 Completed CBC w/Auto Diff [Complete Blood Count Auto Diff] Stat Lab 07/04/25 16:30 Completed CMP [Comprehensive Metabolic Panel] Stat Lab 07/04/25 16:30 Completed HIV Combo Stat Lab 07/04/25 16:30 Completed Hepatitis C Ab Qual. W/ RFX Stat Lab 07/04/25 16:30 Completed Magnesium Stat Lab 07/04/25 16:30 Completed Mini Respiratory Panel Stat Lab 07/04/25 16:50 Completed Phosphorous Stat Lab 07/04/25 16:30 Completed TSH [Thyroid Stimulating Hormone] Stat Lab 07/04/25 16:30 Completed Troponin I Q3H Lab 07/04/25 19:37 Completed Troponin I Q3H Lab 07/04/25 23:11 Completed Troponin I Stat Lab 07/04/25 16:30 Completed Blood Culture Stat Micro 07/04/25 23:35 Received Medical Decision Narrative: In summary patient is an ill-appearing 69-year-old female who presents to the emergency department for evaluation of dizziness and weakness. Patient is hemodynamically stable upon arrival, afebrile. [Unremarkable physical exam, nonfocal exam versus focal remarkable exam]. Differential diagnosis includes [DDx]. Initial workup will be conducted with [hematologic labs, imaging, respiratory swab, describe workup]. Initial interventions include [crystalloid bolus, medications, p.o. challenge, etc.]. Initial workup reviewed by me [hematologic labs are remarkable for? Imaging is remarkable for? Urinalysis remarkable for]. Upon repeat evaluation [patient had acceptable resolution of symptoms, had persistent pain for which additional interventions were conducted (describe interventions), tolerated p.o., was ambulatory, etc.]. Given this [patient is appropriate for discharge at this time and will be discharged with a prescription for? The case was discussed with hospital medicine regarding management and they will admit the patient to their service for continued evaluation at this time? Etc.]. Places where you can increase complexity: I informally interpreted the patient's chest x-ray or CT read and is remarkable for? Documenting the wood type finisher when it shows with rate and rhythm in time Consideration of test but deferring. Example: I considered chest x-ray on this patient however given they have no oxygen requirement are clear to auscultation all lung xavier will be deferred. Social determinants of health: Given that patient is undomiciled increases complexity. Given that patient has polysubstance abuse compounds all aspects of care. <Chel Downey, DO - Last Filed: 07/05/25 00:48> Medical Records Medical records reviewed: Yes I reviewed the patient's medical records. Vital Signs: 07/04/25 16:22 07/04/25 16:25 07/04/25 16:30 Temperature 99.3 F Temperature Source Oral Pulse Rate 136 H 109 H Pulse Rate [Radial] 110 H Respiratory Rate 18 Blood Pressure 124/64 100/58 L Blood Pressure [Right Arm] 124/64 Blood Pressure Mean Blood Pressure Mean [Right Arm] 84 Blood Pressure Source [Right Arm] Automatic Cuff Blood Pressure Position [Right Arm] Sitting 02 Sat by Pulse Oximetry 98 92 L 94 L Oxygen Delivery Method Room Air 07/04/25 17:00 07/04/25 17:30 07/04/25 19:00 Temperature Temperature Source Pulse Rate 104 H 100 H 102 H Pulse Rate [Radial] Respiratory Rate Blood Pressure 108/85 L 128/60 99/46 L Blood Pressure [Right Arm] Blood Pressure Mean 63 Blood Pressure Mean [Right Arm] Blood Pressure Source [Right Arm] Blood Pressure Position [Right Arm] 02 Sat by Pulse Oximetry 92 L 94 L 94 L Oxygen Delivery Method 07/04/25 19:12 07/04/25 19:30 07/04/25 20:01 Temperature Temperature Source Pulse Rate 104 H 82 87 Pulse Rate [Radial] Respiratory Rate 18 Blood Pressure 99/46 L 97/48 L 104/39 L Blood Pressure [Right Arm] Blood Pressure Mean 58 56 Blood Pressure Mean [Right Arm] Blood Pressure Source [Right Arm] Blood Pressure Position [Right Arm] 02 Sat by Pulse Oximetry 96 94 L 93 L Oxygen Delivery Method Room Air 07/04/25 20:30 07/04/25 20:43 07/04/25 20:54 Temperature Temperature Source Pulse Rate 77 96 H 75 Pulse Rate [Radial] Respiratory Rate 18 Blood Pressure 94/45 L 95/52 L 95/52 L Blood Pressure [Right Arm] Blood Pressure Mean 60 64 Blood Pressure Mean [Right Arm] Blood Pressure Source [Right Arm] Blood Pressure Position [Right Arm] 02 Sat by Pulse Oximetry 92 L 93 L 95 Oxygen Delivery Method Room Air 07/04/25 21:00 07/04/25 21:40 Temperature 98.6 F Temperature Source Oral Pulse Rate 74 66 Pulse Rate [Radial] Respiratory Rate 18 Blood Pressure 99/46 L 114/53 L Blood Pressure [Right Arm] Blood Pressure Mean 66 Blood Pressure Mean [Right Arm] Blood Pressure Source [Right Arm] Blood Pressure Position [Right Arm] 02 Sat by Pulse Oximetry 96 Oxygen Delivery Method Room Air Lab Data Lab Results 07/04/25 16:30: WBC 7.0, RBC 3.38 L, Hgb 9.1 L, Hct 28.6 L, MCV 84.6, MCH 26.9 L , MCHC 31.8, RDW 14.6, Plt Count 176, MPV 9.2, Neut % (Auto) 88.7 H, Lymph % (Auto) 3.1 L, [place] % (Auto) 6.4, Eos % (Auto) 1.3, Baso % (Auto) 0.1, Neut # (Auto) 6.2, Lymph # (Auto) 0.2 L, [place] # (Auto) 0.5, Eos # (Auto) 0.1, Baso # (Auto) 0.0, Total Counted 100, Neutrophils % (Manual) 83 H, Lymphocytes % (Manual) 11, Monocytes % (Manual) 4, Eosinophils % (Manual) 2, Platelet Estimate Normal, Hypochromasia 1+, Sodium 135 L, Potassium 3.3 L, Chloride 88 L, Carbon Dioxide 30, Anion Gap 20.3 H, BUN 54 H, Creatinine 2.30 H, Estimated Creat Clear 24, Estimated GFR 21 L, Est GFR ( Amer) 26 L, Glucose 134 H, Calcium 10.6 H, Phosphorus 3.2, Magnesium 1.9, Total Bilirubin 0.4, AST 18, ALT 13, Alkaline Phosphatase 181 H, Troponin I 0.04 H, NT-Pro-B Natriuret Pep 934 H, Total Protein 9.3 H D, Albumin 4.5, Globulin 4.8 H, Albumin/Globulin Ratio 0.9 L, TSH 1.23, HCV Ab DAVID w/Rflx PCR Qn Negative, HIV Ag/Ab Combo Qual Negative 07/04/25 16:50: SARS-CoV-2 (PCR) Detected A, Influenza Type A (PCR) Not detected, Influenza Type B (PCR) Not detected, RSV (PCR) Not detected, Rhinovirus (PCR) Not detected 07/04/25 19:37: Troponin I 0.06 H Orders (Tests/Meds): ED MEDICATIONS Generic Name Dose Route Start Last Admin Trade Name Fregeorge PRN Reason Stop Dose Admin Acetaminophen 650 mg 07/04/25 21:06 Acetaminophen 325mg Tab PO 08/03/25 21:05 Q4HP PRN Fever or Mild Pain (1-3) Enoxaparin Sodium 40 mg 07/05/25 21:00 Enoxaparin 40mg/0.4ml Syringe SUBCUT 08/04/25 20:59 HS JACOB Sodium Chloride 1,000 mls @ 75 mls/hr 07/04/25 21:15 Sod Chlor 0.9% 1000ml Bag IV 08/03/25 21:14 .[id number] JACOB Remdesivir 200 mg/ Sodium 250 mls @ 250 mls/hr 07/05/25 00:30 Chloride IV 07/05/25 01:29 ONCE ONE Miscellaneous 1 each 07/04/25 21:06 07/05/25 00:42 Remdesivir Pharmacy Consult Request NOTAPPLIC 07/04/25 21:07 1 each CONSULT PHARMACY ONE Administration Discontinued Medications Generic Name Dose Route Start Last Admin Trade Name Daljit PRN Reason Stop Dose Admin Acetaminophen 1,000 mg 07/04/25 18:22 07/04/25 18:37 Acetaminophen 1,000mg/100ml Vial IV 07/04/25 18:23 1,000 mg ONCE ONE Administration Aspirin 324 mg 07/04/25 20:40 07/04/25 20:52 Aspirin 81mg Chewable Tablet PO 07/04/25 20:41 324 mg ONCE ONE Administration Lactated Ringer's 1,000 mls @ 999 mls/hr 07/04/25 18:22 07/04/25 20:57 Lactated Ringer's 1000 Ml Bag IV 07/04/25 19:22 Infused .Q1H1M ONE Infusion Lactated Ringer's 1,000 mls @ 999 mls/hr 07/04/25 20:43 07/04/25 20:51 Lactated Ringer's 1000 Ml Bag IV 07/04/25 21:43 999 mls/hr .Q1H1M ONE Administration Ondansetron HCl 4 mg 07/04/25 18:22 07/04/25 18:38 Ondansetron 4mg/2ml Vial IV 07/04/25 18:23 4 mg ONCE ONE Administration Potassium Chloride 40 meq 07/04/25 18:24 07/04/25 18:38 Potassium Chloride 20meq Tab PO 07/04/25 18:25 40 meq ONCE ONE Administration ORDERS Category Date Time Status CXR --portable [XR chest portable] Stat Exams 07/04/25 16:36 Completed BNP [NT Pro Brain Natriuretic Pep.] Stat Lab 07/04/25 16:30 Completed CBC w/Auto Diff [Complete Blood Count Auto Diff] Stat Lab 07/04/25 16:30 Completed CMP [Comprehensive Metabolic Panel] Stat Lab 07/04/25 16:30 Completed HIV Combo Stat Lab 07/04/25 16:30 Completed Hepatitis C Ab Qual. W/ RFX Stat Lab 07/04/25 16:30 Completed Magnesium Stat Lab 07/04/25 16:30 Completed Mini Respiratory Panel Stat Lab 07/04/25 16:50 Completed Phosphorous Stat Lab 07/04/25 16:30 Completed TSH [Thyroid Stimulating Hormone] Stat Lab 07/04/25 16:30 Completed Troponin I Q3H Lab 07/04/25 19:37 Completed Troponin I Q3H Lab 07/04/25 23:11 Completed Troponin I Stat Lab 07/04/25 16:30 Completed Blood Culture Stat Micro 07/04/25 23:35 Received Medical Decision Narrative: Patient is a 69-year-old female who presented to the emergency department with generalized weakness. On arrival, patient was hemodynamically stable with unremarkable vital signs. Patient did have some borderline blood pressures. Patient was not tachycardic patient was afebrile. Differential includes but not limited to: Viral syndrome, pneumonia, ACS/PA, electrolyte abnormalities, dehydration, amongst others. Patient's labs were reviewed and interpreted by myself: CBC showed no leukocytosis, hemoglobin was stable. CMP was unremarkable. Initial troponin 0.04, second troponin 0.06. BNP mildly elevated at 234. Patient's respiratory panel was positive for COVID. Patient's chest x-ray was reviewed and interpreted by myself and showed no acute focal consolidation, pneumothorax, pleural effusion or other acute cardiopulmonary process. Patient's EKG was reviewed and interpreted by myself and showed no acute ST or T wave changes concerning for ischemia however there was some ST flattening in 2-3 and aVF with no reciprocal changes Patient did have some decrease blood pressures therefore patient was initially given a liter of IV fluids. Patient was ordered a second liter of IV fluids. Given patient's uptrending troponins as well as her decreased blood pressures and her COVID diagnosis I felt that patient warranted admission. Discussed the case with the hospitalist and patient was ultimately admitted to their service for further evaluation workup. Critical Care <Chel Downey, DO - Last Filed: 07/05/25 00:48> Critical Care Time Critical Care Time: No
[2025-07-04 16:45] LABS: Hematocrit 28.6 % (37.0-47.0); Hemoglobin 9.1 g/dL (12.2-16.2); Immature Granulocytes % 0.4 %; Mean Corpuscular HGB Conc 31.8 g/dL (31.8-35.4); Mean Corpuscular Hemoglobin 26.9 pg (27.0-31.2); Mean Corpuscular Volume 84.6 fl (81-99); Nucleated Red Blood Cells % 0 %; Platelet Count 176 K/mm3 (142-424); Red Blood Count 3.38 M/mm3 (4.20-5.40); Red Cell Distribution Width-SD 44.8 fL; White Blood Count 7.0 K/mm3 (4.8-10.8)
[2025-07-04 16:56] LABS: Influenza A, PCR Not Detected (NotDetected); Influenza B, PCR Not Detected (NotDetected)
[2025-07-04 17:00] LABS: Alanine Aminotransferase 13 U/L (12-78); Albumin Level 4.5 g/dl (3.5-5.0); Albumin/Globulin Ratio 0.9 (1.1-1.8); Alkaline Phosphatase 181 U/L (38-126); Anion Gap 20.3 mEq/L (5-15); Aspartate Amino Transferase 18 U/L (14-36); Bilirubin,Total 0.4 mg/dl (0.2-1.3); Blood Urea Nitrogen 54 mg/dl (7-17); Calcium 10.6 mg/dl (8.4-10.2); Carbon Dioxide 30 mmol/L (22.0-30.0); Chloride 88 mmol/L (98-107); Creatinine,Serum 2.30 mg/dl (0.52-1.04); Estimated Glomerular Filt Rate 21 ml/min (>60); GFR (African American) 26 ML/MIN (>60); Globulin 4.8 g/dL (1.3-3.2); Glucose 134 mg/dl (74-100); Magnesium 1.9 mg/dl (1.6-2.3); Phosphorous 3.2 mg/dl (2.5-4.5); Potassium 3.3 mmoL/L (3.5-5.1); Sodium 135 mmol/L (136-145); Total Protein,Serum 9.3 g/dl (6.3-8.2)
[2025-07-04 17:15] LABS: Creatinine Clearance Estimated 24 mL/min (50-200); NT Pro Brain Natriuretic Pep. 934 pg/mL (0-125); Troponin I 0.04 ng/ml (0.00-0.034)
[2025-07-04 17:34] LABS: Thyroid Stimulating Hormone 1.23 uIU/mL (0.465-4.68)
--- NOTE | 2025-07-04 17:51 | ECG_ITS ---
APPROVED REPORT Exam: Resting ECG HR:95 bpm ECG Measurements Heart Rate 95 AXES HI 166 P 60 QRSd 112 QRS 16 QT 352 T 74 QTc 404 Conclusion SINUS RHYTHM MODERATE INTRAVENTRICULAR CONDUCTION DELAY [110+ ms QRS DURATION] NONSPECIFIC ST & T-WAVE ABNORMALITY ST depression in lead II, aVF as well as V5-6, No STEMI Electronically signed by : THOMAS PALACIOS, 07/07/2025 06:48:57
[2025-07-04 18:02] LABS: Total Cells Counted 100
[2025-07-04 18:03] LABS: Hypochromasia 1+
[2025-07-04 18:28] LABS: Hepatitis C Ab Qual. W/ RFX NEGATIVE (Negative)
[2025-07-04 18:31] LABS: Coronavirus 19, PCR Detected (NotDetected)
[2025-07-04] MEDS: LACTATED RINGERS 1000ML 1,000 ML 999 ML IV ×2 (18:37→20:51)
[2025-07-04] MEDS: ACETAMINOPHEN 1,000MG/100ML VIAL 1000 MG IV (18:37)
[2025-07-04] MEDS: POTASSIUM CHLORIDE 20MEQ TAB 40 MEQ PO (18:38)
[2025-07-04] MEDS: ONDANSETRON 4MG/2ML VIAL 4 MG IV (18:38)
--- NOTE | 2025-07-04 18:40 | PC.NURSE ---
sandwich and drink provided
--- NOTE | 2025-07-04 18:41 | PC.NURSE ---
notified of covid, only needs 1 set of blood cultures. lab notified
[2025-07-04 20:11] LABS: Troponin I 0.06 ng/ml (0.00-0.034)
--- NOTE | 2025-07-04 20:48 | ECG_ITS ---
APPROVED REPORT Exam: Resting ECG HR:75 bpm ECG Measurements Heart Rate 75 AXES FL 172 P 60 QRSd 106 QRS 15 QT 436 T 43 QTc 465 Conclusion SINUS RHYTHM MINIMAL ST DEPRESSION [0.025+ mV ST DEPRESSION] No STEMI Electronically signed by : THOMAS PALACIOS, 07/07/2025 06:51:56
[2025-07-04] MEDS: ASPIRIN 81MG CHEWABLE TABLET 324 MG PO (20:52)
--- NOTE | 2025-07-04 21:39 | PC.NURSE ---
Report called to TAMMIE Ocampo on [facility]
[2025-07-04 23:44] LABS: Troponin I 0.08 ng/ml (0.00-0.034)
[2025-07-05] VITALS (16 sets, daily range): BP systolic 103–129; BP diastolic 44–55; PULSE 56–80; RESP 16–18; TEMP 36.5–37.2; O2SAT 93–97; BMI 24.3
--- NOTE | 2025-07-05 00:33 | P.HP_ITS ---
<Statement entered by Lee Dubois MD - 07/05/25 16:13> Rounded on patient after nurse practitioner. Personally examined and interviewed patient. Agree with exam findings and care plan as documented. History of Present Illness *Admission Date: 07/04/25 *Reason for visit:: Generalized weakness *History of present illness: This is a 69-year-old female with a past medical history of hyperlipidemia PTSD, diabetes, depression, renal insufficiency who presents from [facility] for further evaluation of generalized weakness. She reports dizziness since waking this morning and has had progressive weakness throughout the day. She denies any fever, chest pain or shortness of breath. States that she just feels generally unwell. Emergency department workup notable for COVID-19 positive with a positive troponin levels 0.04 with uptrend to 0.06 now 0.08. EKG with some flattening of the ST segment in lead to 3 and aVF. Also notable to have elevated creatinine of 2.3 which is mildly up from baseline of 1.8. Potassium 3.3. Given her elevated troponin, Dr. Roberts was consulted and recommends therapeutic Lovenox with admission. She is admitted to hospital service at this time. [facility] Disclaimer: The information contained in this section may have been updated after the patient was seen, as this information can be updated by other users. Surgical History (Updated 11/19/23 @ 22:07 by Trudi Glez RN) Hx of hemorrhoidectomy Social History (Updated 11/19/23 @ 22:08 by Trudi Glez RN) Smoking Status: Current every day smoker tobacco type: cigarettes packs per day: 1 alcohol intake: never current occupational status: retired Travel in the last 8 weeks?: None housing: assisted Have you lived/traveled outside US in past 30 days?: No Contact w/someone who lives/traveled outside US past 30 days?: No Exposure to someone with infectious disease in past 14 days?: No Do you have a fever (greater than 100.4 F or 38 C)?: No Have you tested positive for COVID-19?: No Exposed to someone with COVID-19 in past 14 days?: No Do you have a sore throat?: No Do you have a cough?: No Do you have any weakness?: No Do you have any diarrhea?: No Are you experiencing any unusual bleeding?: No Do you have any muscle aches/pain?: No Do you have any abdominal pain?: No Are you experiencing loss of taste or smell?: No Other Medical History Have you received the Flu Vaccine for this season: No Have you received the Pneumonia Vaccine: No Review of Systems Review of Systems Review of systems:: pertinent systems reviewed and negative unless documented below Review of systems (narrative): Negative except for HPI Meds Home Medications and Allergies Home Medications ?Medication ?Instructions ?Recorded ?Confirmed ?Type atorvastatin 20 mg tablet (Lipitor) 20 mg PO DAILY 02/1211/20/23 History furosemide 40 mg tablet 40 mg PO DAILY 09/02/1910/26 History hydrochlorothiazide 12.5 mg capsule 12.5 mg PO DAILY 0 09/02/19 11/20/23 History mirtazapine 15 mg tablet 15 mg PO HS 09/02/19 4 History prazosin 2 mg capsule 2 mg PO HS 09/02/19 11/20/23 History sertraline 100 mg tablet 200 mg PO DAILY 01/01/21 History ergocalciferol (vitamin D2) 1,250 1,250 mcg PO WEEKLY 11/20/23 11/20/23 History mcg (50,000 unit) capsule (Vitamin D2) melatonin 5 mg tablet 5 mg PO HS 11/20/23 11/20/23 History oxybutynin chloride 10 mg 10 mg PO DAILY 11/20/2310/26 History tablet,extended release 24 hr paliperidone 6 mg tablet,extended 12 mg PO DAILY 11/1911/20/23 History release 24 hr quetiapine 100 mg tablet 100 mg PO HS 30 days #0 tabs 11/21/23 11/20/23 Rx cefuroxime axetil 500 mg tablet 500 mg PO BID 7 days # 14 tabs 11/23/23 Rx haloperidol 5 mg tablet 5 mg PO BID #14 tabs 4 Rx New Prescriptions to Start Prescriptions: Allergies Allergy/AdvReac Type Severity Reaction Status Date / Time latex Allergy Intermediate Rash Verified 01/01/21 11:20 Sulfa (Sulfonamide Allergy Intermediate Rash Verified 01/01/21 11:20 Antibiotics) Exam Data for Last 24 hours Vital signs and Labs for Last 24 Hours: Temp Pulse Resp BP Pulse Ox O2 Del Method 97.9 F 64 16 130/65 96 Room Air 07/04/25 22:16 07/04/25 22:16 07/04/25 22:16 07/04/25 22:16 07/04/25 22:16 07/04/25 22:16 Laboratory Results - last 24 hr 07/04/25 16:30: WBC 7.0, RBC 3.38 L, Hgb 9.1 L, Hct 28.6 L, MCV 84.6, MCH 26.9 L , MCHC 31.8, RDW 14.6, Plt Count 176, MPV 9.2, Neut % (Auto) 88.7 H, Lymph % (Auto) 3.1 L, Morton % (Auto) 6.4, Eos % (Auto) 1.3, Baso % (Auto) 0.1, Neut # (Auto) 6.2, Lymph # (Auto) 0.2 L, Morton # (Auto) 0.5, Eos # (Auto) 0.1, Baso # (Auto) 0.0, Total Counted 100, Neutrophils % (Manual) 83 H, Lymphocytes % (Manual) 11, Monocytes % (Manual) 4, Eosinophils % (Manual) 2, Platelet Estimate Normal, Hypochromasia 1+, Sodium 135 L, Potassium 3.3 L, Chloride 88 L, Carbon Dioxide 30, Anion Gap 20.3 H, BUN 54 H, Creatinine 2.30 H, Estimated Creat Clear 24, Estimated GFR 21 L, Est GFR ( Amer) 26 L, Glucose 134 H, Calcium 10.6 H, Phosphorus 3.2, Magnesium 1.9, Total Bilirubin 0.4, AST 18, ALT 13, Alkaline Phosphatase 181 H, Troponin I 0.04 H, NT-Pro-B Natriuret Pep 934 H, Total Protein 9.3 H D, Albumin 4.5, Globulin 4.8 H, Albumin/Globulin Ratio 0.9 L, TSH 1.23, HCV Ab DAVID w/Rflx PCR Qn Negative, HIV Ag/Ab Combo Qual Negative 07/04/25 16:50: SARS-CoV-2 (PCR) Detected A, Influenza Type A (PCR) Not detected, Influenza Type B (PCR) Not detected, RSV (PCR) Not detected, Rhinovirus (PCR) Not detected 07/04/25 19:37: Troponin I 0.06 H 12/09/25 23:11: Troponin I 0.08 H I & O for Last 24 hours: Intake & Output 07/02/25 07/03/25 07/04/25 07/05/25 23:59 23:59 23:59 23:59 Intake Total 1000 / 1000 Balance 1000 / 1000 Weight 54.839 kg Constitutional Constitutional: no acute distress *Routine HEENT Exam Head: Present normocephalic Eye: Present EOMI and PERRL ENT: Present mucous membranes moist *Routine Neck Exam Neck: Present supple; Absent lymphadenopathy *Routine Respiratory Exam Respiratory: Present CTA bilaterally *Routine Cardiovascular Exam Cardiovascular: Present RRR *Routine Abdominal Exam Abdominal: Present soft and normoactive bowel sounds; Absent tenderness *Routine Rectal Exam Rectal:: deferred *Routine Genitalia Exam Genitalia:: deferred *Routine Extremities Exam Extremities: Absent cyanosis, clubbing or edema *Routine Skin Exam Skin: Present warm; Absent rash *Routine Neurological Exam Neurological: Present alert and oriented X3 Assessment and Plan *Assessment and plan (1) Troponin level elevated: Status: Acute Category: Medical Code(s): R79.89 - Other specified abnormal findings of blood chemistry (2) COVID: Status: Acute Category: Medical Code(s): U07.1 - COVID-19 (3) Diabetes mellitus type II, controlled: Status: Acute Category: Medical Code(s): E11.9 - Type 2 diabetes mellitus without complications (4) HLD (hyperlipidemia): Status: Acute Qualifiers: Hyperlipidemia type: unspecified Qualified Code(s): E78.5 - Hyperlipidemia, unspecified Category: Medical Code(s): E78.5 - Hyperlipidemia, unspecified (5) Hypertension: Status: Acute Qualifiers: Hypertension type: essential hypertension Qualified Code(s): I10 - Essential (primary) hypertension Category: Medical Code(s): I10 - Essential (primary) hypertension (6) Major depressive disorder with psychotic features: Status: Acute Category: Medical Code(s): F32.3 - Major depressive disorder, single episode, severe with psychotic features Plan #COVID-19 Presents with generalized weakness, found to be positive for COVID-19. Denies any shortness of breath or chest pain. Chest x-ray without pneumonia. Will defer antibiotic therapy at this time. Initiate remdesivir with pharmacy consult On room air oxygenating well. Will defer steroids at this time #Elevated troponin Likely nonischemic myocardial injury secondary to COVID. Prior EKG with ST and T wave abnormalities. Today with some flattening of II, III and aVF. Continue therapeutic Lovenox twice daily Cardiology consult in a.m., appreciate recommendations Echocardiogram in a.m. Continue home atorvastatin #Hypertension Continue home medications once reconciled #Renal insufficiency #CKD stage IIIa Of a creatinine of 2.3 with a baseline of around 2 (October 2023) Does not meet criteria for KUSUM at this time. Does likely have mild volume depletion given COVID. Received IV fluids in the Emergency Department with improvement in generalized weakness. Also was noted to have soft blood pressure in the emergency department which also improved after IV fluid administration. #HLD Continue home atorvastatin 20 mg daily
[2025-07-05] MEDS: [UNRECOGNIZED DRUG - REMARK] 1 EACH NOTAPPLIC (00:42)
[2025-07-05] MEDS: REMDESIVIR 200 MG in 0.9 % SODIUM CHLORIDE 250 ML 250 MG IV (02:06)
[2025-07-05] MEDS: 0.9 % SODIUM CHLORIDE 1000ML 1,000 ML 75 ML IV ×2 (02:06→23:36)
--- NOTE | 2025-07-05 06:49 | ECG_ITS ---
APPROVED REPORT Exam: Resting ECG HR:62 bpm ECG Measurements Heart Rate 62 AXES WA 193 P 70 QRSd 109 QRS 22 QT 430 T 43 QTc 436 Conclusion SINUS RHYTHM MODERATE ST DEPRESSION [0.05+ mV ST DEPRESSION] ABNORMAL ECG UNCONFIRMED REPORT Electronically signed by : Trevin uYng MD 07/05/2025 08:31:07
[2025-07-05 07:23] LABS: INR 1.12 (0.9-1.1); Prothrombin Time 12.3 seconds (10.1-12.5)
[2025-07-05 07:39] LABS: Hematocrit 21.7 % (37.0-47.0); Immature Granulocytes % 0.8 %; Mean Corpuscular HGB Conc 30.9 g/dL (31.8-35.4); Mean Corpuscular Hemoglobin 26.9 pg (27.0-31.2); Mean Corpuscular Volume 87.1 fl (81-99); Nucleated Red Blood Cells % 0 %; Platelet Count 131 K/mm3 (142-424); Red Blood Count 2.49 M/mm3 (4.20-5.40); Red Cell Distribution Width-SD 47.8 fL; White Blood Count 5.0 K/mm3 (4.8-10.8)
[2025-07-05 08:20] LABS: Hemoglobin 6.9 g/dL (12.2-16.2)
--- NOTE | 2025-07-05 09:25 | CA_ITS ---
APPROVED REPORT EXAM: Comprehensive 2D, Doppler, and color-flow Echocardiogram Managed Care Director: SEBAS Huang, RVS Ht: 4 ft 11 in Wt: 120lbs BSA: 1.48 BP: 130/65 mmHg Indications: COVID, Weakness, Smoker,elevated troponin, HTN, HLD, DM 2D Dimensions Left Atrium 2.83 cm LA Volume 83.80 mL LA Volume Index 55.10 mL/m2 (M/F) 16-34 M-Mode Dimensions RVDd 2.29 cm (0.9-2.6) LA Diam 3.91 cm (1.9-4.0) LVDd 5.59 cm (3.5-5.7) LVDs 3.38 cm (3.5-5.7) IVSd 1.01 cm (0.6-1.1) PWd 0.93 cm (0.6-1.1) EF (Teich) 69.40% EPSs 0.93 cm FS 39.50% EDV (Teich) 153.00 mL TAPSE 2.13 (<1.7) ESV (Teich) 46.80 mL LV Diastology E Decel Time 147 (160-240 msec) E/A Ratio 0.90 MED A' 10.50 cm/s LAT A' 10.20 cm/s Aortic Valve DEEJAY Index 1.25 cm2/m2 AoV Peak Tad. 220.0 (50-130 cm/s) AI PHT 452.00 ms AO Peak GR. 19.40 mmHg AO Mean GR. 9.60 (<5 mmHg) AO VTI 46.1 (18-25 cm) DEEJAY (VTI) 1.90 (2.5-4.5 cm2) Mitral Valve MV A Velocity 109.0 (40-130 cm/s) E/A Ratio 0.90 Pulmonary Valve PV Peak Velocity 102.0 (50-150 cm/s) Tricuspid Valve TR P. Velocity 212.00 cm/s RAP Estimate 10.00 mmHg RVSP 28.00 mmHg Left Ventricle The left ventricle is normal size. LVEDD=5.0 cm. LVESD=3.9 cm. Left ventricular systolic function is normal. The left ventricular ejection fraction is within the normal range. There is increased left ventricular wall thickness. There is normal LV segmental wall motion. Transmitral Doppler flow pattern suggests impaired LV relaxation. LVEF is 55% Right Ventricle The right ventricle is normal size. The right ventricular systolic function is normal. Atria The left atrium size is normal. The right atrium size is normal. There is no color Doppler evidence of interatrial shunt. Aortic Valve The aortic valve is mildly thickened, appears morphologically abnormal - cannot rule out bicuspid AV. Mild aortic stenosis is present. DEEJAY by continuity equation is 1.8 cm2. Peak velocity 2.2 m/s. Mean AV gradient 11 mmHg. Max AV gradient 20 mmHg. Severe aortic regurgitation is present. Mitral Valve The mitral valve is mildly thickened. No evidence of mitral valve stenosis. Mild mitral regurgitation is present. Tricuspid Valve The tricuspid valve leaflets are thin and pliable. Trace tricuspid regurgitation. There is insufficient TR jet to estimate RVSP. Pulmonic Valve The pulmonary valve is grossly normal in structure. Trace pulmonic valve regurgitation is present. Great Vessels The aortic root is normal in size. IVC is normal in size and collapses >50% with inspiration. Pericardium There is no pericardial effusion. Other Information Study Quality: Fair Conclusion Normal biventricular size and systolic function ( LVEDD=5.0 cm. LVESD=3.9 cm). AV is mildly thickened, appears morphologically abnormal - cannot rule out bicuspid AV. Severe AR. Mild (Mild aortic stenosis is present. DEEJAY by continuity equation is 1.8 cm2. Peak velocity 2.2 m/s. Mean AV gradient 11 mmHg. Max AV gradient 20 mmHg). Electronically signed by : Alison Peterson MD 07/05/2025 13:06:08
[2025-07-05 09:42] LABS: Troponin I 0.06 ng/ml (0.00-0.034)
--- NOTE | 2025-07-05 10:01 | HMH.PTEV ---
Physical Therapy Evaluation Rehab PT IP Evaluation Start: 07/05/25 07:43 Freq: ONCE Status: Active Protocol: Document 07/05/25 09:57 ROSALINE (Rec: 07/05/25 10:01 ROSALINE [id number]) Subjective/History History History Per H&P: This is a 69-year-old female with a past medical history of hyperlipidemia PTSD, diabetes, depression, renal insufficiency who presents from [facility] for further evaluation of generalized weakness. She reports dizziness since waking this morning and has had progressive weakness throughout the day. She denies any fever, chest pain or shortness of breath. States that she just feels generally unwell. Emergency department workup notable for COVID-19 positive with a positive troponin levels 0.04 with uptrend to 0.06 now 0.08. EKG with some flattening of the ST segment in lead to 3 and aVF. Also notable to have elevated creatinine of 2.3 which is mildly up from baseline of 1.8. Potassium 3.3. Given her elevated troponin, Dr. Roberts was consulted and recommends therapeutic Lovenox with admission. She is admitted to hospital service at this time. Subjective Subjective PLOF: IND with mobility using a RW. HOME: Lives at [facility] independent living [facility]. [facility] How much help from another person do you currently need... Turning from your None back to your side while in a flat bed without using bedrails? Moving from lying on None back to sitting on the side of a flat bed without using bedrails? Moving to and from a None bed to a chair ( including a wheelchair)? Standing up from a None chair using your arms? (e.g., wheelchair, bedside chair) Walking in hospital None room? Climbing 3-5 steps A little with a railing? Mobility Score 23 Mobility Level [facility] Mobility 7 Walk 25 feet or more Mobility Calculator Rehab PT IP Eval Objective Appearance Patient Behavior Appropriate,Cooperative Patient Orientation Person Difficulty following none instructions Speech Pattern Clear,Appropriate Ambulation Patient Able to Yes Ambulate Ambulation Observation IP General Gait Decrease Stride Lngth (R),Decrease Stride Lngth (L) Pattern Observation Ambulation Distance 30 (feet) Ambulation Assistive Rolling Walker Device Ambulation Ability Supervision/Stand by Balance Ability to Arise Able, uses arms to help Sitting Balance Steady, safe Standing Balance Steady, wide stance Dynamic Sitting Good Balance Ability Dynamic Standing Good Balance Ability Transfers Bed Transfer Ability Independent Sit to Stand Bed Supervision/Stand by Transfer Ability Rehab PT IP prob,goals,plan Problems Date of Evaluation: 07/05/25 Rehab Potential Rehab Potential Innapropriate for Skilled Therapy Discharge Plan PT Discharge Plan Pt appears to be at her baseline mobility and is not appropriate for skilled acute level PT at this time. Eval Complexity Eval Charge Codes 82892 - Moderate Complexity PHYSICIAN CERTIFICATION: I certify the specified therapy services for Indigo Soliman are required, authorized, and reviewed every 30 days.
[2025-07-05 10:26] LABS: Alanine Aminotransferase 7 U/L (12-78); Albumin Level 3.1 g/dl (3.5-5.0); Alkaline Phosphatase 135 U/L (38-126); Aspartate Amino Transferase 13 U/L (14-36); Bilirubin,Direct 0.1 mg/dl (0.0-0.4); Bilirubin,Indirect 0.1 mg/dL (0.0-0.9); Bilirubin,Total 0.2 mg/dl (0.2-1.3); Bilirubin,Unconjugated 0.1 mg/dL (0.0-1.1); Total Protein,Serum 6.2 g/dl (6.3-8.2)
--- NOTE | 2025-07-05 10:34 | HMH.OTEV ---
OT Evaluation Rehab OT IP Evaluation Start: 07/05/25 07:43 Freq: ONCE Status: Active Protocol: Document 07/05/25 10:30 [facility] (Rec: 07/05/25 10:33 [facility] [id number]) Rehab OT IP Assessment Subjective History Per H&P: This is a 69-year-old female with a past medical history of hyperlipidemia PTSD, diabetes, depression, renal insufficiency who presents from [facility] for further evaluation of generalized weakness. She reports dizziness since waking this morning and has had progressive weakness throughout the day. She denies any fever, chest pain or shortness of breath. States that she just feels generally unwell. Emergency department workup notable for COVID-19 positive with a positive troponin levels 0.04 with uptrend to 0.06 now 0.08. EKG with some flattening of the ST segment in lead to 3 and aVF. Also notable to have elevated creatinine of 2.3 which is mildly up from baseline of 1.8. Potassium 3.3. Given her elevated troponin, Dr. Roberts was consulted and recommends therapeutic Lovenox with admission. She is admitted to hospital service at this time. [ End ] Subjective PLOF: IND with functional transfers using a RW. HOME: Lives at [facility] independent living facility. Pt claims normally she is independent with all ADLs. She is dependent upon staff for completion of IADLs. Pt no longer drives. Objective Patient Orientation Person,Place,Birthday Right Upper WFL Extremity Gross ROM Left Upper Extremity WFL Gross ROM Bed Mobility bed mobility-scooting,bed mobility - supine/sit Assist Level Supervision/Stand by Transfer Training Sit/Stand Transfer Assist Level Supervision/Stand by Lower Body Dressing Standby Assistance Ability Rehab OT IP prob,goals,plan Problems Date of Evaluation: 07/05/25 Rehab Potential Rehab Potential Innapropriate for Skilled Therapy Discharge Plan OT Discharge Plan Pt appears to be at her baseline with functional transfers and ADL independence. Pt can return back to [facility] once she is medically stable per physician. Eval Complexity Eval Charge Codes 40601 - Moderate Complexity PHYSICIAN CERTIFICATION: I certify the specified therapy services for Indigo Soliman are required, authorized, and reviewed every 30 days.
[2025-07-05 10:51] LABS: Anion Gap 13.0 mEq/L (5-15); Blood Urea Nitrogen 57 mg/dl (7-17); Calcium 8.9 mg/dl (8.4-10.2); Carbon Dioxide 26 mmol/L (22.0-30.0); Chloride 98 mmol/L (98-107); Cholesterol 97 mg/dl (140-200); Creatinine Clearance Estimated 22 mL/min (50-200); Creatinine,Serum 2.10 mg/dl (0.52-1.04); Estimated Glomerular Filt Rate 23 ml/min (>60); GFR (African American) 28 ML/MIN (>60); Glucose 108 mg/dl (74-100); HDL Cholesterol 32 mg/dl (40-60); Magnesium 1.6 mg/dl (1.6-2.3); Phosphorous 4.2 mg/dl (2.5-4.5); Potassium 4.0 mmoL/L (3.5-5.1); Sodium 133 mmol/L (136-145); Triglycerides 59 mg/dl (30-150)
--- NOTE | 2025-07-05 11:44 | SW/DCPLANNER ---
Addendum entered by Jessica Jean 07/06/25 11:00: I have updated Sofi rodas/ Son Valencia that patient will return today. Addendum entered by Jessica Jean 07/05/25 14:59: I have updated Sofi rodas/ Son Valencia that patient will not return till tomorrow. Original Note: Patient currently resides at [facility]. Per MD pending Cardiology consult patient could possibly return today. PT/OT evaluated patient this AM and they stated that patient is safe to return PC. I have updated Sofi rodas/ Son Valencia regarding plan. CM will continue to follow up.
--- NOTE | 2025-07-05 13:01 | P.CONPHA_ITS ---
Pharmacy Intervention Comments: MEDICATION RECONCILIATION COMPLETED ON PATIENT USING MAR [facility]. -LINDA TAVAREZ, RANDELLD
--- NOTE | 2025-07-05 13:01 | HMH.PHAINT1 ---
Pharmacy Intervention Comments: MEDICATION RECONCILIATION COMPLETED ON PATIENT USING MAR FROM [facility]. -LINDA TAVAREZ, RANDELLD
--- NOTE | 2025-07-05 13:45 | EXP.CARD.CON ---
History of Present Illness History of Present Illness Consult date: 07/05/25 Requesting physician: Lee Dubois Chief complaint: Weakness History of present illness: This is a 69-year-old female who presented to the emergency department from [facility] for further evaluation of generalized weakness. She reports being dizzy since waking up on the day of admission and just feeling so weak throughout the day. She denied any chest pain or pressure. She denied any shortness of breath or edema. She denied any fever, chills, nausea, vomiting, diarrhea. Upon arrival to the emergency department the patient was found to be positive for COVID-19 and had a slight elevation in her troponin. The patient does have chronic kidney disease and her creatinine was around 2.3. She was referred for admission due to the COVID-19 and slightly elevated troponin [facility] Disclaimer: The information contained in this section may have been updated after the patient was seen, as this information can be updated by other users. Medical History (Updated 07/05/25 @ 13:47 by Za Ortiz APRN) Troponin level elevated COVID HLD (hyperlipidemia) Hypertension Surgical History (Updated 11/19/23 @ 22:07 by Trudi Glez RN) Hx of hemorrhoidectomy Social History (Updated 11/19/23 @ 22:08 by Trudi Glez RN) Smoking Status: Current every day smoker tobacco type: cigarettes packs per day: 1 alcohol intake: never current occupational status: retired Travel in the last 8 weeks?: None housing: residential Have you lived/traveled outside [place] in past 30 days?: No Contact w/someone who lives/traveled outside US past 30 days?: No Exposure to someone with infectious disease in past 14 days?: No Do you have a fever (greater than 100.4 F or 38 C)?: No Have you tested positive for COVID-19?: No Exposed to someone with COVID-19 in past 14 days?: No Do you have a sore throat?: No Do you have a cough?: No Do you have any weakness?: No Do you have any diarrhea?: No Are you experiencing any unusual bleeding?: No Do you have any muscle aches/pain?: No Do you have any abdominal pain?: No Are you experiencing loss of taste or smell?: No Review of Systems Review of Systems Review of systems:: pertinent systems reviewed and negative unless documented below Constitutional Constitutional: Reports system reviewed and no additional complaints, except as documented, Reports fatigue, Reports poor appetite, Reports lethargy and Reports weakness Eyes Eyes: Reports system reviewed and no additional complaints, except as documented ENT Ears, Nose, Mouth, and Throat: Reports system reviewed and no additional complaints, except as documented *Cardiovascular Cardiovascular: Reports system reviewed and no additional complaints, except as documented *Respiratory Respiratory: Reports system reviewed and no additional complaints, except as documented *Gastrointestinal Gastrointestinal: Reports system reviewed and no additional complaints, except as documented *Musculoskeletal Musculoskeletal: Reports system reviewed and no additional complaints, except as documented Integumentary/Breasts Skin/Breast: Reports system reviewed and no additional complaints, except as documented *Neurologic Neurologic: Reports system reviewed and no additional complaints, except as documented and Reports weakness Psychiatric Psychiatric: Reports system reviewed and no additional complaints, except as documented Endocrine Endocrine: Reports system reviewed and no additional complaints, except as documented and Reports fatigue Hematologic/Lymphatic Hematologic/Lymphatic: Reports system reviewed and no additional complaints, except as documented Allergic/Immunologic Allergic/Immunologic: Reports system reviewed and no additional complaints, except as documented Exam Data for Last 24 hours Vital signs and Labs for Last 24 Hours: Temp Pulse Resp BP Pulse Ox O2 Del Method 98.9 F 72 18 112/49 L 93 L Room Air 07/05/25 13:30 07/05/25 13:30 07/05/25 13:30 07/05/25 13:30 07/05/25 13:30 07/05/25 12:01 Laboratory Results - last 24 hr 07/04/25 16:30: WBC 7.0, RBC 3.38 L, Hgb 9.1 L, Hct 28.6 L, MCV 84.6, MCH 26.9 L, MCHC 31.8, RDW 14.6, Plt Count 176, MPV 9.2, Neut % (Auto) 88.7 H, Lymph % (Auto) 3.1 L, [place] % (Auto) 6.4, Eos % (Auto) 1.3, Baso % (Auto) 0.1, Neut # (Auto) 6.2, Lymph # (Auto) 0.2 L, [place] # (Auto) 0.5, Eos # (Auto) 0.1, Baso # (Auto) 0.0, Total Counted 100, Neutrophils % (Manual) 83 H, Lymphocytes % (Manual) 11, Monocytes % (Manual) 4, Eosinophils % (Manual) 2, Platelet Estimate Normal, Hypochromasia 1+, Sodium 135 L, Potassium 3.3 L, Chloride 88 L, Carbon Dioxide 30, Anion Gap 20.3 H, BUN 54 H, Creatinine 2.30 H, Estimated Creat Clear 24, Estimated GFR 21 L, Est GFR ( Amer) 26 L, Glucose 134 H, Calcium 10.6 H, Phosphorus 3.2, Magnesium 1.9, Total Bilirubin 0.4, AST 18, ALT 13, Alkaline Phosphatase 181 H, Troponin I 0.04 H, NT-Pro-B Natriuret Pep 934 H, Total Protein 9.3 H D, Albumin 4.5, Globulin 4.8 H, Albumin/Globulin Ratio 0.9 L, TSH 1.23, HCV Ab DAVID w/Rflx PCR Qn Negative, HIV Ag/Ab Combo Qual Negative 07/04/25 16:50: SARS-CoV-2 (PCR) Detected A, Influenza Type A (PCR) Not detected, Influenza Type B (PCR) Not detected, RSV (PCR) Not detected, Rhinovirus (PCR) Not detected 07/04/25 19:37: Troponin I 0.06 H 07/04/25 23:11: Troponin I 0.08 H 07/05/25 05:49: WBC 5.0 D, RBC 2.49 L D, Hgb 6.9 L D, Hct 21.7 L, MCV 87.1, MCH 26.9 L, MCHC 30.9 L, RDW 14.9, Plt Count 131 L D, MPV 9.4, Neut % (Auto) 73.7, Lymph % (Auto) 16.3, [place] % (Auto) 7.8, Eos % (Auto) 1.2, Baso % (Auto) 0.2, Neut # (Auto) 3.7, Lymph # (Auto) 0.8, [place] # (Auto) 0.4, Eos # (Auto) 0.1, Baso # (Auto) 0.0, PT 12.3, INR 1.12 H, Sodium 133 L, Potassium 4.0 D, Chloride 98, Carbon Dioxide 26, Anion Gap 13.0, BUN 57 H, Creatinine 2.10 H, Estimated Creat Clear 22, Estimated GFR 23 L, Est GFR ( Amer) 28 L, Glucose 108 H, Calcium 8.9, Phosphorus 4.2 D, Magnesium 1.6 D, Total Bilirubin 0.2, Direct Bilirubin 0.1, Conjugated Bilirubin 0.0, Indirect Bilirubin 0.1, Unconjugated Bilirubin 0.1, AST 13 L D, ALT 7 L D, Alkaline Phosphatase 135 H, Troponin I 0.06 H, Total Protein 6.2 L D, Albumin 3.1 L D, Triglycerides 59, Cholesterol 97 L, LDL Cholesterol Direct 54.31 L, VLDL Cholesterol 12, HDL Cholesterol 32 L, Cholesterol/HDL Ratio 3.0 07/05/25 06:44: Blood Type Confirm O Positive 07/05/25 10:05: Blood Type O Positive, Antibody Screen Negative, Crossmatch (AHG) See Detail I & O for Last 24 hours: Intake & Output 07/02/25 07/03/25 07/04/25 07/05/25 23:59 23:59 23:59 23:59 Intake Total 1999 550 / 550 Output Total 300 / 300 Balance 1999 250 / 250 Weight 120 lb 14.4 oz 120 lb 14.4 oz Constitutional Constitutional: no acute distress and average body habitus *Routine HEENT Exam Head: Present normocephalic and atraumatic ENT: Present mucous membranes moist *Routine Neck Exam Neck: Present supple, full ROM and normal carotid upstroke; Absent JVD, carotid bruit or lymphadenopathy *Routine Respiratory Exam Respiratory: Present CTA bilaterally, normal respiratory effort, able to speak in complete sentences and symmetric chest movement *Routine Cardiovascular Exam Cardiovascular: Present RRR, Normal S1 and Normal S2; Absent murmur or gallop *Routine Abdominal Exam Abdominal: Present soft and normoactive bowel sounds; Absent tenderness, distended or organomegaly *Routine Extremities Exam Extremities: Present full ROM, pulses intact and normal capillary refill; Absent cyanosis, clubbing or edema *Routine Skin Exam Skin: Present intact and warm; Absent erythema *Routine Neurological Exam Neurological: Present alert, oriented X3 and CN II-XII intact; Absent sensory deficit or motor deficit Routine Psychiatric Exam Psychiatric: Present normal affect Meds Home Medications and Allergies Home Medications ?Medication ?Instructions ?Recorded ?Confirmed ?Type atorvastatin 20 mg tablet (Lipitor) 20 mg PO DAILY 09/02/19 07/05/25 History furosemide 40 mg tablet 40 mg PO DAILY 09/02/19 07/05/25 History hydrochlorothiazide 12.5 mg capsule 12.5 mg PO DAILY 09/02/19 07/05/25 History prazosin 2 mg capsule 2 mg PO HS 09/02/19 07/05/25 History sertraline 100 mg tablet 200 mg PO DAILY 01/01/21 07/05/25 History ergocalciferol (vitamin D2) 1,250 1,250 mcg PO WEEKLY 11/20/23 07/05/25 History mcg (50,000 unit) capsule (Vitamin D2) oxybutynin chloride 10 mg 10 mg PO DAILY 11/20/23 07/05/25 History tablet,extended release 24 hr paliperidone 6 mg tablet,extended 12 mg PO DAILY 11/20/23 07/05/25 History release 24 hr cyanocobalamin (vitamin B-12) 1,000 mcg sublingual DAILY 07/05/25 07/05/25 History 1,000 mcg sublingual tablet ferrous sulfate 325 mg (65 mg 325 mg PO MOWEFR 07/05/25 07/05/25 History iron) tablet (FeroSul) haloperidol 5 mg tablet 7.5 mg PO TID 07/05/25 History melatonin 10 mg tablet 10 mg PO HS 07/05/25 07/05/25 History New Prescriptions to Start Prescriptions: Allergies Allergy/AdvReac Type Severity Reaction Status Date / Time latex Allergy Intermediate Rash Verified 01/01/21 11:20 Sulfa (Sulfonamide Allergy Intermediate Rash Verified 01/01/21 11:20 Antibiotics) Assessment and Plan *Assessment and plan (1) Troponin level elevated: Status: Acute Category: Medical Code(s): R79.89 - Other specified abnormal findings of blood chemistry (2) COVID: Status: Acute Category: Medical Code(s): U07.1 - COVID-19 (3) Weakness: Status: Acute Category: Medical Code(s): R53.1 - Weakness (4) HLD (hyperlipidemia): Status: Acute Qualifiers: Hyperlipidemia type: unspecified Qualified Code(s): E78.5 - Hyperlipidemia, unspecified Category: Medical Code(s): E78.5 - Hyperlipidemia, unspecified (5) Hypertension: Status: Acute Qualifiers: Hypertension type: essential hypertension Qualified Code(s): I10 - Essential (primary) hypertension Category: Medical Code(s): I10 - Essential (primary) hypertension Plan Plan: 1. The patient is admitted to the hospital after testing positive for COVID-19. She has been started on medications for this. Will defer to the hospitalist. 2. The patient did have a slight elevation in her troponin which is most likely a type II non-STEMI from her COVID-19 infection. No plans for invasive left cardiac catheterization. 3. Patient would benefit from outpatient ischemic evaluation once she is discharged from the hospital. 4. Her blood pressure is well-controlled. Continue HCTZ. 5. Her LDL goal is less than 55. Her LDL is 54. She is on a statin. 6. Her echocardiogram shows a normal ejection fraction. 7. No further recommendations at this time from a cardiac standpoint. The patient can follow-up in cardiology clinic in 1 to 2 weeks on an outpatient basis when she is discharged from the hospital with plans for outpatient ischemic evaluation. Thank you for the opportunity to help participate in the care of this patient. All recommendations and orders are per Dr. Mullins.
[2025-07-05 16:33] LABS: Hematocrit 24.8 % (37.0-47.0)
--- NOTE | 2025-07-05 16:42 | P.PN_ITS ---
Subjective *Date: 07/05/25 *Time: 17:30 Interval history: Still feeling quite weak and fatigued. Weak voice on exam. On room air. Afebrile. No nausea or vomiting. Medical Exam Vital signs and Labs for Last 24 Hours: Vital Signs Temp Pulse Pulse Resp BP BP Pulse Ox 07/05/25 16:00 98.6 F 64 16 128/55 L 97 07/05/25 15:30 97.8 F 66 18 119/47 L 94 L 07/05/25 15:15 97.8 F 62 18 118/46 L 95 07/05/25 14:15 98 F 70 18 116/47 L 94 L 07/05/25 14:00 97.9 F 68 18 123/55 L 95 07/05/25 13:45 97.8 F 72 18 112/49 L 95 07/05/25 13:30 98.9 F 72 18 112/49 L 93 L 07/05/25 13:25 98.6 F 77 18 108/45 L 93 L 07/05/25 13:20 98.6 F 71 18 111/54 L 94 L 07/05/25 13:15 98.6 F 74 18 112/47 L 94 L 07/05/25 13:09 98.4 F 68 18 118/50 L 95 07/05/25 12:01 07/05/25 12:00 60 07/05/25 12:00 97.8 F 60 16 108/44 L 96 07/05/25 11:00 07/05/25 09:00 07/05/25 08:00 70 07/05/25 08:00 07/05/25 08:00 98.1 F 69 16 103/47 L 96 07/05/25 07:00 07/05/25 05:00 07/05/25 04:00 97.8 F 56 L 16 104/44 L 97 07/05/25 04:00 80 07/05/25 03:00 07/05/25 01:00 07/05/25 00:00 70 07/05/25 00:00 97.7 F 67 17 103/50 L 95 07/04/25 23:00 07/04/25 22:16 97.9 F 64 16 130/65 96 07/04/25 22:15 65 07/04/25 21:40 98.6 F 66 18 114/53 L 07/04/25 21:30 07/04/25 21:00 74 99/46 L 96 07/04/25 20:54 75 18 95/52 L 95 07/04/25 20:43 96 H 95/52 L 93 L 07/04/25 20:30 77 94/45 L 92 L 07/04/25 20:01 87 104/39 L 93 L 07/04/25 19:30 82 97/48 L 94 L 07/04/25 19:12 104 H 18 99/46 L 96 07/04/25 19:00 102 H 99/46 L 94 L 07/04/25 17:30 100 H 128/60 94 L 07/04/25 17:00 104 H 108/85 L 92 L O2 Del Method 07/05/25 16:00 Room Air 07/05/25 15:30 07/05/25 15:15 07/05/25 14:15 07/05/25 14:00 07/05/25 13:45 07/05/25 13:30 07/05/25 13:25 07/05/25 13:20 07/05/25 13:15 07/05/25 13:09 07/05/25 12:01 Room Air 07/05/25 12:00 07/05/25 12:00 Room Air 07/05/25 11:00 Room Air 07/05/25 09:00 Room Air 07/05/25 08:00 07/05/25 08:00 Room Air 07/05/25 08:00 Room Air 07/05/25 07:00 Room Air 07/05/25 05:00 Room Air 07/05/25 04:00 Room Air 07/05/25 04:00 07/05/25 03:00 Room Air 07/05/25 01:00 Room Air 07/05/25 00:00 07/05/25 00:00 Room Air 07/04/25 23:00 Room Air, Nasal Cannula 07/04/25 22:16 Room Air 07/04/25 22:15 07/04/25 21:40 Room Air 07/04/25 21:30 Room Air 07/04/25 21:00 07/04/25 20:54 Room Air 07/04/25 20:43 07/04/25 20:30 07/04/25 20:01 07/04/25 19:30 07/04/25 19:12 Room Air 07/04/25 19:00 07/04/25 17:30 07/04/25 17:00 Intake and Output 07/05/25 07/05/25 07/05/25 07:59 15:59 23:59 Intake Total 250 / 1100 850 / 1100 Output Total 300 / 1900 0 / 1900 1600 / 1900 Balance -50 / -800 850 / -800 -1600 / -800 Intake: Intake, Oral Amount 600 / 600 Intake, Total IV Amount 250 / 250 Remdesivir 200 mg In 0.9 % 250 / 250 Sodium Chloride 250 ml @ 250 mls/hr IV ONCE ONE Rx#:[id number] Intake (Blood Product) Amt 250 / 250 Red Blood Cells Unit 250 / 250 [id number] Output: Output, Urine Amount 300 / 1900 0 / 1900 1600 / 1900 Other: Number of Voids 0 2 Number of Unmeasured Voids 0 0 Weight 54.839 kg Patient Weight 07/05/25 23:59 Weight 54.839 kg Laboratory Results - last 24 hr 07/04/25 16:30: WBC 7.0, RBC 3.38 L, Hgb 9.1 L, Hct 28.6 L, MCV 84.6, MCH 26.9 L , MCHC 31.8, RDW 14.6, Plt Count 176, MPV 9.2, Neut % (Auto) 88.7 H, Lymph % (Auto) 3.1 L, [place] % (Auto) 6.4, Eos % (Auto) 1.3, Baso % (Auto) 0.1, Neut # (Auto) 6.2, Lymph # (Auto) 0.2 L, [place] # (Auto) 0.5, Eos # (Auto) 0.1, Baso # (Auto) 0.0, Total Counted 100, Neutrophils % (Manual) 83 H, Lymphocytes % (Manual) 11, Monocytes % (Manual) 4, Eosinophils % (Manual) 2, Platelet Estimate Normal, Hypochromasia 1+, Sodium 135 L, Potassium 3.3 L, Chloride 88 L, Carbon Dioxide 30, Anion Gap 20.3 H, BUN 54 H, Creatinine 2.30 H, Estimated Creat Clear 24, Estimated GFR 21 L, Est GFR ( Amer) 26 L, Glucose 134 H, Calcium 10.6 H, Phosphorus 3.2, Magnesium 1.9, Total Bilirubin 0.4, AST 18, ALT 13, Alkaline Phosphatase 181 H, Troponin I 0.04 H, NT-Pro-B Natriuret Pep 934 H, Total Protein 9.3 H D, Albumin 4.5, Globulin 4.8 H, Albumin/Globulin Ratio 0.9 L, TSH 1.23, HCV Ab DAVID w/Rflx PCR Qn Negative, HIV Ag/Ab Combo Qual Negative 07/04/25 16:50: SARS-CoV-2 (PCR) Detected A, Influenza Type A (PCR) Not detected, Influenza Type B (PCR) Not detected, RSV (PCR) Not detected, Rhinovirus (PCR) Not detected 07/04/25 19:37: Troponin I 0.06 H 07/04/25 23:11: Troponin I 0.08 H 07/05/25 05:49: WBC 5.0 D, RBC 2.49 L D, Hgb 6.9 L D, Hct 21.7 L, MCV 87.1, MCH 26.9 L, MCHC 30.9 L, RDW 14.9, Plt Count 131 L D, MPV 9.4, Neut % (Auto) 73.7, Lymph % (Auto) 16.3, [place] % (Auto) 7.8, Eos % (Auto) 1.2, Baso % (Auto) 0.2, Neut # (Auto) 3.7, Lymph # (Auto) 0.8, [place] # (Auto) 0.4, Eos # (Auto) 0.1, Baso # (Auto) 0.0, PT 12.3, INR 1.12 H, Sodium 133 L, Potassium 4.0 D, Chloride 98, Carbon Dioxide 26, Anion Gap 13.0, BUN 57 H, Creatinine 2.10 H, Estimated Creat Clear 22, Estimated GFR 23 L, Est GFR ( Amer) 28 L, Glucose 108 H, Calcium 8.9, Phosphorus 4.2 D, Magnesium 1.6 D, Total Bilirubin 0.2, Direct Bilirubin 0.1, Conjugated Bilirubin 0.0, Indirect Bilirubin 0.1, Unconjugated Bilirubin 0.1, AST 13 L D, ALT 7 L D, Alkaline Phosphatase 135 H, Troponin I 0.06 H, Total Protein 6.2 L D, Albumin 3.1 L D, Triglycerides 59, Cholesterol 97 L, LDL Cholesterol Direct 54.31 L, VLDL Cholesterol 12, HDL Cholesterol 32 L, Cholesterol/HDL Ratio 3.0 07/05/25 06:44: Blood Type Confirm O Positive 07/05/25 10:05: Blood Type O Positive, Antibody Screen Negative, Crossmatch (AHG) See Detail I & O for Labs for Last 24 Hours: Intake & Output 07/02/25 07/03/25 07/04/25 07/05/25 23:59 23:59 23:59 23:59 Intake Total 1999 1100 / 1100 Output Total 1900 / 1900 Balance 1999 -800 / -800 Weight 54.839 kg 54.839 kg Constitutional: Present no acute distress, average body habitus, chronically ill appearing and cooperative Head: Present atraumatic and normocephalic ENT: Present normal exam Respiratory: Present normal respiratory effort; Absent rhonchi, wheezes or crackles Cardiac: Present Reg Rate and Rhythm GI: Present soft and normal bowel sounds; Absent distention, tenderness or rebound Extremities: Present normal inspection, full ROM and edema (1+ to knees) Skin: Present intact; Absent erythema Neuro: Present Grossly Intact, alert, awake and moves all extremities Comment:: Oriented to self and place Assessment and Plan *Assessment and plan (1) Troponin level elevated: Status: Acute Category: Medical Code(s): R79.89 - Other specified abnormal findings of blood chemistry (2) COVID: Status: Acute Category: Medical Code(s): U07.1 - COVID-19 (3) Diabetes mellitus type II, controlled: Status: Acute Category: Medical Code(s): E11.9 - Type 2 diabetes mellitus without complications (4) HLD (hyperlipidemia): Status: Acute Qualifiers: Hyperlipidemia type: unspecified Qualified Code(s): E78.5 - Hyperlipidemia, unspecified Category: Medical Code(s): E78.5 - Hyperlipidemia, unspecified (5) Hypertension: Status: Acute Qualifiers: Hypertension type: essential hypertension Qualified Code(s): I10 - Essential (primary) hypertension Category: Medical Code(s): I10 - Essential (primary) hypertension (6) Major depressive disorder with psychotic features: Status: Acute Category: Medical Code(s): F32.3 - Major depressive disorder, single episode, severe with psychotic features Plan 69-year-old female who presents with weakness and fatigue. Found to have COVID- 19. Also has elevated troponin, likely secondary to viral infection. Cardiology evaluating today. Initiated on remdesivir. Will monitor overnight. Anticipate discharge tomorrow: #COVID-19 Presents with generalized weakness, found to be positive for COVID-19. Denies any shortness of breath or chest pain. Chest x-ray without pneumonia. Continue to hold antibiotics. Continue remdesivir during admission. Will discontinue at discharge. Stable on room air. Anticipate discharge tomorrow On room air oxygenating well. Will defer steroids at this time Elevated troponin Cardial injury Likely nonischemic myocardial injury secondary to COVID. Prior EKG with ST and T wave abnormalities. Today with some flattening of II, III and aVF. Continue therapeutic Lovenox twice daily Continue home atorvastatin 20 mg daily. Discussed case with cardiology, elevated troponin level secondary to COVID. No plan for invasive left heart cath at this time. Recommend outpatient ischemic eval after she has recovered from her acute illness. Echo shows normal EF. #Hypertension: Blood pressure with improved control at 128/55 today. Holding home Lasix, HCTZ, prazosin 2 mg nightly #Renal insufficiency #CKD stage IIIa Of a creatinine of 2.3 with a baseline of around 2 (October 2023) Does not meet criteria for KUSUM at this time. Does likely have mild volume depletion given COVID. Received IV fluids in the Emergency Department with improvement in generalized weakness. Also was noted to have soft blood pressure in the emergency department which also improved after IV fluid administration. Anemia: Uncertain etiology, will transfuse 1 unit PRBCs today. Repeat H&H obtained after with improvement from 6.9 to 8.1. Repeat CBC, CMP, magnesium ordered for the morning; peripheral smear pending; iron labs ordered for the morning. Consider iron infusion in the morning #HLD: Continue home atorvastatin 20 mg daily Depression: Continue Zoloft 200 mg daily Full code Regular diet Lovenox 30 mg subcu daily
[2025-07-05 17:09] LABS: Hemoglobin 8.1 g/dL (12.2-16.2)
[2025-07-05] MEDS: MELATONIN 5MG TABLET 10 MG PO (20:01)
[2025-07-05] MEDS: ATORVASTATIN 20MG TABLET 20 MG PO (20:01)
[2025-07-05] MEDS: PRAZOSIN 1MG CAP 2 MG PO (20:16)
[2025-07-06] VITALS: BP 117/46; PULSE 70; PULSE 72; RESP 16; TEMP 37.4; O2SAT 92
--- NOTE | 2025-07-06 02:09 | PC.NURSE ---
Pt AOx4, pleasant. Airborne/contact precautions in place for COVID. Tolerating room air. Pt is receiving normal saline at 75mL/hr. Currently resting in bed with eyes open. Denies pain or any additional needs at this time. Respirations even and unlabored. Bed is low, locked, and call light is in reach.
[2025-07-06 04:00] VITALS: BP 111/43; PULSE 73; PULSE 74; RESP 18; TEMP 37.3; O2SAT 90; BMI 24.7
[2025-07-06 06:46] LABS: Albumin Level 3.0 g/dl (3.5-5.0); Chloride 99 mmol/L (98-107)
[2025-07-06 06:47] LABS: Potassium 4.0 mmoL/L (3.5-5.1); Sodium 136 mmol/L (136-145)
[2025-07-06 06:49] LABS: Alanine Aminotransferase 7 U/L (12-78); Albumin/Globulin Ratio 0.8 (1.1-1.8); Alkaline Phosphatase 115 U/L (38-126); Anion Gap 12.0 mEq/L (5-15); Aspartate Amino Transferase 17 U/L (14-36); Blood Urea Nitrogen 45 mg/dl (7-17); Calcium 9.0 mg/dl (8.4-10.2); Carbon Dioxide 29 mmol/L (22.0-30.0); Creatinine Clearance Estimated 24 mL/min (50-200); Creatinine,Serum 2.00 mg/dl (0.52-1.04); Estimated Glomerular Filt Rate 25 ml/min (>60); GFR (African American) 30 ML/MIN (>60); Globulin 3.6 g/dL (1.3-3.2); Glucose 100 mg/dl (74-100); Hematocrit 24.2 % (37.0-47.0); Hemoglobin 7.8 g/dL (12.2-16.2); Immature Granulocytes % 0.4 %; Mean Corpuscular HGB Conc 32.2 g/dL (31.8-35.4); Mean Corpuscular Hemoglobin 27.9 pg (27.0-31.2); Mean Corpuscular Volume 86.4 fl (81-99); Nucleated Red Blood Cells % 0 %; Platelet Count 132 K/mm3 (142-424); Red Blood Count 2.80 M/mm3 (4.20-5.40); Red Cell Distribution Width-SD 46.9 fL; Total Protein,Serum 6.6 g/dl (6.3-8.2); White Blood Count 5.0 K/mm3 (4.8-10.8)
[2025-07-06 06:50] LABS: Magnesium 1.8 mg/dl (1.6-2.3)
[2025-07-06 07:28] VITALS: BP 111/51; PULSE 69; RESP 16; TEMP 36.9; O2SAT 93
[2025-07-06 07:28] LABS: Total Iron Binding Capacity 205 ug/dL (265-497)
[2025-07-06 07:52] LABS: Iron 31 ug/dL (37-170)
[2025-07-06 07:56] LABS: Bilirubin,Total < 0.1 mg/dl (0.2-1.3)
[2025-07-06 08:00] VITALS: PULSE 60
--- NOTE | 2025-07-06 08:28 | EXP.DC.SUM ---
General Admission date:: 07/04/25 Discharge date: 07/06/25 HPI HPI HPI: This is a 69-year-old female with a past medical history of hyperlipidemia PTSD, diabetes, depression, renal insufficiency who presents from [facility] for further evaluation of generalized weakness. She reports dizziness since waking this morning and has had progressive weakness throughout the day. She denies any fever, chest pain or shortness of breath. States that she just feels generally unwell. Emergency department workup notable for COVID-19 positive with a positive troponin levels 0.04 with uptrend to 0.06 now 0.08. EKG with some flattening of the ST segment in lead to 3 and aVF. Also notable to have elevated creatinine of 2.3 which is mildly up from baseline of 1.8. Potassium 3.3. Given her elevated troponin, Dr. Roberts was consulted and recommends therapeutic Lovenox with admission. She is admitted to hospital service at this time. Hospital Course Hospital Course Hospital Course: 69-year-old female who presents with weakness and fatigue. Found to have COVID-19. Also has elevated troponin, likely secondary to viral infection. Cardiology evaluating today. Initiated on remdesivir. Did well during admission. Remained stable on room air. Showed improvement. Independently mobile, stable discharge back to her personal-group home. No indication for further treatment specific to COVID at discharge given clinical stability and lack of need of oxygen. Problems addressed as follows: #COVID-19 Presents with generalized weakness, found to be positive for COVID-19. Denies any shortness of breath or chest pain. Chest x-ray without pneumonia. Complain mainly of weakness. Independently mobile with nursing and therapy. Antibiotics were held as she did not have concern for focal bacterial infection. Initiated remdesivir, treated with antiviral during admission. Will not continue at discharge. Tolerating p.o. intake. Stable on room air. Discharge back to personal-group home in stable condition. Elevated troponin Cardial injury Likely nonischemic myocardial injury secondary to COVID. Prior EKG with ST and T wave abnormalities. Did have some flattening of II, III and aVF on EKG. Treated with therapeutic Lovenox twice daily. Continue home Lipitor 20 mg daily. Discussed case with cardiology, elevated troponin level secondary to COVID. No plan for invasive left heart cath at this time. Recommend outpatient ischemic eval after she has recovered from her acute illness. Echo shows normal EF. #Hypertension: Blood pressure with improved control at 128/55 today. Holding home Lasix, HCTZ, prazosin 2 mg nightly #Renal insufficiency #CKD stage IIIa On presentation, creatinine 2.3. Baseline around 2. Not consistent with significant KUSUM. Does likely have mild volume depletion given COVID. Received IV fluids in the Emergency Department with improvement in generalized weakness. Also was noted to have soft blood pressure in the emergency department which also improved after IV fluid administration. Monitored labs during admission. Remained stable. Anemia: Uncertain etiology, will transfuse 1 unit PRBCs on 07/05. Repeat H&H obtained after with improvement from 6.9 to 8.1. Remained stable. No indication for further transfusion. #HLD: Continue home atorvastatin 20 mg daily Depression: Continue Zoloft 200 mg daily Exam Data for Last 24 hours Vital signs and Labs for Last 24 Hours: Temp Pulse Resp BP Pulse Ox O2 Del Method 98.5 F 69 16 111/51 L 93 L Room Air 07/06/25 07:28 07/06/25 07:28 07/06/25 07:28 07/06/25 07:28 07/06/25 07:28 07/06/25 07:59 Laboratory Results - last 24 hr 07/05/25 05:49: Sodium 133 L, Potassium 4.0 D, Chloride 98, Carbon Dioxide 26, Anion Gap 13.0, BUN 57 H, Creatinine 2.10 H, Estimated Creat Clear 22, Estimated GFR 23 L, Est GFR ( Amer) 28 L, Glucose 108 H, Calcium 8.9, Phosphorus 4.2 D, Magnesium 1.6 D, Total Bilirubin 0.2, Direct Bilirubin 0.1, Conjugated Bilirubin 0.0, Indirect Bilirubin 0.1, Unconjugated Bilirubin 0.1, AST 13 L D, ALT 7 L D, Alkaline Phosphatase 135 H, Troponin I 0.06 H, Total Protein 6.2 L D, Albumin 3.1 L D, Triglycerides 59, Cholesterol 97 L, LDL Cholesterol Direct 54.31 L, VLDL Cholesterol 12, HDL Cholesterol 32 L, Cholesterol/HDL Ratio 3.0 07/05/25 06:44: Blood Type Confirm O Positive 07/05/25 10:05: Blood Type O Positive, Antibody Screen Negative, Crossmatch (AHG) See Detail 07/05/25 16:29: Hgb 8.1 L D, Hct 24.8 L 07/06/25 05:28: WBC 5.0, RBC 2.80 L, Hgb 7.8 L, Hct 24.2 L, MCV 86.4, MCH 27.9, MCHC 32.2, RDW 14.8, Plt Count 132 L, MPV 9.6, Neut % (Auto) 70.3, Lymph % (Auto) 21.1, Forest % (Auto) 7.2, Eos % (Auto) 0.8, Baso % (Auto) 0.2, Neut # (Auto) 3.5, Lymph # (Auto) 1.1, Forest # (Auto) 0.4, Eos # (Auto) 0.0, Baso # (Auto) 0.0, Sodium 136, Potassium 4.0, Chloride 99, Carbon Dioxide 29, Anion Gap 12.0, BUN 45 H, Creatinine 2.00 H, Estimated Creat Clear 24, Estimated GFR 25 L, Est GFR ( Amer) 30 L, Glucose 100, Calcium 9.0, Magnesium 1.8 D, Iron 31 L, TIBC 205 L, Iron Saturation 15.64499, Total Bilirubin < 0.1 L, AST 17 D, ALT 7 L, Alkaline Phosphatase 115, Total Protein 6.6, Albumin 3.0 L, Globulin 3.6 H, Albumin/Globulin Ratio 0.8 L I & O for Last 24 hours: Intake & Output 07/03/25 07/04/25 07/05/25 07/06/25 23:59 23:59 23:59 23:59 Intake Total 1999 2370 / 2610 240 / 240 Output Total 1900 / 1900 0 / 0 Balance 1999 470 / 710 240 / 240 Weight 54.839 kg 54.839 kg 55.701 kg Microbiology Reports for the Last 24 Hours: Microbiology 07/04/25 23:35 Blood Blood Culture - Preliminary NO GROWTH AFTER 24 HOURS 07/04/25 16:30 Blood Blood Culture - Preliminary NO GROWTH AFTER 24 HOURS Constitutional Constitutional: no acute distress, chronically ill appearing and cooperative *Routine HEENT Exam Head: Present normocephalic Eye: Present EOMI and PERRL ENT: Present mucous membranes moist Comments: Hirsutism *Routine Neck Exam Neck: Present supple; Absent lymphadenopathy *Routine Respiratory Exam Respiratory: Present CTA bilaterally; Absent rhonchi, wheezes or crackles *Routine Cardiovascular Exam Cardiovascular: Present RRR *Routine Abdominal Exam Abdominal: Present soft and normoactive bowel sounds; Absent tenderness *Routine Rectal Exam Patient deferred: visual exam *Routine Exam Patient deferred: external exam *Routine Extremities Exam Extremities: Absent cyanosis, clubbing or edema *Routine Skin Exam Skin: Present intact and warm; Absent rash *Routine Neurological Exam Neurological: Present alert and moving all extremities Comments: Baseline mentation. Oriented to self and place Routine Psychiatric Exam Psychiatric: Absent normal affect (Flat affect) Results Data Completed and Pending Labs on day of discharge: Labs from last 24 hours 07/06/25 07/05/25 07/05/25 05:28 16:29 10:05 WBC 5.0 RBC 2.80 L Hgb 7.8 L 8.1 L D Hct 24.2 L 24.8 L MCV 86.4 MCH 27.9 MCHC 32.2 RDW 14.8 Plt Count 132 L MPV 9.6 Neut % (Auto) 70.3 Lymph % (Auto) 21.1 Forest % (Auto) 7.2 Eos % (Auto) 0.8 Baso % (Auto) 0.2 Neut # (Auto) 3.5 Lymph # (Auto) 1.1 Forest # (Auto) 0.4 Eos # (Auto) 0.0 Baso # (Auto) 0.0 Sodium 136 Potassium 4.0 Chloride 99 Carbon Dioxide 29 Anion Gap 12.0 BUN 45 H Creatinine 2.00 H Estimated Creat Clear 24 Estimated GFR 25 L Est GFR ( Amer) 30 L Glucose 100 Calcium 9.0 Phosphorus Magnesium 1.8 D Iron 31 L TIBC 205 L Iron Saturation 15.84204 Total Bilirubin < 0.1 L Direct Bilirubin Conjugated Bilirubin Indirect Bilirubin Unconjugated Bilirubin AST 17 D ALT 7 L Alkaline Phosphatase 115 Troponin I Total Protein 6.6 Albumin 3.0 L Globulin 3.6 H Albumin/Globulin Ratio 0.8 L Triglycerides Cholesterol LDL Cholesterol Direct VLDL Cholesterol HDL Cholesterol Cholesterol/HDL Ratio Blood Type O Positive Blood Type Confirm Antibody Screen Negative Crossmatch (AHG) See Detail 07/05/25 07/05/25 06:44 05:49 WBC RBC Hgb Hct MCV MCH MCHC RDW Plt Count MPV Neut % (Auto) Lymph % (Auto) Forest % (Auto) Eos % (Auto) Baso % (Auto) Neut # (Auto) Lymph # (Auto) Forest # (Auto) Eos # (Auto) Baso # (Auto) Sodium 133 L Potassium 4.0 D Chloride 98 Carbon Dioxide 26 Anion Gap 13.0 BUN 57 H Creatinine 2.10 H Estimated Creat Clear 22 Estimated GFR 23 L Est GFR ( Amer) 28 L Glucose 108 H Calcium 8.9 Phosphorus 4.2 D Magnesium 1.6 D Iron TIBC Iron Saturation Total Bilirubin 0.2 Direct Bilirubin 0.1 Conjugated Bilirubin 0.0 Indirect Bilirubin 0.1 Unconjugated Bilirubin 0.1 AST 13 L D ALT 7 L D Alkaline Phosphatase 135 H Troponin I 0.06 H Total Protein 6.2 L D Albumin 3.1 L D Globulin Albumin/Globulin Ratio Triglycerides 59 Cholesterol 97 L LDL Cholesterol Direct 54.31 L VLDL Cholesterol 12 HDL Cholesterol 32 L Cholesterol/HDL Ratio 3.0 Blood Type Blood Type Confirm O Positive Antibody Screen Crossmatch (AHG) Preliminary micro results at discharge 07/04/25 23:35 Blood Culture - Preliminary Blood NO GROWTH AFTER 24 HOURS 07/04/25 16:30 Blood Culture - Preliminary Blood NO GROWTH AFTER 24 HOURS DS: Diagnosis Discharge Diagnosis (1) Troponin level elevated: Status: Acute Code(s): R79.89 - Other specified abnormal findings of blood chemistry (2) COVID: Status: Acute Code(s): U07.1 - COVID-19 (3) Diabetes mellitus type II, controlled: Status: Acute Code(s): E11.9 - Type 2 diabetes mellitus without complications (4) HLD (hyperlipidemia): Status: Acute Code(s): E78.5 - Hyperlipidemia, unspecified Qualifiers: Hyperlipidemia type: unspecified Qualified Code(s): E78.5 - Hyperlipidemia, unspecified (5) Hypertension: Status: Acute Code(s): I10 - Essential (primary) hypertension Qualifiers: Hypertension type: essential hypertension Qualified Code(s): I10 - Essential (primary) hypertension (6) Major depressive disorder with psychotic features: Status: Acute Code(s): F32.3 - Major depressive disorder, single episode, severe with psychotic features Meds Home Medications and Allergies Home Medications ?Medication ?Instructions ?Recorded ?Confirmed ?Type atorvastatin 20 mg tablet (Lipitor) 20 mg PO DAILY 09/02/19 07/05/25 History furosemide 40 mg tablet 40 mg PO DAILY 09/02/19 07/05/25 History hydrochlorothiazide 12.5 mg capsule 12.5 mg PO DAILY 09/02/19 07/05/25 History prazosin 2 mg capsule 2 mg PO HS 09/02/19 07/05/25 History sertraline 100 mg tablet 200 mg PO DAILY 01/01/21 07/05/25 History ergocalciferol (vitamin D2) 1,250 1,250 mcg PO WEEKLY 11/20/23 07/05/25 History mcg (50,000 unit) capsule (Vitamin D2) oxybutynin chloride 10 mg 10 mg PO DAILY 11/20/23 07/05/25 History tablet,extended release 24 hr paliperidone 6 mg tablet,extended 12 mg PO DAILY 11/20/23 07/05/25 History release 24 hr cyanocobalamin (vitamin B-12) 1,000 mcg sublingual DAILY 07/05/25 07/05/25 History 1,000 mcg sublingual tablet ferrous sulfate 325 mg (65 mg 325 mg PO MOWEFR 07/05/25 07/05/25 History iron) tablet (FeroSul) haloperidol 5 mg tablet 7.5 mg PO TID 07/05/25 History melatonin 10 mg tablet 10 mg PO HS 07/05/25 07/05/25 History aspirin 81 mg tablet,delayed 81 mg PO DAILY 30 days #30 tabs 07/06/25 Rx release New Prescriptions to Start Prescriptions: aspirin Lee Dubois Allergies Allergy/AdvReac Type Severity Reaction Status Date / Time latex Allergy Intermediate Rash Verified 01/01/21 11:20 Sulfa (Sulfonamide Allergy Intermediate Rash Verified 01/01/21 11:20 Antibiotics) Discharge Plan Disposition Patient Disposition: Home, Self-Care Condition: Good Follow up Plan Follow up with: Za Ortiz APRN [Nurse Practitioner, Cardiology] - 07/13/25 2:15 pm Provider,Santiago, [Primary Care Provider, Medical] - Enter time for follow up Neva Hills APRN [Referring, Medical] - Enter time for follow up Prescriptions/Medication Reconciliation: New aspirin 81 mg Tablet,Delayed Release (Dr/Ec) 81 mg PO DAILY 30 Days Qty: 30 0RF Continued sertraline 100 mg tablet 200 mg PO DAILY atorvastatin [Lipitor] 20 mg tablet 20 mg PO DAILY furosemide 40 mg tablet 40 mg PO DAILY hydrochlorothiazide 12.5 mg capsule 12.5 mg PO DAILY prazosin 2 mg capsule 2 mg PO HS oxybutynin chloride 10 mg tablet extended release 24hr 10 mg PO DAILY paliperidone 6 mg tablet extended release 24hr 12 mg PO DAILY ergocalciferol (vitamin D2) [Vitamin D2] 1,250 mcg (50,000 unit) capsule 1,250 mcg PO WEEKLY ferrous sulfate [FeroSul] 325 mg (65 mg iron) tablet 325 mg PO MOWEFR cyanocobalamin (vitamin B-12) 1,000 mcg tablet, sublingual 1,000 mcg sublingual DAILY melatonin 10 mg Tablet 10 mg PO HS haloperidol 5 mg tablet 7.5 mg PO TID Problem Reconciliation Problems Reviewed?: Yes Patient Discharge Instructions ACTIVITY: Continue current activity DIET: continue same diet Patient Instructions: Type 2 Diabetes, DI for COVID-19 (Suspected or Confirmed ) Print Language: Indonesian Providers Primary Care Provider: Provider,Referral Admit Provider: Lee Dubois Attending Provider: Lee Dubois
[2025-07-06] MEDS: SERTRALINE 100MG TABLET 200 MG PO (09:11)
[2025-07-06 12:00] VITALS: BP 123/48; PULSE 61; RESP 16; TEMP 36.7; O2SAT 96
[2025-07-06] MEDS: ASPIRIN EC 81MG TABLET 81 MG PO (12:23)
== END 2025-07-06 14:00 | disposition home or self-care (01) ==
LOC: ER 16:37 → 2ND 21:07
PROVIDERS: Nurse Practitioner Acute Care; Physician Assistant; Admitting Provider Internal Medicine Adolescent Medicine; Emergency Provider Student in an Organized Health Care Education/Training Program; Visit Provider Internal Medicine Adolescent Medicine
DX: R79.89 Other specified abnormal findings of blood chemistry (principal); U07.1 COVID-19; E78.5 Hyperlipidemia, unspecified; F32.3 Major depressive disorder, single episode, severe with psychotic features; R53.1 Weakness; Z88.2 Allergy status to sulfonamides; Z91.040 Latex allergy status; Z79.899 Other long term (current) drug therapy; F43.10 Post-traumatic stress disorder, unspecified; E11.22 Type 2 diabetes mellitus with diabetic chronic kidney disease; I12.9 Hypertensive chronic kidney disease with stage 1 through stage 4 chronic kidney disease, or unspecified chronic kidney disease; F17.210 Nicotine dependence, cigarettes, uncomplicated; I35.1 Nonrheumatic aortic (valve) insufficiency; R94.31 Abnormal electrocardiogram [ECG] [EKG]; J84.10 Pulmonary fibrosis, unspecified
CPT/HCPCS: 36415; 36430; 71045; 80048; 80053; 80061; 80076; 83540; 83550; 83735; 83880; 84100; 84443; 84484; 85007; 85014; 85018; 85025; 85027; 85610; 86803; 86850; 87040; 87389; 87631; 93005; 93306; 97162; 97166; 99285; G0378; J0131; J0248; J1650; J2405; J7030; J7050; J7120; P9016

== ENCOUNTER 2025-07-26 06:47 | Outpatient (CLI) | payer MEDICARE, OTHER, SELFPAY ==
--- NOTE | 2025-07-26 | CA_ITS ---
APPROVED REPORT Exam: Pharmacologic Technologist: Paula Mckenzie Ht: 4 ft 11 in Wt: 114 lbs BSA: 1.45 m2 HR: 78 bpm BP: 129/55 mmHg Indications: Rule out ischemia Stress Test Details Test: Lexiscan HR Resting HR: 78 bpm Max Heart Rate (APMHR): 152.401139 bpm Max HR Achieved: 118 bpm Target HR (85% APMHR): 129.410569 bpm % of APMHR: 77.63 Recovery HR: 91 bpm BP Resting BP: 129.0/55.0 mmHg Max BP: 131.0/54.0 mmHg Recovery BP: 117.0/57.0 mmHg ECG Resting ECG: Normal sinus rhythm, incomplete right bundle branch block with ST T wave abnormalities, old anterior myocardial infarction Stress ECG Conclusion Symptoms: None Arrhythmias/Ectopy: None ST-T Changes: < 1.[address] segment changes. Conclusion:Non-diagnostic Lexiscan Stress. Electronically signed by : Alison Peterson MD 07/28/2025 14:47:17
--- OUTSIDE RECORDS SUMMARY | 2025-07-26 06:50 | XMS_ITS | Clinical Summary ---
Author Organization [facility] Address [address] [place] [address] Phone Care Team Providers Care Risk Manager Name Role Phone Unavailable Primary Care Provider Unavailabl e Allergies No known active allergies Medications * This document contains information received from the source organization and may not represent a complete record from that organization. 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 12/22/2023 Delusional disorder 01/12/2023 Psychosis 05/17/2021 Mood insomnia 09/09/2019 PTSD (post-traumatic stress disorder) 09/09/2019 Resolved Problems Problem Noted Date Diagnosed Date Resolved Date Suicidal ideations 10/11/2019 MDD (major depressive disord er), recurrent, severe, with psychosis 09/09/2019 01/18/2024 Complicated grief 09/09/2019 01/18/2024 Medication monitoring encounter 09/09/2019 01/18/2024 Social History Tobacco Use Types Packs/Day Years Used Date Smoking Tobacco: Never Assessed Comments Unknown Sex and Gender Information Value Date Recorded Sex Assigned at Not on file Legal Sex Female 10:34 AM EST Gender Identity Not on file Sexual Orientation Not on file Plan of Treatment Health Maintenance Due Date Last Done Comments Wellness Exam Medicare 1958 Hepatitis C Screening 1974 DTaP/TDaP/Td (1 - Tdap) 1975 Breast Cancer Screening 1996 Cologuard 2001 Colon Cancer Screening 2001 Colonoscopy 2001 FIT 2001 Sigmoidoscopy 2001 Virtual Colonography 2001 Pneumococcal Vaccine 50+ (1 of 1 - PCV) 2006 Zoster (1 of 2) 2006 Bone Density Screening 2021 COVID-19 Vaccine (1 - 2024-2 6 season) 2025 Influenza Vaccine (#1) 2025 Hepatitis B Vaccine Aged Out No longe r eligible based on patient's age to complete this topic Meningococcal B Vaccine Aged Out No l onger eligible based on patient's age to complete this topic Insurance MEDICARE [place] PART A AND B [facility] [place] MDR
--- OUTSIDE RECORDS SUMMARY | 2025-07-26 06:50 | XMS_ITS | Clinical Summary ---
Author Organization [facility] Address [address] [place] [address] Phone Care Team Providers Care Ruby Software Developer Name Role Phone Rissa Carpenter Unavailable [ ] Conditions or Problems Problem Name Problem Code Onset Date Status Entry Date Provider Comment Standard Description Annotate Pulmonary nodule 808836428 (SNOMED CT) Active Kimberly Lugo Solitary nodule of lung Cough, chronic 15029256 (SNOMED CT) Active Kimberly Lugo Chronic cough Edema, BLE R60.0 (ICD-10-CM) Active Kimberly Lugo Localized edema Hypokalemia 17496077 (SNOMED CT) Active Kimberly Lugo Hypokalemia Benign Essential Hypertension 98124928 (SNOMED CT) Active Kimberly Lugo Benign hypertension Medications Medication Instructions Start Date Stop Date Generic Name NDC Provider TRAZODONE HCL 50 MG TABS Take 1 tablet by mouth daily at bedtime 04/01 TRAZODONE HCL 81421918809 Malou K SERTRALINE HCL 50 MG TABS Take 1 tablet by mouth daily 04/01 SERTRALINE HCL 23479893301 Malou K OLANZAPINE 15 MG TABS Take 1 tablet by mouth daily 04/01 OLANZAPINE [id number] Malou K FUROSEMIDE 20 MG TABS Take 1 tablet by mouth daily 04/01 FUROSEMIDE [id number] Malou K HYDROCHLOROTHIAZIDE 12.5 MG CAPS Take 1 tablet by mouth daily 04/01 HYDROCHLOROTHIAZIDE [id number] Malou K AMLODIPINE BESYLATE 5 MG TABS Take one (1) tablet by mouth twice a day 04/01 AMLODIPINE BESYLATE [id number] Malou K Medications Administered No information available. Allergies, Adverse Reactions, Alerts Allergy Name Reaction Description Start Date Severity Statu s Provider [facility] LATEX GLOVES SMALL Moderate Active Malou K BACTRIM Sulfa in general Moderate Active Cl aire K LISINOPRIL dry cough Moderate Active Malou K Results No information available. Plan of Care No information available. Procedures No information available. Vital Signs No information available. Immunizations No information available. Advance Directives No information available.
--- OUTSIDE RECORDS SUMMARY | 2025-07-26 06:50 | XMS_ITS | Clinical Summary ---
Author Organization [facility] Address [address] [place] [address] Care Team Providers Care Data Entry Analyst Name Role Phone Lasha Boogie MD Primary Care Provider [phone] Allergies Active Allergy Reactions Criticality Noted Date Comments Codeine Unknown - Patient st ates they do not know rxn details Low 03/03/2012 Sulfacetamide Unknown - Patient st ates they do not know rxn details Low 03/03/2012 Medications mirtazapine (Remeron) 30 MG tablet 15 mg. Active prazosin (Minipress) 2 MG capsule 1 cap(s) orally once a day (at bedtime) Active sertraline (Zoloft) 50 MG tablet 1 (one) time each day. Active atorvastatin (Lipitor) 20 MG tablet Take 20 mg by mouth 1 (one) time each day. Active furosemide (Lasix) 40 MG tablet Take by mouth 1 (one) time each day. Active hydroCHLOROthia zide (Microzide) 12.5 MG capsule Take 12.5 mg by mouth 1 (one) time each day. Active paliperidone (Invega) 1.5 MG 24 hr tablet Take 1.5 mg by mouth 1 (one) time each day in the morning. Do not crush, chew, or split. Active Melatonin 5 MG tablet tablet Take by mouth every night. Active metFORMIN XR (Glucophage-XR) 750 MG 24 hr tablet Take 750 mg by mouth 2 (two) times a day. Do not crush, chew, or split. Active oxybutynin XL (Ditropan-XL) 10 MG 24 hr tablet Take 10 mg by mouth 1 (one) time each day. Do not crush, chew, or split. Active sertraline (Zoloft) 100 MG tablet Take 100 mg by mouth 1 (one) time each day. Active ergocalciferol (Vitamin D-2) 1.25 MG (61205 UT) capsule Take 50,000 Units by mouth 1 (one) time per week. Active acetaminophen (Tylenol) 500 MG tablet Take by mouth every 6 (six) hours if needed. Active hydrOXYzine HCl (Atarax) 25 MG tablet Take by mouth. Activ e ondansetron (Zofran) 4 MG tablet Take 4 mg by mouth every 8 (eight) hours if needed. Active guaiFENesin (Robitussin) 100 MG/5ML liquid Take 200 mg by mouth 3 (three) times a day if needed. Active ammonium lactate (Amlactin) 12 % cream Apply topically if needed. Active nystatin (Mycostatin) 383705 UNIT/GM powder Apply 1 application topically 2 (two) times a day. Active Active Problems Problem Noted Date Diagnosed Date Essential (primary) hypertension 03/03/2012 Hyperlipidemia 03/03/2012 Immunizations Immunization Administration Dates Next Due DT (pediatric) 12/10/2000 Hep A / Hep B 01/05/2008,12/29/2007 Hep A, ped/adol, 2 dose 01/19/2008 Influenza, injectable, quadrivalent, preservativ e free 05/28/2020 Pneumococcal Polysaccharide PPV23 07/03/2003 Td (adult) 01/20/2021 Family History Medical History Relation Name Comments Hypertension Father Family history of hypertension Hypertension Mother Family history of hypertension Relation Name Status Comments Father Mother Social History Tobacco Use Types Packs/Day Years Used Date Smoking Tobacco: Never Passive Smoke Exposure: Never Smokeless Tobacco: Never Tobacco Cessation:Counseling Given: Not Answered Alcohol Use Standard Drinks/Week Comments Yes 0 (1 standard drink = 0.6 oz pur e alcohol) Comments Unknown Sex and Gender Information Value Date Recorded Sex Assigned at Not on file Legal Sex Female 8:50 PM EDT Gender Identity Not on file Sexual Orientation Not on file Last Filed Vital Signs Vital Sign Reading Time Taken Comments Blood Pressure 170/73 12/09/2021 11:34 AM EDT Pulse 78 12/09/2021 11:34 AM EDT Temperature - - Respiratory Rate - - Oxygen Saturation - - Inhaled Oxygen Concentration - - Weight 69.8 kg (153 lb 12.8 oz) 022 11:34 AM EDT Height - - Body Mass Index - - Plan of Treatment Health Maintenance Due Date Last Done Comments [facility]-Bone Density Scan 1956 [facility]-Depression Screening 1956 [facility]-/Child/Adol SDOH Screenings 1956 [facility]- SDOH Screenings 1974 [facility]-Adult SDOH Screenings 1974 CT Colonography 2001 Colonoscopy 2001 FIT-DNA 2001 FIT 2001 FOBT 2001 Sigmoidoscopy 2001 [facility]-Colorectal Cancer Screening 2001 [facility]-Pneumococcal Vaccine: 50+ Years (2 of 2 - PCV) 2006 07/03/2003 [facility]-Zoster Vaccines (1 of 2) 2006 OCI-EODDE-31 Vaccine (4 - season) 2025 05/27/2021, 08/25/2020, 08/04/2020 [facility]-Influenza Vaccine (#1) 2025 05/28/2020 [facility]-DTaP,Tdap,and Td Vaccines (3 - Tdap) 01/20/2031 01/20/2021, 12/10/2000 [facility]-RSV Vaccine: 60+ Years or (1 - 1-dose 75+ series) 2031 [facility]-Hepatitis A Vaccines Aged Out 008, 01/05/2008, 12/29/2007 No longer eligible based on patient's age to complete this topic [facility]-Diabetes: Hemoglobin A1C Discontinued 07/22/2019, 07/02/2018, 12/28/2017, Additional history exists HPV Vaccines (No Doses Required) Completed [facility]-HIB Vaccines Aged Out No longer e ligible based on patient's age to complete this topic [facility]-IPV Vaccines Aged Out No longer e ligible based on patient's age to complete this topic [facility]-Rotavirus Vaccines Aged Out No lo nger eligible based on patient's age to complete this topic Procedures Procedure Name Priority Date/Time Associated Diagnosis Comments HEMOGLOBIN A1C Routine 07/22/2019 6:49 AM EST from Last 3 Months or Most Recently Relevant to Health Maintenance Results * (ABNORMAL) Hemoglobin A1c (07/22/2019 6:49 AM EST) Hemoglobin A1c 6.4(H) 4.7 - 6.0 % SUNQUEST Comment: Glycohemoglobin Reference Range, 0 years and up: 4.7 to 6.0% . HA1C Interpretive Data: Diagnosis of Diabetes: Diabetic > or = 6.5% Pre-diabetic 5.7 to 6.4% Non-diabetic < or = 5.6% . Glycemic Targets for Type I and Type II Diabetics: Non- Adults <7.0% Adults <6.0% Children and Adolescents <7.5% . Source: [place] [employer]. Standards of medical care in diabetes, 2017. Diabetes Care.2017:40 (suppl 1):S1-S135. . HbA1c assay performed by an ion-exchange chromatography method that is certified traceable to the DCCT. 07/22/2019 6:49 AM EST 07/22/2019 9:37 AM EST us [facility] LAB BLOOD ORDERABLES Final Resu lt SUNQUEST from Last 3 Months or Most Recently Relevant to Health Maintenance Insurance MEDICARE Care Teams Data Entry Analyst Relationship Specialty Start Date End Date Lasha Boogie MD [address] [place] [address] PCP - General 06/06/21
--- NOTE | 2025-07-26 07:00 | NM_ITS ---
APPROVED REPORT Exam: Nuclear Stress Test Indication: Chest pain, SOB, HTN, DM, High cholesterol, Family history Patient Location: Out[facility] Tech: Paula Mckenzie PA Tech:Yessy Mims, ARRT, RT (R)(N) Ht: 4 ft 11 in Wt: 110 lbs Bra Size: 38B HR: 79 bpm BP: 129/55 mmHg BSA: 1.43 m2 TID: 0.95 BMI: 22.2 History: Chest pain, SOB, HTN, DM, High cholesterol, Family history Procedure: Patient received 0.4 mg of intravenous Lexiscan, resting heart rate 79 bpm, resting blood pressure 129/55 mmHg, with Lexiscan maximum heart rate achieved was 119 bpm which is % of the maximum predicted heart rate and blood pressure was 131/54 mmHg. With Lexiscan, patient denied any complaint of chest pain. Cardiac Stress and Resting SPECT Images: Cardiac Stress and Resting SPECT images were obtained using technetium 99m Myoview 32.3 mCi stress and 10.65 mCi at rest. The patient could not lie on her abdomen. Therefore, prone stress imaging could not be performed. This may affect the diagnostic interpretation of the study findings. Resting and stress imaging in supine positions demonstrate a medium-sized, moderate, fixed perfusion defect in the inferior LV wall. No evidence of reversible ischemia. Gated imaging demonstrates normal global LV systolic function. LVEF is calculated at 54%. Conclusion: Medium-sized, moderate, fixed perfusion defect in the inferior LV wall. No evidence of reversible ischemia. This may represent diaphragmatic attenuation, but true fixed perfusion defect cannot be entirely ruled out. Gated imaging demonstrates normal global LV systolic function. LVEF is calculated at 54%. Electronically signed by : Alison Peterson MD 07/28/2025 14:30:02
[2025-07-26] MEDS: ISOTOPE MYOVIEW (PER STUDY) 1 DOSE IV (08:34)
[2025-07-26] MEDS: SODIUM CHLORIDE 0.9% 10ML SYR (RAD ONLY) 10 ML IV ×2 (08:34)
== END 2025-07-26 23:59 | disposition home or self-care (01) ==
LOC: RAD 06:48
PROVIDERS: PCP Nurse Practitioner Family; Visit Provider Nurse Practitioner Family
DX: I21.4 Non-ST elevation (NSTEMI) myocardial infarction (principal); I45.19 Other right bundle-branch block; I25.2 Old myocardial infarction; R79.89 Other specified abnormal findings of blood chemistry; R94.39 Abnormal result of other cardiovascular function study; I10 Essential (primary) hypertension; E11.9 Type 2 diabetes mellitus without complications; E78.00 Pure hypercholesterolemia, unspecified
CPT/HCPCS: 78452; 93017; 93018; A9502; J2785